=== PATIENT | male | born 1940 | race Caucasian/White ===

== ENCOUNTER 2019-04-04 09:47 | Inpatient (IN) | payer MEDICARE ==
[2019-04-04] MEDS ORDERED: SODIUM CHLORIDE 0.9% 1,000 ML IV STA (10:24)
--- NOTE | 2019-04-04 10:32 | ED ---
General Adult HPI - General Chief complaint: Abdominal Pain Stated complaint: abdominal pain Time Seen by Provider: 04/04/19 10:05 Source: patient, RN notes reviewed Mode of arrival: ambulatory Limitations: no limitations - History of Present Illness Initial comments: 79-year-old male with a past medical history of CLL, hernia repair presents to the emergency department for a chief complaint of abdominal pain. Patient states he has had right lower abdominal pain for several weeks however this worsened in the past few days. Patient denies any alleviating factors and states he has tried to take Pepcid without relief. Patient denies noticing any aggravating factors. Denies fevers or chills. Does admit that bowel movements do seem different, thinks he may be somewhat constipated. States he did try a suppository yesterday without relief. Patient does admit to 2 episodes of vomiting yesterday after trying to take Pepcid. Denies any significant nausea at this time. Patient has no other complaints at this time including shortness of breath, chest pain, headache, or visual changes. - Related Data Home Medications Medication Instructions Recorded Confirmed Ascorbic Acid [Vitamin C] 500 mg PO DAILY@1200 03/02/16 04/04/19 Aspirin [Adult Low Dose Aspirin EC] 81 mg PO Q96H 03/02/16 04/04/19 Multivitamins, Thera [Multivitamin] 1 tab PO DAILY@1200 03/02/16 04/04/19 Bifidobacterium Infantis [Align] 4 mg PO HS 04/04/19 04/04/19 Allergies Allergy/AdvReac Type Severity Reaction Status Date / Time Penicillins Allergy Swelling Verified 04/04/19 10:08 Sulfa (Sulfonamide Allergy Rash/Hives Verified 04/04/19 10:08 Antibiotics) Review of Systems ROS Statement: Those systems with pertinent positive or pertinent negative responses have been documented in the HPI. ROS Other: All systems not noted in ROS Statement are negative. Past Medical History Past Medical History: Cancer Additional Past Medical History / Comment(s): hx of CLL, DX 2000, follows up at [facility], seasonal allergies, hx polyps, hx hemorrhoids History of Any Multi-Drug Resistant Organisms: None Reported Past Surgical History: Hernia Repair Additional Past Surgical History / Comment(s): colonoscopy Past Anesthesia/Blood Transfusion Reactions: No Reported Reaction Past Psychological History: No Psychological Hx Reported Smoking Status: Former smoker Past Alcohol Use History: None Reported Past Drug Use History: None Reported - Past Family History Mother Family Medical History: Cancer Additional Family Medical History / Comment(s): breast Son(s) Family Medical History: Cancer, Coronary Artery Disease (CAD), Myocardial Infarction ([place]) Additional Family Medical History / Comment(s): non hodgkins lymphoma, General Exam Limitations: no limitations General appearance: alert, in no apparent distress Head exam: Present: atraumatic, normocephalic, normal inspection Eye exam: Present: normal appearance, PERRL, EOMI. Absent: scleral icterus, conjunctival injection, periorbital swelling ENT exam: Present: normal exam, mucous membranes moist Neck exam: Present: normal inspection, full ROM. Absent: tenderness, meningismus, lymphadenopathy Respiratory exam: Present: normal lung sounds bilaterally. Absent: respiratory distress, wheezes, rales, rhonchi, stridor Cardiovascular Exam: Present: tachycardia GI/Abdominal exam: Present: soft, tenderness (Patient has tenderness noted in the right lower quadrant suprapubic area. No tenderness in the upper abdomen, no tenderness in the left lower quadrant), normal bowel sounds, other (Noted induration in the right lower quadrant). Absent: distended, guarding, rebound, rigid Neurological exam: Present: alert, oriented X3, CN II-XII intact Psychiatric exam: Present: normal affect, normal mood Course Vital Signs 04/04/19 04/04/19 04/04/19 09:50 10:30 11:00 Temperature 98.5 F Pulse Rate 60 Respiratory 20 Rate Blood Pressure 91/62 113/71 113/71 O2 Sat by Pulse 96 94 L 99 Oximetry 04/04/19 04/04/19 04/04/19 11:30 12:00 12:19 Temperature 98.7 F Pulse Rate 112 H 116 H Respiratory 22 16 Rate Blood Pressure 112/63 102/64 O2 Sat by Pulse 99 100 Oximetry 04/04/19 04/04/19 12:30 13:00 Temperature Pulse Rate 111 H 112 H Respiratory 19 22 Rate Blood Pressure 126/76 109/64 O2 Sat by Pulse 95 Oximetry - Reevaluation(s) Reevaluation #1: 04/04/19 11:09 Patient reevaluated, comfortable in bed. Blood pressure 112/63, heart rate 111. Reevaluation #2: 04/04/19 11:34 Lactic 2.8, patient given 30 mL's per kilogram based on an ideal body weight of 75.2 kg. Reevaluation #3: 04/04/19 17:26 Dr. Romo requested NG tube, CBC CMP PT/INR in the morning as well as Levaquin 500 mg daily to nurse. This was ordered. EKG Findings - EKG Comments: EKG Findings:: Sinus tachycardia, ventricular rate 114, MO intervals 130, QTC 443 Medical Decision Making - Medical Decision Making 79-year-old male with a past medical history of CLL, hernia repair presents to the emergency room for a chief complaint of abdominal pain. States he has had right lower abdominal pain for several weeks however this worsen in the past few days. Worst last night. Does admit to one episode of vomiting that he states is more like a dry heaves, denies significant nausea at this time. Denies any aggravating or alleviating factors. On exam patient does have an induration noted of the right lower quadrant concerning for mass. CBC did show a white count of 18.4 with a lactic of 2.8, blood cultures pending. Patient was given 30 mL's per kilogram of fluids as he has been tachycardic in the 110s. However blood pressure is stable. Urine does not shows evidence of infection. He does have 53 red blood cells however was catheterized as he was not able to produce a urine sample. CT abdomen and pelvis did show a large right colonic mass with marked dilation of the cecum and small bowel compatible with high-grade obstruction. Findings suggestive of colonic malignancy with numerous hepatic lesions suggestive of metastasis as well as retroperitoneal lymphadenopathy. Dr. Romo does recommend IV Levaquin as well as NG tube to be started. Patient informed that he will be seen tomorrow morning by Dr. Romo/ - Lab Data Result diagrams: 04/04/19 10:09 04/04/19 10:09 Lab Results 04/04/19 04/04/19 04/04/19 Range/Units 10:09 10:09 10:09 WBC 18.4 H (3.8-10.6) k/uL RBC 6.23 H (4.30-5.90) m/uL Hgb 13.5 (13.0-17.5) gm/dL Hct 44.4 (39.0-53.0) % MCV 71.2 L (80.0-100.0) fL MCH 21.7 L (25.0-35.0) pg MCHC 30.4 L (31.0-37.0) g/dL RDW 15.3 (11.5-15.5) % Plt Count 364 (150-450) k/uL Neutrophils % 87 % Lymphocytes % 6 % Monocytes % 6 % Eosinophils % 0 % Basophils % 0 % Neutrophils # 15.9 H (1.3-7.7) k/uL Lymphocytes # 1.1 (1.0-4.8) k/uL Monocytes # 1.1 H (0-1.0) k/uL Eosinophils # 0.0 (0-0.7) k/uL Basophils # 0.1 (0-0.2) k/uL Hypochromasia Slight Microcytosis Moderate Sodium 137 (137-145) mmol/L Potassium 4.5 (3.5-5.1) mmol/L Chloride 102 (98-107) mmol/L Carbon Dioxide 22 (22-30) mmol/L Anion Gap 13 mmol/L BUN 22 H (9-20) mg/dL Creatinine 1.09 (0.66-1.25) mg/dL Est GFR (CKD-EPI)AfAm 74 (>60 ml/min/1.73 sqM) Est GFR (CKD-EPI)NonAf 64 (>60 ml/min/1.73 sqM) Glucose 181 H (74-99) mg/dL Lactic Ac Sepsis Rflx Plasma Lactic Acid Tha 2.8 H* (0.7-2.0) mmol/L Calcium 10.3 H (8.4-10.2) mg/dL Total Bilirubin 1.3 (0.2-1.3) mg/dL AST 36 (17-59) U/L ALT 23 (21-72) U/L Alkaline Phosphatase 163 H (38-126) U/L Total Protein 6.3 (6.3-8.2) g/dL Albumin 4.0 (3.5-5.0) g/dL Amylase 76 (30-110) U/L Lipase 81 (23-300) U/L Urine Color Urine Appearance (Clear) Urine pH (5.0-8.0) Ur Specific [place] (1.001-1.035) Urine Protein (Negative) Urine Glucose (UA) (Negative) Urine Ketones (Negative) Urine Blood (Negative) Urine Nitrite (Negative) Urine Bilirubin (Negative) Urine Urobilinogen (<2.0) mg/dL Ur Leukocyte Esterase (Negative) Urine RBC (0-5) /hpf Urine WBC (0-5) /hpf Ur Squamous Epith Cells (0-4) /hpf Urine Bacteria (None) /hpf Hyaline Casts (0-2) /lpf Urine Mucus (None) /hpf 04/04/19 04/04/19 Range/Units 11:31 12:19 WBC (3.8-10.6) k/uL RBC (4.30-5.90) m/uL Hgb (13.0-17.5) gm/dL Hct (39.0-53.0) % MCV (80.0-100.0) fL MCH (25.0-35.0) pg MCHC (31.0-37.0) g/dL RDW (11.5-15.5) % Plt Count (150-450) k/uL Neutrophils % % Lymphocytes % % Monocytes % % Eosinophils % % Basophils % % Neutrophils # (1.3-7.7) k/uL Lymphocytes # (1.0-4.8) k/uL Monocytes # (0-1.0) k/uL Eosinophils # (0-0.7) k/uL Basophils # (0-0.2) k/uL Hypochromasia Microcytosis Sodium (137-145) mmol/L Potassium (3.5-5.1) mmol/L Chloride (98-107) mmol/L Carbon Dioxide (22-30) mmol/L Anion Gap mmol/L BUN (9-20) mg/dL Creatinine (0.66-1.25) mg/dL Est GFR (CKD-EPI)AfAm (>60 ml/min/1.73 sqM) Est GFR (CKD-EPI)NonAf (>60 ml/min/1.73 sqM) Glucose (74-99) mg/dL Lactic Ac Sepsis Rflx Y Plasma Lactic Acid Tha (0.7-2.0) mmol/L Calcium (8.4-10.2) mg/dL Total Bilirubin (0.2-1.3) mg/dL AST (17-59) U/L ALT (21-72) U/L Alkaline Phosphatase (38-126) U/L Total Protein (6.3-8.2) g/dL Albumin (3.5-5.0) g/dL Amylase (30-110) U/L Lipase (23-300) U/L Urine Color [place] Urine Appearance Clear (Clear) Urine pH 5.5 (5.0-8.0) Ur Specific [place] 1.030 (1.001-1.035) Urine Protein 1+ H (Negative) Urine Glucose (UA) Negative (Negative) Urine Ketones Trace H (Negative) Urine Blood Small H (Negative) Urine Nitrite Negative (Negative) Urine Bilirubin Negative (Negative) Urine Urobilinogen 2.0 (<2.0) mg/dL Ur Leukocyte Esterase Trace H (Negative) Urine RBC 53 H (0-5) /hpf Urine WBC 3 (0-5) /hpf Ur Squamous Epith Cells 1 (0-4) /hpf Urine Bacteria Rare H (None) /hpf Hyaline Casts 16 H (0-2) /lpf Urine Mucus Few H (None) /hpf Disposition Clinical Impression: Colonic mass, Bowel obstruction Disposition: ADMITTED IP TO THIS HOSP Condition: Fair Time of Disposition: 17:37
[2019-04-04 10:51] LABS: Basophils # (A) 0.1 k/uL (0-0.2); Basophils % (A) 0 %; Eosinophils % (A) 0 %; HCT 44.4 % (39.0-53.0); HGB 13.5 gm/dL (13.0-17.5); Hypochromasia Slight; Lymphocytes # (A) 1.1 k/uL (1.0-4.8); Lymphocytes % (A) 6 %; MCH 21.7 pg (25.0-35.0); MCHC 30.4 g/dL (31.0-37.0); MCV 71.2 fL (80.0-100.0); Mean Platelet Volume 7.8; Microcytosis Moderate; Monocytes # (A) 1.1 k/uL (0-1.0); Monocytes % (A) 6 %; Neutrophils # (A) 15.9 k/uL (1.3-7.7); Neutrophils % (A) 87 %; Platelet Count 364 k/uL (150-450); RBC 6.23 m/uL (4.30-5.90); RDW 15.3 % (11.5-15.5); WBC 18.4 k/uL (3.8-10.6)
[2019-04-04 11:01] LABS: Calcium 10.3 mg/dL (8.4-10.2); Potassium 4.5 mmol/L (3.5-5.1); Total Bilirubin 1.3 mg/dL (0.2-1.3); Total Protein 6.3 g/dL (6.3-8.2)
[2019-04-04] MEDS ORDERED: SODIUM CHLORIDE 0.9% 500 ML 500 ML IV STA (11:16)
[2019-04-04] MEDS ORDERED: SODIUM CHLORIDE 0.9% 800 ML IV STA (11:34)
[2019-04-04 12:25] LABS: Appearance,Urine Clear (Clear); Bacteria,Urine Rare /hpf; Bilirubin,Urine Negative (Negative); Blood,Urine Small (Negative); Color,Urine Orange; Glucose,Urine (UA) Negative (Negative); Hyaline Casts,Urine 16 /lpf (0-2); Ketones,Urine Trace (Negative); Leukocyte Esterase,Urine Trace (Negative); Mucus,Urine Few /hpf; Nitrite,Urine Negative (Negative); PH, Urine 5.5 (5.0-8.0); Protein,Urine 1+ (Negative); RBC,Urine 53 /hpf (0-5); Squamous Epithelial Cell,Urine 1 /hpf (0-4); WBC,Urine 3 /hpf (0-5)
--- NOTE | 2019-04-04 13:19 | CT ---
EXAMINATION TYPE: CT abdomen pelvis w con DATE OF EXAM: 04/04/2019 COMPARISON: None HISTORY: RLQ pain CT DLP: 952.5 mGycm Automated exposure control for dose reduction was used. CONTRAST: CT scan of the abdomen pelvis is performed with IV Contrast, patient injected with 100 mL of Isovue 3 00. FINDINGS- LUNG BASES-year subsegmental changes involving the lung bases suggestive of scar or atelectasis.. LIVER/GB-there are numerous intrahepatic lesions seen throughout the liver pattern compatible metasta sis involving all segments and lobes of the liver. At least 20 lesions are seen with the largest in t he posterior segment of the right lobe of the liver measuring approximately 1.8 cm.. PANCREAS- No gross abnormality is seen. SPLEEN- No gross abnormality is seen. ADRENALS- No gross abnormality is seen. KIDNEYS/BLADDER- no hydronephrosis nephrolithiasis or renal mass. BOWEL-there are dilated small bowel loops in a pattern suggestive of obstruction. There is a large mi xed fluid and air attenuation in the right lower quadrant representing a dilated cecum with extrinsic soft tissue component likely representing a neoplastic process of the right colon and subsequent cec al dilation. Surgical consultation suggested.. LYMPH NODES- There are shoddy lymph nodes seen in the periaortic region with the largest measuring a short axis of 1.8 cm. Findings compatible with adenopathy. OSSEOUS STRUCTURES-hypertrophic and degenerative change of the vertebral column.. OTHER- aorta of normal caliber with atherosclerotic changes. IMPRESSION- 1. Large right colonic mass with marked dilation of the cecum and small bowel compatible with high-gr hayden obstruction. Findings suggestive of a colonic malignancy. 2. Numerous hepatic lesions suggestive of metastases. 3. Retroperitoneal lymphadenopathy.
[2019-04-04] MEDS ORDERED: HYDROmorphone 0.5 MG/0.5 ML SYRINGE IVP PRN (13:38)
[2019-04-04] MEDS ORDERED: NALOXONE 0.4 MG/ML 1 ML VIAL IV PRN (13:38)
[2019-04-04] MEDS ORDERED: LEVOFLOXACIN 500MG-D5W PMX 500 MG in DEXTROSE/WATER 1 100ML.BAG IVPB SCH (15:30)
--- NOTE | 2019-04-04 15:35 | P.PN ---
Progress Note - Text Progress Note Date: 04/04/19 the patient's CAT scan was reviewed. He has a large right colon tumor obstructing the cecum and small bowel. The patient has a high-grade bowel obstruction. He will have a nasogastric tube placed. He was started on IV antibiotics and received a fluid bolus. He will be reassessed and most likely need surgery in the a.m. for his bowel obstruction.
--- NOTE | 2019-04-04 16:20 | XR ---
EXAMINATION TYPE: XR chest 1V DATE OF EXAM: 04/04/2019 COMPARISON: NONE HISTORY: NG tube placement TECHNIQUE: Single frontal view of the chest is obtained. FINDINGS: There is subsegmental consolidation at the right lung base. NG tube is coiled within the l eft upper quadrant likely within the stomach. Patient is rotated with no obvious pneumothorax or over t failure. Heart size grossly within normal limits. IMPRESSION: 1. Right basilar atelectasis or infiltrate. 2. NG tube coiled within the left upper quadrant likely within the stomach.
[2019-04-04] MEDS: SODIUM CHLORIDE 0.9% 1,000 ML IV SCH (16:24)
[2019-04-04] MEDS ORDERED: ACETAMINOPHEN IV (For NPO) 1,000 MG in EMPTY BAG 1 BAG IVPB ONE (18:36)
[2019-04-04] MEDS: PIPERACILLIN-TAZOBACTAM 3.375 GM in SODIUM CHLORIDE 0.9% 100 ML IVPB SCH (20:51)
--- NOTE | 2019-04-04 20:59 | P.HPIM ---
History of Present Illness H&P Date: 04/04/19 Chief Complaint: severe intractable dominant pain, bowel obstruction, large mass in the rig 7-year-old male one of my office patient with known for the last 7 years with past medical history of CLL, history of elevated blood pressure and BPH along with mild hyperlipidemia who has been doing well was moved to [facility] few years ago used to see all primary care and health care provider down at [facility]. Patient called this morning complaining of intractable pain with nausea for the last few days with no bowel movement become much worse symptoms located in the right lower quadrant area was instructed to bring him to the emergency department where was seen and evaluated at [facility] surprisingly abdominal CT came back with large mass in the right side with metastasis looks like stage IV colon cancer. Review his last colonoscopy from 2015 was negative for any polyp colitis or finding at the time. Patient also is going through bowel obstruction NG tube was inserted patient was seen general surgery in consultation with his temperature been elevated patient was started on Zosyn and Levaquin pain management IV fluid resuscitation and will be admitted to the hospital for the above problem. Review of Systems CONSTITUTIONAL: Well-developed no acute respiratory distress. EYES: No icterus sclerae, no conjunctivitis. EARS, NOSE, MOUTH, THROAT, and FACE: No sore throat, lymphadenopathy, carotid b ruits or deformity. RESPIRATORY: No SOB cough or wheezes. CARDIOVASCULAR: No CP, Palpitation, PND, Orthopnea, or angina. GASTROINTESTINAL: abdominal pain with nausea vomiting distention and mass in t he right colon area. GENITOURINARY: Negative for Hematuria or UTI, no kidney stones. INTEGUMENT/BREAST: Negative for any muscular injury with mild osteoarthritis.. HEMATOLOGIC/LYMPHATIC: history of CLL, mass was found today in the right MUSCULOSKELTAL: Negative for Myalgia or arthralgia. NEURLOGICAL: No LOC, Sz or syncope, blurred vision dizziness or abnormality.. BEHAVIORAL/PSYCH: Negative. ENDOCRINE: Negative. Past Medical History Past Medical History: Cancer Additional Past Medical History / Comment(s): hx of CLL, DX 2000, follows up at [facility], seasonal allergies, hx polyps, hx hemorrhoids History of Any Multi-Drug Resistant Organisms: None Reported Past Surgical History: Hernia Repair Additional Past Surgical History / Comment(s): colonoscopy Past Anesthesia/Blood Transfusion Reactions: No Reported Reaction Past Psychological History: No Psychological Hx Reported Smoking Status: Former smoker Past Alcohol Use History: None Reported Past Drug Use History: None Reported - Past Family History Mother Family Medical History: Cancer Additional Family Medical History / Comment(s): breast Son(s) Family Medical History: Cancer, Coronary Artery Disease (CAD), Myocardial Infarction ([place]) Additional Family Medical History / Comment(s): non hodgkins lymphoma, Medications and Allergies Home Medications Medication Instructions Recorded Confirmed Type Ascorbic Acid [Vitamin C] 500 mg PO DAILY@1200 03/02/16 04/04/19 History Aspirin [Adult Low Dose Aspirin EC] 81 mg PO Q96H 03/02/16 04/04/19 History Multivitamins, Thera [Multivitamin] 1 tab PO DAILY@1200 03/02/16 04/04/19 History Bifidobacterium Infantis [Align] 4 mg PO HS 04/04/19 04/04/19 History Allergies Allergy/AdvReac Type Severity Reaction Status Date / Time Penicillins Allergy Swelling Verified 04/04/19 10:08 Sulfa (Sulfonamide Allergy Rash/Hives Verified 04/04/19 10:08 Antibiotics) Physical Exam Vitals: Vital Signs Temp Pulse Resp BP Pulse Ox 04/04/19 18:30 107 H 19 108/70 95 04/04/19 18:20 101.1 F H 04/04/19 18:00 113 H 22 113/69 94 L 04/04/19 17:30 112 H 21 114/69 95 04/04/19 17:00 114 H 19 119/72 95 04/04/19 16:30 111 H 20 131/82 95 04/04/19 16:00 114 H 17 119/68 04/04/19 15:30 111 H 19 117/70 96 04/04/19 15:00 113 H 16 111/68 97 04/04/19 14:30 110 H 16 122/75 98 04/04/19 14:00 112 H 17 119/73 99 04/04/19 13:30 115 H 18 109/64 98 04/04/19 13:00 112 H 22 109/64 95 04/04/19 12:30 111 H 19 126/76 04/04/19 12:19 98.7 F 04/04/19 12:00 116 H 16 102/64 100 04/04/19 11:30 112 H 22 112/63 99 04/04/19 11:00 113/71 99 04/04/19 10:30 113/71 94 L 04/04/19 09:50 98.5 F 60 20 91/62 96 Intake and Output 04/04/19 04/04/19 04/04/19 06:59 14:59 22:59 Other: Weight 74.389 kg General Appearance: Alert, cooperative, no distress, appears stated age. Neck HEENT: Supple, no lymphadenopathy, no thyroid enlargement, no carotid bruits. Lungs: Clear to auscultation without crackles or wheezes no rhonchi, no deformity. Chest Wall: Chest wall normal expansion with deep inspiration no tenderness and no deformity was found on exam, no costochondral pain or discomfort. Heart: Regular rate and rhythm, S1, S2 normal, no murmur, rub or gallop. Back: Symmetric, no curvature, ROM normal, no CVA tenderness. Abdomen: distended with quite bit tenderness and discomfort in the right lower quadrant area with mid epigastric discomfort as well not able to feel any lymph node in the groin area at this point. Extremities: Extremities normal, atraumatic, no cyanosis or edema. Pulses: 2+ and symmetric. Skin: Skin color, texture, tugor normal, no rashes or lesions. Neurologic: Alert oriented x3 cranial nerves II through XII intact, no motor deficit, no abnormal balance or gait. Results CBC & Chem 7: 04/04/19 10:09 04/04/19 10:09 Labs: Abnormal Lab Results - Last 24 Hours (Table) 04/04/19 04/04/19 04/04/19 Range/Units 10:09 10:09 10:09 WBC 18.4 H (3.8-10.6) k/uL RBC 6.23 H (4.30-5.90) m/uL MCV 71.2 L (80.0-100.0) fL MCH 21.7 L (25.0-35.0) pg MCHC 30.4 L (31.0-37.0) g/dL Neutrophils # 15.9 H (1.3-7.7) k/uL Monocytes # 1.1 H (0-1.0) k/uL BUN 22 H (9-20) mg/dL Glucose 181 H (74-99) mg/dL Plasma Lactic Acid Tha 2.8 H* (0.7-2.0) mmol/L Calcium 10.3 H (8.4-10.2) mg/dL Alkaline Phosphatase 163 H (38-126) U/L Urine Protein (Negative) Urine Ketones (Negative) Urine Blood (Negative) Ur Leukocyte Esterase (Negative) Urine RBC (0-5) /hpf Urine Bacteria (None) /hpf Hyaline Casts (0-2) /lpf Urine Mucus (None) /hpf 04/04/19 Range/Units 12:19 WBC (3.8-10.6) k/uL RBC (4.30-5.90) m/uL MCV (80.0-100.0) fL MCH (25.0-35.0) pg MCHC (31.0-37.0) g/dL Neutrophils # (1.3-7.7) k/uL Monocytes # (0-1.0) k/uL BUN (9-20) mg/dL Glucose (74-99) mg/dL Plasma Lactic Acid Tha (0.7-2.0) mmol/L Calcium (8.4-10.2) mg/dL Alkaline Phosphatase (38-126) U/L Urine Protein 1+ H (Negative) Urine Ketones Trace H (Negative) Urine Blood Small H (Negative) Ur Leukocyte Esterase Trace H (Negative) Urine RBC 53 H (0-5) /hpf Urine Bacteria Rare H (None) /hpf Hyaline Casts 16 H (0-2) /lpf Urine Mucus Few H (None) /hpf Thrombosis Risk Factor Assmnt - DVT/VTE Prophylaxis DVT/VTE Prophylaxis: Pharmacologic Prophylaxis ordered, Mechanical Prophylaxis ordered Assessment and Plan Plan: 1 severe intractable abdominal pain: Secondary to bowel obstruction from large right-sided colon cancer, patient has an NG tube CT was done continue IV antibiotics, IV hydration, pain management and general surgery consultation. 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 3 large right-sided colon cancer or mass: seen general surgery [facility], further lab and oncology consultation. 4 history of CLL: Has been in remission. 5 fever or chills and possible infectious colitis beside obstruction, with a concern about any early perforation and very toenail irritation patient was started on Zosyn and Levaquin. 6 BPH: Watch for any urinary retention. 7 GI prophylaxis: Patient will be on pantoprazole 40 mg daily. 8 DVT prophylaxis: Patient will be on heparin 5000 units subcutaneous twice a day. CODE STATUS: Full code. Admit patient to inpatient status for more than 2 nights.
[2019-04-04 21:24] LABS: Glucose,Whole Blood 145 mg/dL (75-99)
[2019-04-05] MEDS: PANTOPRAZOLE 40 MG/10 ML VIAL IVP SCH ×2 (00:11→09:09)
[2019-04-05] MEDS: HEPARIN SODIUM,PORCINE 5,000 UNIT/ML 1 ML VIAL SQ SCH ×3 (00:12→16:13)
[2019-04-05] MEDS: PIPERACILLIN-TAZOBACTAM 3.375 GM in SODIUM CHLORIDE 0.9% 100 ML IVPB SCH ×3 (00:12→19:57)
[2019-04-05] MEDS: SODIUM CHLORIDE 0.9% 1,000 ML IV SCH ×3 (02:05→19:01)
[2019-04-05 06:59] LABS: Basophils % (A) 0 %; Eosinophils % (A) 0 %; HCT 36.1 % (39.0-53.0); Hypochromasia Slight; Lymphocytes # (A) 1.1 k/uL (1.0-4.8); Lymphocytes % (A) 11 %; MCH 21.9 pg (25.0-35.0); MCHC 30.5 g/dL (31.0-37.0); MCV 71.8 fL (80.0-100.0); Mean Platelet Volume 7.2; Microcytosis Moderate; Monocytes # (A) 0.7 k/uL (0-1.0); Monocytes % (A) 7 %; Neutrophils # (A) 7.9 k/uL (1.3-7.7); Neutrophils % (A) 80 %; Platelet Count 255 k/uL (150-450); RBC 5.03 m/uL (4.30-5.90); RDW 15.1 % (11.5-15.5); WBC 9.9 k/uL (3.8-10.6)
[2019-04-05 07:07] LABS: INR 1.3 (<1.2); Prothrombin Time 13.6 sec (9.0-12.0)
[2019-04-05 07:10] LABS: Albumin 2.8 g/dL (3.5-5.0); Calcium 8.6 mg/dL (8.4-10.2); Potassium 3.8 mmol/L (3.5-5.1); Total Bilirubin 1.3 mg/dL (0.2-1.3); Total Protein 4.8 g/dL (6.3-8.2)
--- NOTE | 2019-04-05 10:48 | P.GSCN ---
<Swati Mendez - Last Filed: 04/05/19 10:42> History of Present Illness Consult date: 04/05/19 Reason for Consult: bowel obstruction Requesting physician: Baldo Matthew History of present illness: CHIEF COMPLAINT: Colonic obstruction HISTORY OF PRESENT ILLNESS: 79-year-old male who presents to the ER with a chief complaint of abdominal pain. Patient reports generalized abdominal pain over the past week. He also reports difficulty having a bowel movement and states his stools have been loose when he does have a bowel movement. Denies nausea or vomiting. Patient and colonoscopy performed in February 2016 which revealed normal colon and internal hemorrhoids. PAST MEDICAL HISTORY: See list. PAST SURGICAL HISTORY: See list. SOCIAL HISTORY: No illicit drug use. REVIEW OF SYSTEMS: CONSTITUTIONAL: Denies fever or chills. HEENT: Denies blurred vision, vision changes, or eye pain. Denies hemoptysis CARDIOVASCULAR: Denies chest pain or pressure. RESPIRATORY: No shortness of breath. GASTROINTESTINAL: Refer to HPI for pertinent findings HEMATOLOGIC: Denies bleeding disorders. GENITOURINARY: Denies any blood in urine. SKIN: Denies pruitis. Denies rash. PHYSICAL EXAM: VITAL SIGNS: Reviewed. GENERAL: Well-developed in no acute distress. HEENT: No sclera icterus. Extraocular movements grossly intact. Moist buccal mucosa. Head is atraumatic, normocephalic. ABDOMEN: Distended. Mild tenderness. Positive bowel sounds. NEUROLOGIC: Alert and oriented. Cranial nerves II through XII grossly intact. ASSESSMENT: 1. Abdominal pain 2. Acute large bowel obstruction, secondary to right colonic mass PLAN: Continue NG. NPO. Continue IV fluids. Patient to undergo right colectomy today with Dr. Romo. Oncology consulted and also following. Nurse practitioner note has been reviewed by physician. Signing provider agrees with the documented findings, assessment, and plan of care. Past Medical History Past Medical History: Cancer, Hyperlipidemia, Hypertension Additional Past Medical History / Comment(s): hx of CLL, DX 2000, follows up at [facility], seasonal allergies, hx polyps, hx hemorrhoids History of Any Multi-Drug Resistant Organisms: None Reported Past Surgical History: Hernia Repair, Tonsillectomy Additional Past Surgical History / Comment(s): colonoscopy, vasectomy, polypectomy Past Anesthesia/Blood Transfusion Reactions: No Reported Reaction Past Psychological History: No Psychological Hx Reported Smoking Status: Former smoker Past Alcohol Use History: None Reported Additional Past Alcohol Use History / Comment(s): started smoking age 34, (1972) quit 1980, Past Drug Use History: None Reported - Past Family History Mother Family Medical History: Cancer Additional Family Medical History / Comment(s): breast Son(s) Family Medical History: Cancer, Coronary Artery Disease (CAD), Myocardial Infarction ([place]) Additional Family Medical History / Comment(s): non hodgkins lymphoma, Medications and Allergies Home Medications Medication Instructions Recorded Confirmed Type Ascorbic Acid [Vitamin C] 500 mg PO DAILY@1200 03/02/16 04/04/19 History Aspirin [Adult Low Dose Aspirin EC] 81 mg PO Q7DAYS 03/02/16 04/04/19 History Multivitamins, Thera [Multivitamin] 1 tab PO DAILY@1200 03/02/16 04/04/19 History Bifidobacterium Infantis [Align] 4 mg PO HS 04/04/19 04/04/19 History Allergies Allergy/AdvReac Type Severity Reaction Status Date / Time Penicillins Allergy Swelling Verified 04/04/19 22:30 Sulfa (Sulfonamide Allergy Rash/Hives Verified 04/04/19 10:08 Antibiotics) Surgical - Exam Vital Signs Temp Pulse Resp BP Pulse Ox 98.5 F 60 20 91/62 96 04/04/19 09:50 04/04/19 09:50 04/04/19 09:50 04/04/19 09:50 04/04/19 09:50 Results - Labs 04/05/19 06:28 04/05/19 06:28 Abnormal Lab Results - Last 24 Hours (Table) 04/04/19 04/04/19 04/04/19 Range/Units 10:09 10:09 10:09 WBC 18.4 H (3.8-10.6) k/uL RBC 6.23 H (4.30-5.90) m/uL Hgb (13.0-17.5) gm/dL Hct (39.0-53.0) % MCV 71.2 L (80.0-100.0) fL MCH 21.7 L (25.0-35.0) pg MCHC 30.4 L (31.0-37.0) g/dL Neutrophils # 15.9 H (1.3-7.7) k/uL Monocytes # 1.1 H (0-1.0) k/uL PT (9.0-12.0) sec INR (<1.2) Chloride (98-107) mmol/L BUN 22 H (9-20) mg/dL Glucose 181 H (74-99) mg/dL POC Glucose (mg/dL) (75-99) mg/dL Plasma Lactic Acid Tha 2.8 H* (0.7-2.0) mmol/L Calcium 10.3 H (8.4-10.2) mg/dL Alkaline Phosphatase 163 H (38-126) U/L Total Protein (6.3-8.2) g/dL Albumin (3.5-5.0) g/dL Urine Protein (Negative) Urine Ketones (Negative) Urine Blood (Negative) Ur Leukocyte Esterase (Negative) Urine RBC (0-5) /hpf Urine Bacteria (None) /hpf Hyaline Casts (0-2) /lpf Urine Mucus (None) /hpf 04/04/19 04/04/19 04/05/19 Range/Units 12:19 21:22 06:28 WBC (3.8-10.6) k/uL RBC (4.30-5.90) m/uL Hgb 11.0 L (13.0-17.5) gm/dL Hct 36.1 L (39.0-53.0) % MCV 71.8 L (80.0-100.0) fL MCH 21.9 L (25.0-35.0) pg MCHC 30.5 L (31.0-37.0) g/dL Neutrophils # 7.9 H (1.3-7.7) k/uL Monocytes # (0-1.0) k/uL PT (9.0-12.0) sec INR (<1.2) Chloride (98-107) mmol/L BUN (9-20) mg/dL Glucose (74-99) mg/dL POC Glucose (mg/dL) 145 H (75-99) mg/dL Plasma Lactic Acid Tha (0.7-2.0) mmol/L Calcium (8.4-10.2) mg/dL Alkaline Phosphatase (38-126) U/L Total Protein (6.3-8.2) g/dL Albumin (3.5-5.0) g/dL Urine Protein 1+ H (Negative) Urine Ketones Trace H (Negative) Urine Blood Small H (Negative) Ur Leukocyte Esterase Trace H (Negative) Urine RBC 53 H (0-5) /hpf Urine Bacteria Rare H (None) /hpf Hyaline Casts 16 H (0-2) /lpf Urine Mucus Few H (None) /hpf 04/05/19 04/05/19 Range/Units 06:28 06:28 WBC (3.8-10.6) k/uL RBC (4.30-5.90) m/uL Hgb (13.0-17.5) gm/dL Hct (39.0-53.0) % MCV (80.0-100.0) fL MCH (25.0-35.0) pg MCHC (31.0-37.0) g/dL Neutrophils # (1.3-7.7) k/uL Monocytes # (0-1.0) k/uL PT 13.6 H (9.0-12.0) sec INR 1.3 H (<1.2) Chloride 111 H (98-107) mmol/L BUN 24 H (9-20) mg/dL Glucose 118 H (74-99) mg/dL POC Glucose (mg/dL) (75-99) mg/dL Plasma Lactic Acid Tha (0.7-2.0) mmol/L Calcium (8.4-10.2) mg/dL Alkaline Phosphatase (38-126) U/L Total Protein 4.8 L (6.3-8.2) g/dL Albumin 2.8 L (3.5-5.0) g/dL Urine Protein (Negative) Urine Ketones (Negative) Urine Blood (Negative) Ur Leukocyte Esterase (Negative) Urine RBC (0-5) /hpf Urine Bacteria (None) /hpf Hyaline Casts (0-2) /lpf Urine Mucus (None) /hpf Diabetes panel 04/04/19 04/05/19 Range/Units 10:09 06:28 Sodium 137 139 (137-145) mmol/L Potassium 4.5 3.8 (3.5-5.1) mmol/L Chloride 102 111 H (98-107) mmol/L Carbon Dioxide 22 22 (22-30) mmol/L BUN 22 H 24 H (9-20) mg/dL Creatinine 1.09 1.09 (0.66-1.25) mg/dL Glucose 181 H 118 H (74-99) mg/dL Calcium 10.3 H 8.6 (8.4-10.2) mg/dL AST 36 20 (17-59) U/L ALT 23 23 (21-72) U/L Alkaline Phosphatase 163 H 102 (38-126) U/L Total Protein 6.3 4.8 L (6.3-8.2) g/dL Albumin 4.0 2.8 L (3.5-5.0) g/dL Calcium panel 04/04/19 04/05/19 Range/Units 10: 06:28 Calcium 10.3 H 8.6 (8.4-10.2) mg/dL Albumin 4.0 2.8 L (3.5-5.0) g/dL Pituitary panel 04/04/19 04/05/19 Range/Units 10: 06:28 Sodium 137 139 (137-145) mmol/L Potassium 4.5 3.8 (3.5-5.1) mmol/L Chloride 102 111 H (98-107) mmol/L Carbon Dioxide 22 22 (22-30) mmol/L BUN 22 H 24 H (9-20) mg/dL Creatinine 1.09 1.09 (0.66-1.25) mg/dL Glucose 181 H 118 H (74-99) mg/dL Calcium 10.3 H 8.6 (8.4-10.2) mg/dL Adrenal panel 04/04/19 04/05/19 Range/Units 10: 06:28 Sodium 137 139 (137-145) mmol/L Potassium 4.5 3.8 (3.5-5.1) mmol/L Chloride 102 111 H (98-107) mmol/L Carbon Dioxide 22 22 (22-30) mmol/L BUN 22 H 24 H (9-20) mg/dL Creatinine 1.09 1.09 (0.66-1.25) mg/dL Glucose 181 H 118 H (74-99) mg/dL Calcium 10.3 H 8.6 (8.4-10.2) mg/dL Total Bilirubin 1.3 1.3 (0.2-1.3) mg/dL AST 36 20 (17-59) U/L ALT 23 23 (21-72) U/L Alkaline Phosphatase 163 H 102 (38-126) U/L Total Protein 6.3 4.8 L (6.3-8.2) g/dL Albumin 4.0 2.8 L (3.5-5.0) g/dL <Arsen Romo - Last Filed: 04/05/19 14:30> History of Present Illness Consult date: 04/04/19 Surgical - Exam Vital Signs Temp Pulse Resp BP Pulse Ox 98.5 F 60 20 91/62 96 04/04/19 09:50 04/04/19 09:50 04/04/19 09:50 04/04/19 09:50 04/04/19 09:50 Results - Labs 04/05/19 06:28 04/05/19 06:28 Abnormal Lab Results - Last 24 Hours (Table) 04/04/19 04/05/19 04/05/19 Range/Units 21:22 06:28 06:28 Hgb 11.0 L (13.0-17.5) gm/dL Hct 36.1 L (39.0-53.0) % MCV 71.8 L (80.0-100.0) fL MCH 21.9 L (25.0-35.0) pg MCHC 30.5 L (31.0-37.0) g/dL Neutrophils # 7.9 H (1.3-7.7) k/uL PT 13.6 H (9.0-12.0) sec INR 1.3 H (<1.2) Chloride (98-107) mmol/L BUN (9-20) mg/dL Glucose (74-99) mg/dL POC Glucose (mg/dL) 145 H (75-99) mg/dL Total Protein (6.3-8.2) g/dL Albumin (3.5-5.0) g/dL 04/05/19 Range/Units 06:28 Hgb (13.0-17.5) gm/dL Hct (39.0-53.0) % MCV (80.0-100.0) fL MCH (25.0-35.0) pg MCHC (31.0-37.0) g/dL Neutrophils # (1.3-7.7) k/uL PT (9.0-12.0) sec INR (<1.2) Chloride 111 H (98-107) mmol/L BUN 24 H (9-20) mg/dL Glucose 118 H (74-99) mg/dL POC Glucose (mg/dL) (75-99) mg/dL Total Protein 4.8 L (6.3-8.2) g/dL Albumin 2.8 L (3.5-5.0) g/dL Microbiology - Last 24 Hours (Table) 04/04/19 12:00 Blood Culture - Preliminary Blood No Growth after 24 hours Diabetes panel 04/05/19 Range/Units 06:28 Sodium 139 (137-145) mmol/L Potassium 3.8 (3.5-5.1) mmol/L Chloride 111 H (98-107) mmol/L Carbon Dioxide 22 (22-30) mmol/L BUN 24 H (9-20) mg/dL Creatinine 1.09 (0.66-1.25) mg/dL Glucose 118 H (74-99) mg/dL Calcium 8.6 (8.4-10.2) mg/dL AST 20 (17-59) U/L ALT 23 (21-72) U/L Alkaline Phosphatase 102 (38-126) U/L Total Protein 4.8 L (6.3-8.2) g/dL Albumin 2.8 L (3.5-5.0) g/dL Calcium panel 04/05/19 Range/Units 06:28 Calcium 8.6 (8.4-10.2) mg/dL Albumin 2.8 L (3.5-5.0) g/dL Pituitary panel 04/05/19 Range/Units 06:28 Sodium 139 (137-145) mmol/L Potassium 3.8 (3.5-5.1) mmol/L Chloride 111 H (98-107) mmol/L Carbon Dioxide 22 (22-30) mmol/L BUN 24 H (9-20) mg/dL Creatinine 1.09 (0.66-1.25) mg/dL Glucose 118 H (74-99) mg/dL Calcium 8.6 (8.4-10.2) mg/dL Adrenal panel 04/05/19 Range/Units 06:28 Sodium 139 (137-145) mmol/L Potassium 3.8 (3.5-5.1) mmol/L Chloride 111 H (98-107) mmol/L Carbon Dioxide 22 (22-30) mmol/L BUN 24 H (9-20) mg/dL Creatinine 1.09 (0.66-1.25) mg/dL Glucose 118 H (74-99) mg/dL Calcium 8.6 (8.4-10.2) mg/dL Total Bilirubin 1.3 (0.2-1.3) mg/dL AST 20 (17-59) U/L ALT 23 (21-72) U/L Alkaline Phosphatase 102 (38-126) U/L Total Protein 4.8 L (6.3-8.2) g/dL Albumin 2.8 L (3.5-5.0) g/dL
--- NOTE | 2019-04-05 10:51 | P.CONS ---
History of Present Illness - Reason for Consult Consult date: 04/05/19 Right-sided colon mass, liver lesions Requesting physician: Jacob Welch - Chief Complaint Progressive Abdominal pain - History of Present Illness Mr. Couch is a very pleasant 79-year-old male with a history of BPH, hypertension, hyperlipidemia, very remote history of a CLL diagnosis in 2000 with no treatment and no evidence of disease. Over the last week patient has noted increased abdominal pain, right sided, associated with constipation and change in stool consistency, CT of the abdomen and pelvis revealed dilated bowel loops, soft tissue mass with cecal dilation, at least 20 liver lesions, shotty periaortic adenopathy, he is going to surgery this afternoon with Dr. Romo. Positive for a 10 pound weight loss in the last month or so, unusual instances of hiccups, mild abd distension, denies Denied black or bloody stool, fevers, dysphagia, odynophagia, chest pain, palpitations, dysuria, hematuria, lower extremity swelling, no history of EtOH, liver disease. Review of Systems 14 point review of systems is negative except as stated in HPI Past Medical History Past Medical History: Cancer, Hyperlipidemia, Hypertension Additional Past Medical History / Comment(s): hx of CLL, DX 2000, follows up at [facility], seasonal allergies, hx polyps, hx hemorrhoids History of Any Multi-Drug Resistant Organisms: None Reported Past Surgical History: Hernia Repair, Tonsillectomy Additional Past Surgical History / Comment(s): colonoscopy, vasectomy, polypectomy Past Anesthesia/Blood Transfusion Reactions: No Reported Reaction Past Psychological History: No Psychological Hx Reported Smoking Status: Former smoker Past Alcohol Use History: None Reported Additional Past Alcohol Use History / Comment(s): started smoking age 34, (1972) quit 1980, Past Drug Use History: None Reported - Past Family History Mother Family Medical History: Cancer Additional Family Medical History / Comment(s): breast Son(s) Family Medical History: Cancer, Coronary Artery Disease (CAD), Myocardial Infarction ([place]) Additional Family Medical History / Comment(s): non hodgkins lymphoma, Medications and Allergies Home Medications Medication Instructions Recorded Confirmed Type Ascorbic Acid [Vitamin C] 500 mg PO DAILY@1200 03/02/16 04/04/19 History Aspirin [Adult Low Dose Aspirin EC] 81 mg PO Q7DAYS 03/02/16 04/04/19 History Multivitamins, Thera [Multivitamin] 1 tab PO DAILY@1200 03/02/16 04/04/19 History Bifidobacterium Infantis [Align] 4 mg PO HS 04/04/19 04/04/19 History Allergies Allergy/AdvReac Type Severity Reaction Status Date / Time Penicillins Allergy Swelling Verified 04/04/19 22:30 Sulfa (Sulfonamide Allergy Rash/Hives Verified 04/04/19 10:08 Antibiotics) Physical Exam Vitals: Vital Signs Temp Pulse Pulse Resp BP BP Pulse Ox 04/05/19 05:21 98.5 F 107 H 20 113/65 95 04/04/19 22:36 98.3 F 104 H 18 105/66 95 04/04/19 21:16 98.3 F 102 H 18 96/64 96 04/04/19 18:30 107 H 19 108/70 95 04/04/19 18:20 101.1 F H 04/04/19 18:00 113 H 22 113/69 94 L 04/04/19 17:30 112 H 21 114/69 95 04/04/19 17:00 114 H 19 119/72 95 04/04/19 16:30 111 H 20 131/82 95 04/04/19 16:00 114 H 17 119/68 04/04/19 15:30 111 H 19 117/70 96 04/04/19 15:00 113 H 16 111/68 97 04/04/19 14:30 110 H 16 122/75 98 04/04/19 14:00 112 H 17 119/73 99 04/04/19 13:30 115 H 18 109/64 98 04/04/19 13:00 112 H 22 109/64 95 04/04/19 12:30 111 H 19 126/76 04/04/19 12:19 98.7 F 04/04/19 12:00 116 H 16 102/64 100 04/04/19 11:30 112 H 22 112/63 99 04/04/19 11:00 113/71 99 Intake and Output 04/04/19 04/05/19 04/05/19 22:59 06:59 14:59 Intake Total 940 Output Total 350 Balance 590 Intake: Intake, IV Titration 940 Amount Piperacillin-Tazobactam 3 100 .375 gm In Sodium Chloride 0.9% 100 ml @ 25 mls/hr IVPB Q8HR [facility] Rx# :[id number] Sodium Chloride 0.9% 1, 840 000 ml @ 120 mls/hr IV . Q8H20M [facility] Rx#:[id number] Output: Gastric Drainage 350 Other: Voiding Method Toilet # Voids 1 1 # Bowel Movements 1 1 - Constitutional General appearance: average body habitus, cooperative, no acute distress - EENT Eyes: anicteric sclerae, EOMI, dentition normal, normal appearance ENT: no hard of hearing, hearing grossly normal, no NA/AT, normal oropharynx, no other, no pharyngeal erythema, no thrush, no tonsillar exudates, no tonsillar swelling - Neck Neck: no lymphadenopathy - Respiratory Respiratory: bilateral: CTA - Cardiovascular Heart sounds: normal: S1, S2 Abnormal Heart Sounds: no systolic murmur, no diastolic murmur, no rub, no S3 Gallop, no S4 Gallop, no click, no other leg Peripheral Edema: bilateral: None - Gastrointestinal General gastrointestinal: no absent bowel sounds, no decreased bowel sounds, no distended, no hepatomegaly, no hyperactive bowel sounds, normal bowel sounds, no organomegaly, no rigid, no scaphoid, soft, no splenomegaly, tenderness, no umbilical hernia, no ventral hernia - Integumentary Integumentary: normal - Neurologic Neurologic: CNII-XII intact - Musculoskeletal Musculoskeletal: strength equal bilaterally - Psychiatric Psychiatric: A&O x's 3, appropriate affect, intact judgment & insight Results CBC & Chem 7: 04/05/19 06:28 04/05/19 06:28 Labs: Abnormal Lab Results - Last 24 Hours (Table) 04/04/19 04/04/19 04/04/19 Range/Units 10:09 10:09 10:09 WBC 18.4 H (3.8-10.6) k/uL RBC 6.23 H (4.30-5.90) m/uL Hgb (13.0-17.5) gm/dL Hct (39.0-53.0) % MCV 71.2 L (80.0-100.0) fL MCH 21.7 L (25.0-35.0) pg MCHC 30.4 L (31.0-37.0) g/dL Neutrophils # 15.9 H (1.3-7.7) k/uL Monocytes # 1.1 H (0-1.0) k/uL PT (9.0-12.0) sec INR (<1.2) Chloride (98-107) mmol/L BUN 22 H (9-20) mg/dL Glucose 181 H (74-99) mg/dL POC Glucose (mg/dL) (75-99) mg/dL Plasma Lactic Acid Tha 2.8 H* (0.7-2.0) mmol/L Calcium 10.3 H (8.4-10.2) mg/dL Alkaline Phosphatase 163 H (38-126) U/L Total Protein (6.3-8.2) g/dL Albumin (3.5-5.0) g/dL Urine Protein (Negative) Urine Ketones (Negative) Urine Blood (Negative) Ur Leukocyte Esterase (Negative) Urine RBC (0-5) /hpf Urine Bacteria (None) /hpf Hyaline Casts (0-2) /lpf Urine Mucus (None) /hpf 04/04/19 04/04/19 04/05/19 Range/Units 12:19 21:22 06:28 WBC (3.8-10.6) k/uL RBC (4.30-5.90) m/uL Hgb 11.0 L (13.0-17.5) gm/dL Hct 36.1 L (39.0-53.0) % MCV 71.8 L (80.0-100.0) fL MCH 21.9 L (25.0-35.0) pg MCHC 30.5 L (31.0-37.0) g/dL Neutrophils # 7.9 H (1.3-7.7) k/uL Monocytes # (0-1.0) k/uL PT (9.0-12.0) sec INR (<1.2) Chloride (98-107) mmol/L BUN (9-20) mg/dL Glucose (74-99) mg/dL POC Glucose (mg/dL) 145 H (75-99) mg/dL Plasma Lactic Acid Tha (0.7-2.0) mmol/L Calcium (8.4-10.2) mg/dL Alkaline Phosphatase (38-126) U/L Total Protein (6.3-8.2) g/dL Albumin (3.5-5.0) g/dL Urine Protein 1+ H (Negative) Urine Ketones Trace H (Negative) Urine Blood Small H (Negative) Ur Leukocyte Esterase Trace H (Negative) Urine RBC 53 H (0-5) /hpf Urine Bacteria Rare H (None) /hpf Hyaline Casts 16 H (0-2) /lpf Urine Mucus Few H (None) /hpf 04/05/19 04/05/19 Range/Units 06:28 06:28 WBC (3.8-10.6) k/uL RBC (4.30-5.90) m/uL Hgb (13.0-17.5) gm/dL Hct (39.0-53.0) % MCV (80.0-100.0) fL MCH (25.0-35.0) pg MCHC (31.0-37.0) g/dL Neutrophils # (1.3-7.7) k/uL Monocytes # (0-1.0) k/uL PT 13.6 H (9.0-12.0) sec INR 1.3 H (<1.2) Chloride 111 H (98-107) mmol/L BUN 24 H (9-20) mg/dL Glucose 118 H (74-99) mg/dL POC Glucose (mg/dL) (75-99) mg/dL Plasma Lactic Acid Tha (0.7-2.0) mmol/L Calcium (8.4-10.2) mg/dL Alkaline Phosphatase (38-126) U/L Total Protein 4.8 L (6.3-8.2) g/dL Albumin 2.8 L (3.5-5.0) g/dL Urine Protein (Negative) Urine Ketones (Negative) Urine Blood (Negative) Ur Leukocyte Esterase (Negative) Urine RBC (0-5) /hpf Urine Bacteria (None) /hpf Hyaline Casts (0-2) /lpf Urine Mucus (None) /hpf CT scan - abdomen: report reviewed CT scan - pelvis: report reviewed Assessment and Plan (1) Bowel obstruction Narrative/Plan: Plans for surgery today. Current Visit: Yes Status: Acute Priority: High Code(s): K56.609 - UNSP INTESTNL OBST, UNSP TO PARTIAL VERSUS COMPLETE OBST SNOMED Code(s): 8 9068285 (2) Colonic mass Narrative/Plan: Dr. Watkins reviewed with patient and his concerns for the colon mass and lesions in the liver. The clinical picture is most consistent with a metastatic malignant process. Due to the obstruction surgery is absolutely necessary, case discussed with Surgeon. Treatment for metastatic colon cancer could not be considered until patient has completely recovered from surgical procedure, typically 4-6 weeks. Pathology and tumor testing for AMPARO and MSI will be available for treatment recommendations (requisition for the same will be sent to pathology). Patient and were agreeable to follow-up in [address] Watkins. Current Visit: Yes Status: Acute Priority: High Code(s): K63.9 - DISEASE OF INTESTINE, UNSPECIFIED SNOMED Code(s): 077498552 (3) Microcytic hypochromic anemia Narrative/Plan: Most likely related to patient's gastrointestinal mass. Iron studies will be ordered. Current Visit: Yes Status: Acute Priority: Medium Code(s): D50.9 - IRON DEFICIENCY ANEMIA, UNSPECIFIED SNOMED Code(s): 67796109 (4) CLL (chronic lymphocytic leukemia) Narrative/Plan: Remote history of, current labs and WBC differential not suggestive of disease. No intervention required Current Visit: No Status: Chronic Priority: Low Code(s): C91.90 - LYMPHOID LEUKEMIA, UNSPECIFIED NOT HAVING ACHIEVED REMISSION SNOMED Code(s): 15886487 Plan: Doctor attests: I performed a history and physical examination of this patient with dictator. I developed impression and plan, agree with dictators note, doc umented as a scribe.
--- NOTE | 2019-04-05 14:32 | P.PN ---
Subjective Progress Note Date: 04/05/19 79-year-old male one of my office patient with known for the last 7 years with past medical history of CLL, history of elevated blood pressure and BPH along with mild hyperlipidemia who has been doing well was moved to [facility] few years ago used to see all primary care and health care provider down at [facility]. Patient called this morning complaining of intractable pain with nausea for the last few days with no bowel movement become much worse symptoms located in the right lower quadrant area was instructed to bring him to the emergency department where was seen and evaluated at [facility] surprisingly abdominal CT came back with large mass in the right side with metastasis looks like stage IV colon cancer. Review his last colonoscopy from 2015 was negative for any polyp colitis or finding at the time. Patient also is going through bowel obstruction NG tube was inserted patient was seen general surgery in consultation with his temperature been elevated patient was started on Zosyn and Levaquin pain management IV fluid resuscitation and will be admitted to the hospital for the above problem. 04/05: Patient is scheduled for a right colectomy this afternoon with Dr. Romo. Patient inadvertently pulled out NG tube this morning. Pain is currently controlled. He has been maintained on Dilaudid as needed. He is currently on Levaquin and Zosyn. Patient has been afebrile, heart rate 107, blood pressure 113/54, pulse ox 95-98% on room air. Review of Systems CONSTITUTIONAL: Well-developed no acute respiratory distress. Denies fever, denies chills. EYES: No icterus sclerae, no conjunctivitis. EARS, NOSE, MOUTH, THROAT, and FACE: No sore throat, lymphadenopathy, carotid bruits or deformity. RESPIRATORY: No SOB cough or wheezes. CARDIOVASCULAR: No CP, Palpitation, PND, Orthopnea, or angina. GASTROINTESTINAL: abdominal pain with nausea vomiting distention and mass in the right colon area. GENITOURINARY: Negative for Hematuria or UTI, no kidney stones. INTEGUMENT/BREAST: Negative for any muscular injury with mild osteoarthritis.. HEMATOLOGIC/LYMPHATIC: history of CLL, mass was found today in the right MUSCULOSKELTAL: Negative for Myalgia or arthralgia. NEURLOGICAL: No LOC, Sz or syncope, blurred vision dizziness or abnormality.. BEHAVIORAL/PSYCH: Negative. ENDOCRINE: Negative. Objective - Vital Signs Vital signs: Vital Signs Temp 98.5 F 04/05/19 08:33 Pulse 107 H 04/05/19 08:33 Resp 95 H 04/05/19 08:33 BP 113/54 04/05/19 08:33 Pulse Ox 95 04/05/19 05:21 Intake & Output 04/04/19 04/05/19 04/05/19 18:59 06:59 18:59 Intake Total 940 Output Total 350 Balance 590 Weight 74.389 kg 74.389 kg Intake: Intake, IV Titration 940 Amount Piperacillin-Tazobactam 3 100 .375 gm In Sodium Chloride 0.9% 100 ml @ 25 mls/hr IVPB Q8HR [facility] Rx# :[id number] Sodium Chloride 0.9% 1, 840 000 ml @ 120 mls/hr IV . Q8H20M [facility] Rx#:[id number] Output: Gastric Drainage 350 Other: Voiding Method Toilet # Voids 1 # Bowel Movements 1 - Exam General Appearance: Alert, cooperative, no distress, appears stated age. Patient's is at bedside. Neck HEENT: Supple, no lymphadenopathy, no thyroid enlargement, no carotid bruits. Lungs: Clear to auscultation without crackles or wheezes no rhonchi, no deformity. Chest Wall: Chest wall normal expansion with deep inspiration no tenderness and no deformity was found on exam, no costochondral pain or discomfort. Heart: Regular rate and rhythm, S1, S2 normal, no murmur, rub or gallop. Back: Symmetric, no curvature, ROM normal, no CVA tenderness. Abdomen: distended with quite bit tenderness and discomfort in the right lower quadrant area with mid epigastric discomfort as well not able to feel any lymph node in the groin area at this point. Extremities: Extremities normal, atraumatic, no cyanosis or edema. Pulses: 2+ and symmetric. Skin: Skin color, texture, tugor normal, no rashes or lesions. Neurologic: Alert oriented x3 cranial nerves II through XII intact, no motor deficit, no abnormal balance or gait. - Labs CBC & Chem 7: 04/05/19 06:28 04/05/19 06:28 Labs: Abnormal Lab Results - Last 24 Hours (Table) 04/04/19 04/04/19 04/05/19 Range/Units 12:19 21:22 06:28 Hgb 11.0 L (13.0-17.5) gm/dL Hct 36.1 L (39.0-53.0) % MCV 71.8 L (80.0-100.0) fL MCH 21.9 L (25.0-35.0) pg MCHC 30.5 L (31.0-37.0) g/dL Neutrophils # 7.9 H (1.3-7.7) k/uL PT (9.0-12.0) sec INR (<1.2) Chloride (98-107) mmol/L BUN (9-20) mg/dL Glucose (74-99) mg/dL POC Glucose (mg/dL) 145 H (75-99) mg/dL Total Protein (6.3-8.2) g/dL Albumin (3.5-5.0) g/dL Urine Protein 1+ H (Negative) Urine Ketones Trace H (Negative) Urine Blood Small H (Negative) Ur Leukocyte Esterase Trace H (Negative) Urine RBC 53 H (0-5) /hpf Urine Bacteria Rare H (None) /hpf Hyaline Casts 16 H (0-2) /lpf Urine Mucus Few H (None) /hpf 04/05/19 04/05/19 Range/Units 06:28 06:28 Hgb (13.0-17.5) gm/dL Hct (39.0-53.0) % MCV (80.0-100.0) fL MCH (25.0-35.0) pg MCHC (31.0-37.0) g/dL Neutrophils # (1.3-7.7) k/uL PT 13.6 H (9.0-12.0) sec INR 1.3 H (<1.2) Chloride 111 H (98-107) mmol/L BUN 24 H (9-20) mg/dL Glucose 118 H (74-99) mg/dL POC Glucose (mg/dL) (75-99) mg/dL Total Protein 4.8 L (6.3-8.2) g/dL Albumin 2.8 L (3.5-5.0) g/dL Urine Protein (Negative) Urine Ketones (Negative) Urine Blood (Negative) Ur Leukocyte Esterase (Negative) Urine RBC (0-5) /hpf Urine Bacteria (None) /hpf Hyaline Casts (0-2) /lpf Urine Mucus (None) /hpf Assessment and Plan Plan: 1 severe intractable abdominal pain: Secondary to bowel obstruction from large right-sided colon cancer. Patient has been seen by Dr. Romo with plan for right colectomy this afternoon. Continue Dilaudid for pain, Zofran for nausea. 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 3 large right-sided colon cancer or mass: seen general surgery [facility], further lab and oncology consultation. 4 history of CLL: Has been in remission. 5 fever or chills and possible infectious colitis beside obstruction, with a concern about any early perforation and very toenail irritation patient was started on Zosyn and Levaquin. 6 BPH: Watch for any urinary retention. 7 GI prophylaxis: Patient will be on pantoprazole 40 mg daily. 8 DVT prophylaxis: Patient will be on heparin 5000 units subcutaneous twice a day. CODE STATUS: Full code. Discharge plan: Home, possible subacute rehab Impression and plan of care have been directed as dictated by the signing physician. Dorina Ortega nurse practitioner acting as scribe for signing physician.
[2019-04-05] MEDS ORDERED: LEVOFLOXACIN 500MG-D5W PMX 500 MG in DEXTROSE/WATER 1 100ML.BAG IVPB SCH (15:00)
[2019-04-05] MEDS ORDERED: IV FLUID CONTINUATION 1,000 ML IV ONE ×2 (15:01)
[2019-04-05] MEDS ORDERED: ceFAZolin IN SWFI 2 GM/20 ML SYRINGE IVP ONE (15:43)
[2019-04-05] MEDS ORDERED: fentaNYL (PF) 50 MCG/ML 2 ML AMP IVP ONE (15:44)
[2019-04-05] MEDS ORDERED: MIDAZOLAM (PF) 2 MG/2 ML VIAL IVP ONE (15:44)
[2019-04-05] MEDS ORDERED: MIDAZOLAM 2 MG/2 ML VIAL ONE (16:11)
[2019-04-05] MEDS ORDERED: ROCURONIUM BROMIDE 10 MG/ML 10 ML VIAL IV ONE (16:11)
[2019-04-05] MEDS ORDERED: NEOSTIGMINE 1 MG/ML 10 ML VIAL ONE (16:11)
[2019-04-05] MEDS ORDERED: LIDOCAINE 1% INJ 10MG/ML (20 ML MDV) ONE (16:11)
[2019-04-05] MEDS ORDERED: fentaNYL (PF) 50 MCG/ML 2 ML AMP ONE (16:11)
[2019-04-05] MEDS ORDERED: PROPOFOL 10 MG/ML 20 ML VIAL IV ONE (16:11)
[2019-04-05] MEDS ORDERED: GLYCOPYRROLATE 0.2 MG/ML 2 ML VIAL ONE (16:11)
[2019-04-05] MEDS ORDERED: SUCCINYLCHOLINE CHLORIDE 100 MG/5 ML SYR IV ONE (16:11)
[2019-04-05] MEDS: ONDANSETRON 4 MG/2 ML VIAL IVP PRN (16:13)
[2019-04-05] MEDS ORDERED: NALOXONE 0.4 MG/ML 1 ML VIAL IV PRN ×2 (16:14→17:32)
[2019-04-05] MEDS ORDERED: LACTATED RINGERS 1,000 ML IV ONE ×3 (16:49→17:32)
[2019-04-05] MEDS ORDERED: ACETAMINOPHEN TAB 325 MG TAB PO PRN (17:32)
--- NOTE | 2019-04-05 17:32 | P.OP ---
Date of Procedure: 04/05/19 Preoperative Diagnosis: Obstructing right colon cancer Postoperative Diagnosis: Obstructing right colon cancer with metastases to liver Procedure(s) Performed: Right colectomy Partial omentectomy Anesthesia: JULIETTE Surgeon: Arsen Romo Estimated Blood Loss (ml): 100 Pathology: other (Right colon, duodenal biopsy) Condition: stable Disposition: ICU Description of Procedure: The patient's placed on the operative table in the supine position. He received general anesthesia. His abdomen was prepped and draped in sterile fashion. There was a large abdominal wall mass that was seen through the abdominal wall in the right lower quadrant. The skin was incised in midline. And then using a clutch cautery the subcutaneous tissues were divided. The fascia was divided midline. And then the abdomen was explored. There was ascitic fluid within the abdomen. This was aspirated. The right colon was massively dilated. There was an obstructing tumor located near the hepatic flexure. There were liver metastases palpated. At this point the right colon was mobilized by dividing the white line of Toldt and retracting the colon medially. The tumor was extending beyond the surface of the colon. The tumor was present on top of the duodenum. A biopsy of the mass on the duodenum was performed. This was sent to pathology. Once the colon was reflected medially the terminal ileum was transected with a GI stapler and then the transverse colon was transected with a GI stapler. Using the Enseal device the mesentery the bowel was divided. A [id number] functional end-to-end staple anastomosis created using the ANN and TA stapler. A 3-0 GI silk sutures using a crotch stitch. The omentum was examined a portion of omentum was sent to pathology. This was divided using the Enseal device. The abdomen was irrigated there is no bleeding seen. The fascia was closed in looped #1 PDS suture. Skin was closed with elias. The prevena wound management system was placed on the skin. Patient top she will was sent to the ICU in stable condition.
[2019-04-05] MEDS: PHYSOSTIGMINE SALICYLATE 1 MG/ML 2 ML AMP IVP ONE ×2 (18:35→18:45)
--- NOTE | 2019-04-05 18:38 | XR ---
EXAMINATION TYPE: XR chest 1V portable DATE OF EXAM: 04/05/2019 COMPARISON: NONE HISTORY: Central line placement TECHNIQUE: Single frontal view of the chest is obtained. FINDINGS: There is right jugular catheter with the tip over the right atrium. No pneumothorax. There is elevated left diaphragm. There is small amount of air under the left and right diaphragm. There i s no heart failure. IMPRESSION: There is probably minimal atelectasis at the lung bases. No heart failure. No pneumothor ax. Free air under the diaphragm related to abdominal surgery today. Right colectomy surgery.
[2019-04-05] MEDS: ROPIVACAINE EPIDURAL PRN (18:57)
[2019-04-05] MEDS: HYDROMORPHONE EPIDURAL PRN (18:57)
[2019-04-05] MEDS: SODIUM CHLORIDE 0.9% EPIDURAL PRN (18:57)
[2019-04-05 19:36] LABS: Glucose,Whole Blood 144 mg/dL (75-99)
[2019-04-05] MEDS: LEVOFLOXACIN 750MG-D5W PMX 750 MG in DEXTROSE/WATER 1 150ML.BAG IVPB SCH (19:56)
[2019-04-05] MEDS: metroNIDAZOLE-NS PMX 500 MG in SALINE 1 100ML.BAG IVPB SCH (19:57)
[2019-04-05] MEDS ORDERED: SODIUM CHLORIDE 0.9% 1,000 ML IV ONE (23:22)
[2019-04-06] MEDS: metroNIDAZOLE-NS PMX 500 MG in SALINE 1 100ML.BAG IVPB SCH ×3 (00:03→16:49)
[2019-04-06] MEDS: PIPERACILLIN-TAZOBACTAM 3.375 GM in SODIUM CHLORIDE 0.9% 100 ML IVPB SCH ×3 (00:03→16:50)
[2019-04-06 04:48] LABS: Basophils % (A) 0 %; Eosinophils % (A) 0 %; HCT 29.8 % (39.0-53.0); Hypochromasia Marked; Lymphocytes # (A) 0.9 k/uL (1.0-4.8); Lymphocytes % (A) 17 %; MCH 22.7 pg (25.0-35.0); MCHC 30.7 g/dL (31.0-37.0); MCV 74.1 fL (80.0-100.0); Mean Platelet Volume 7.4; Microcytosis Slight; Monocytes # (A) 0.3 k/uL (0-1.0); Monocytes % (A) 6 %; Neutrophils % (A) 74 %; Platelet Count 209 k/uL (150-450); RBC 4.02 m/uL (4.30-5.90); RDW 14.8 % (11.5-15.5); WBC 5.4 k/uL (3.8-10.6)
[2019-04-06 04:50] LABS: HGB 9.1 gm/dL (13.0-17.5)
[2019-04-06 04:58] LABS: Albumin 1.9 g/dL (3.5-5.0); Calcium 7.5 mg/dL (8.4-10.2); Magnesium 1.6 mg/dL (1.6-2.3); Potassium 3.7 mmol/L (3.5-5.1); Total Bilirubin 1.4 mg/dL (0.2-1.3); Total Protein 3.6 g/dL (6.3-8.2)
[2019-04-06] MEDS ORDERED: Potassium Replacement Protocol 1 EACH MISC MISCELLANE PRN (05:09)
[2019-04-06] MEDS ORDERED: Magnesium Replacement Protocol 1 EACH MISC MISCELLANE PRN (05:10)
[2019-04-06] MEDS: MAGNESIUM SULFATE-D5W PMX 1 GM in DEXTROSE/WATER 1 100ML.BAG IVPB SCH ×2 (05:30→06:35)
[2019-04-06] MEDS: POTASSIUM CHLORIDE 10 MEQ in WATER FOR INJECTION 1 100ML.BAG IVPB SCH ×2 (05:31→06:35)
[2019-04-06] MEDS: PANTOPRAZOLE 40 MG/10 ML VIAL IVP SCH (08:51)
[2019-04-06] MEDS: ENOXAPARIN 40 MG/0.4 ML SYRINGE SQ SCH (09:05)
--- NOTE | 2019-04-06 09:26 | P.PN ---
Progress Note - Text Progress Note Date: 04/06/19 POD 1 from ex lap. epidural running at 7cc/hr, has good analgesia. Still in ICU, awake and alert, denies any pain, any lower ext weakness, or parasthesia. site is clean and dry. matthews catheter is in place per surgical team. Has not had return of bowel function yet.
[2019-04-06] MEDS ORDERED: SODIUM CHLORIDE 0.9% 1,000 ML IV ONE ×2 (09:47→13:16)
--- NOTE | 2019-04-06 12:12 | P.PN ---
Subjective Progress Note Date: 04/06/19 CHIEF COMPLAINT: Colonic obstruction HISTORY OF PRESENT ILLNESS: 79-year-old male who underwent right colectomy, partial omentectomy, and duodenal biopsy with Dr. Romo secondary to colon mass. POD #1. Patient examined postoperatively in the intensive care unit. Patient reports his pain is tolerable this morning. Epidural is infusing. Denies passing flatus. Denies nausea or vomiting. Saavedra catheter with josephine urine. Fluid bolus has been ordered by Dr. Montelongo. PHYSICAL EXAM: VITAL SIGNS: Reviewed. GENERAL: Well-developed in no acute distress. HEENT: No sclera icterus. Extraocular movements grossly intact. Moist buccal mucosa. Head is atraumatic, normocephalic. ABDOMEN: Mildly distended. PREVENA wound management system intact. Hypoactive bowel sounds. : Saavedra with josephine urine noted NEUROLOGIC: Alert and oriented. Cranial nerves II through XII grossly intact. ASSESSMENT: 1. Abdominal pain 2. Acute large bowel obstruction, secondary to right colonic mass PLAN: 1. Pain control. Continue epidural. DC on POD #3 2. Continue urinary catheter. Fluid bolus ordered per Dr. Montelongo 3. Incentive spirometry 4. Activity as tolerated 5. Await pathology report 6. NPO until patient begins passing flatus Nurse practitioner note has been reviewed by physician. Signing provider agrees with the documented findings, assessment, and plan of care. Objective - Vital Signs Vital signs: Vital Signs Temp 98.5 F 04/06/19 08:30 Pulse 99 04/06/19 11:00 Resp 16 04/06/19 11:00 BP 101/54 04/06/19 11:00 Pulse Ox 96 04/06/19 11:00 Intake & Output 04/05/19 04/06/19 04/06/19 18:59 06:59 18:59 Intake Total 1800.18 3600 1900 Output Total 155 340 80 Balance 1645.18 3260 1820 Weight 74.389 kg 80.2 kg Intake: IV 1800.18 2800 1900 Lactated Ringers 1,000 ml 1200 600 @ 150 mls/hr IV .Q6H40M [facility] Rx#:[id number] Magnesium Sulfate-D5w Pmx 200 1 gm In Dextrose/Water 1 100ml.bag @ 100 mls/hr IVPB Q1H [facility] Rx#: [id number] Piperacillin-Tazobactam 3 100 100 .375 gm In Sodium Chloride 0.9% 100 ml @ 25 mls/hr IVPB Q8HR [facility] Rx# :[id number] Potassium Chloride 10 meq 200 100 In Water For Injection 1 100ml.bag @ 100 mls/hr IVPB Q1H [facility] Rx#: [id number] Sodium Chloride 0.9% 1, 1000 1000 000 ml @ 999 mls/hr IV . Q1H1M [facility] Rx#:[id number] metroNIDAZOLE-NS PMX 500 100 100 mg In Saline 1 100ml.bag @ 100 mls/hr IVPB Q8HR [facility] Rx#:[id number] Intake, IV Titration 800 Amount Lactated Ringers 1,000 ml 450 @ 150 mls/hr IV .Q6H40M [facility] Rx#:[id number] Levofloxacin 750Mg-D5w 150 Pmx 750 mg In Dextrose/ Water 1 150ml.bag @ 100 mls/hr IVPB Q24H [facility] Rx#: [id number] Piperacillin-Tazobactam 3 100 .375 gm In Sodium Chloride 0.9% 100 ml @ 25 mls/hr IVPB Q8HR [facility] Rx# :[id number] metroNIDAZOLE-NS PMX 500 100 mg In Saline 1 100ml.bag @ 100 mls/hr IVPB Q8HR [facility] Rx#:[id number] Oral 0 Output: Urine 130 340 80 Estimated Blood Loss 25 Other: Voiding Method Indwelling Catheter # Voids 3 - Labs CBC & Chem 7: 04/06/19 04:30 04/06/19 04:30 Labs: Abnormal Lab Results - Last 24 Hours (Table) 04/05/19 04/06/19 04/06/19 Range/Units 19:25 04:30 04:30 RBC 4.02 L (4.30-5.90) m/uL Hgb 9.1 L D (13.0-17.5) gm/dL Hct 29.8 L (39.0-53.0) % MCV 74.1 L (80.0-100.0) fL MCH 22.7 L (25.0-35.0) pg MCHC 30.7 L (31.0-37.0) g/dL Lymphocytes # 0.9 L (1.0-4.8) k/uL Chloride 114 H (98-107) mmol/L BUN 23 H (9-20) mg/dL POC Glucose (mg/dL) 144 H (75-99) mg/dL Calcium 7.5 L (8.4-10.2) mg/dL Total Bilirubin 1.4 H (0.2-1.3) mg/dL Total Protein 3.6 L (6.3-8.2) g/dL Albumin 1.9 L (3.5-5.0) g/dL Microbiology - Last 24 Hours (Table) 04/04/19 12:00 Blood Culture - Preliminary Blood No Growth after 24 hours
--- NOTE | 2019-04-06 15:35 | P.PN ---
Subjective Progress Note Date: 04/06/19 79-year-old male one of my office patient with known for the last 7 years with past medical history of CLL, history of elevated blood pressure and BPH along with mild hyperlipidemia who has been doing well was moved to [facility] few years ago used to see all primary care and health care provider down at [facility]. Patient called this morning complaining of intractable pain with nausea for the last few days with no bowel movement become much worse symptoms located in the right lower quadrant area was instructed to bring him to the emergency department where was seen and evaluated at [facility] surprisingly abdominal CT came back with large mass in the right side with metastasis looks like stage IV colon cancer. Review his last colonoscopy from 2015 was negative for any polyp colitis or finding at the time. Patient also is going through bowel obstruction NG tube was inserted patient was seen general surgery in consultation with his temperature been elevated patient was started on Zosyn and Levaquin pain management IV fluid resuscitation and will be admitted to the hospital for the above problem. 04/05: Patient is scheduled for a right colectomy this afternoon with Dr. Romo. Patient inadvertently pulled out NG tube this morning. Pain is currently controlled. He has been maintained on Dilaudid as needed. He is currently on Levaquin and Zosyn. Patient has been afebrile, heart rate 107, blood pressure 113/54, pulse ox 95-98% on room air. 04/06: Patient is status post right colectomy and partial omentectomy completed yesterday by Dr. Romo. He is currently on Levaquin and Flagyl and a consult in place with Dr. Nixon. Patient was transferred to the intensive care unit and is followed by Dr. Montelongo for intensive care management. No NG tube in place. He denies any nausea or vomiting. Pain is currently controlled. Epidural is in place. Saavedra catheter remains in place. Temperature max 100.1, heart rate 100, blood pressure 101/60, pulse ox 96% on 2 L. White count is 5.4 and hemoglobin 9.1. Review of Systems CONSTITUTIONAL: Well-developed no acute respiratory distress. Denies fever, denies chills. EYES: No icterus sclerae, no conjunctivitis. EARS, NOSE, MOUTH, THROAT, and FACE: No sore throat, lymphadenopathy, carotid bruits or deformity. RESPIRATORY: No SOB cough or wheezes. CARDIOVASCULAR: No CP, Palpitation, PND, Orthopnea, or angina. GASTROINTESTINAL: abdominal pain controlled, no nausea vomiting. GENITOURINARY: Negative for Hematuria or UTI, no kidney stones. Saavedra in place INTEGUMENT/BREAST: Negative for any muscular injury with mild osteoarthritis.. HEMATOLOGIC/LYMPHATIC: history of CLL, mass was found today in the right MUSCULOSKELTAL: Negative for Myalgia or arthralgia. NEURLOGICAL: No LOC, Sz or syncope, blurred vision dizziness or abnormality. BEHAVIORAL/PSYCH: Negative. ENDOCRINE: Negative. Objective - Vital Signs Vital signs: Vital Signs Temp 100.1 F H 04/06/19 04:00 Pulse 102 H 04/06/19 07:00 Resp 12 04/06/19 07:00 BP 92/52 04/06/19 07:00 Pulse Ox 95 04/06/19 07:00 Intake & Output 04/05/19 04/06/19 04/06/19 18:59 06:59 18:59 Intake Total 1800.18 3600 Output Total 155 340 Balance 1645.18 3260 Weight 74.389 kg 80.2 kg Intake: IV 1800.18 2800 Lactated Ringers 1,000 ml 1200 @ 150 mls/hr IV .Q6H40M [facility] Rx#:[id number] Magnesium Sulfate-D5w Pmx 200 1 gm In Dextrose/Water 1 100ml.bag @ 100 mls/hr IVPB Q1H [facility] Rx#: [id number] Piperacillin-Tazobactam 3 100 .375 gm In Sodium Chloride 0.9% 100 ml @ 25 mls/hr IVPB Q8HR [facility] Rx# :[id number] Potassium Chloride 10 meq 200 In Water For Injection 1 100ml.bag @ 100 mls/hr IVPB Q1H [facility] Rx#: [id number] Sodium Chloride 0.9% 1, 1000 000 ml @ 999 mls/hr IV . Q1H1M [facility] Rx#:[id number] metroNIDAZOLE-NS PMX 500 100 mg In Saline 1 100ml.bag @ 100 mls/hr IVPB Q8HR [facility] Rx#:[id number] Intake, IV Titration 800 Amount Lactated Ringers 1,000 ml 450 @ 150 mls/hr IV .Q6H40M [facility] Rx#:[id number] Levofloxacin 750Mg-D5w 150 Pmx 750 mg In Dextrose/ Water 1 150ml.bag @ 100 mls/hr IVPB Q24H [facility] Rx#: [id number] Piperacillin-Tazobactam 3 100 .375 gm In Sodium Chloride 0.9% 100 ml @ 25 mls/hr IVPB Q8HR [facility] Rx# :[id number] metroNIDAZOLE-NS PMX 500 100 mg In Saline 1 100ml.bag @ 100 mls/hr IVPB Q8HR [facility] Rx#:[id number] Oral 0 Output: Urine 130 340 Estimated Blood Loss 25 Other: Voiding Method Indwelling Catheter # Voids 3 - Exam General Appearance: Alert, cooperative, no distress, appears stated age. Patient's is at bedside. Neck HEENT: Supple, no lymphadenopathy, no thyroid enlargement, no carotid bruits. Lungs: Clear to auscultation without crackles or wheezes no rhonchi, no deformity. Chest Wall: Chest wall normal expansion with deep inspiration no tenderness and no deformity was found on exam, no costochondral pain or discomfort. Heart: Regular rate and rhythm, S1, S2 normal, no murmur, rub or gallop. Back: Symmetric, no curvature, ROM normal, no CVA tenderness. Abdomen: Wound VAC and abdominal binder in place. Extremities: Extremities normal, atraumatic, no cyanosis or edema. Pulses: 2+ and symmetric. Skin: Skin color, texture, tugor normal, no rashes or lesions. Neurologic: Alert oriented x3 cranial nerves II through XII intact, no motor deficit, no abnormal balance or gait. - Labs CBC & Chem 7: 04/06/19 04:30 04/06/19 04:30 Labs: Abnormal Lab Results - Last 24 Hours (Table) 04/05/19 04/06/19 04/06/19 Range/Units 19:25 04:30 04:30 RBC 4.02 L (4.30-5.90) m/uL Hgb 9.1 L D (13.0-17.5) gm/dL Hct 29.8 L (39.0-53.0) % MCV 74.1 L (80.0-100.0) fL MCH 22.7 L (25.0-35.0) pg MCHC 30.7 L (31.0-37.0) g/dL Lymphocytes # 0.9 L (1.0-4.8) k/uL Chloride 114 H (98-107) mmol/L BUN 23 H (9-20) mg/dL POC Glucose (mg/dL) 144 H (75-99) mg/dL Calcium 7.5 L (8.4-10.2) mg/dL Total Bilirubin 1.4 H (0.2-1.3) mg/dL Total Protein 3.6 L (6.3-8.2) g/dL Albumin 1.9 L (3.5-5.0) g/dL Microbiology - Last 24 Hours (Table) 04/04/19 12:00 Blood Culture - Preliminary Blood No Growth after 24 hours Assessment and Plan Plan: 1 severe intractable abdominal pain: Secondary to bowel obstruction from large right-sided colon cancer. Patient has been seen by Dr. Romo status post right colectomy. Continue epidural for pain, Zofran for nausea. 2 acute bowel obstruction: Secondary to large colon cancer in the right side. 3 large right-sided colon cancer or mass: seen general surgery [facility], further lab and oncology consultation. 4 history of CLL: Has been in remission. 5 fever or chills and possible infectious colitis beside obstruction, with a concern about any early perforation and very toenail irritation patient was started on Flagyl and Levaquin. Consult with Dr. Nixon in place. 6 BPH: Watch for any urinary retention. 7 GI prophylaxis: Patient will be on pantoprazole 40 mg daily. 8 DVT prophylaxis: Patient will be on heparin 5000 units subcutaneous twice a day. CODE STATUS: Full code. Discharge plan: Home, possible subacute rehab Impression and plan of care have been directed as dictated by the signing physician. Dorina Ortega nurse practitioner acting as scribe for signing andrey brewer.
--- NOTE | 2019-04-06 17:33 | P.CNPUL ---
History of Present Illness Consult date: 04/06/19 Chief complaint: Acute bowel obstruction History of present illness: This is a 79-year-old male patient who came in for a bowel obstruction. The patient had a colonoscopy back in 2059 that was negative. A CAT scan of the abdomen was done and it showed a large right colonic mass with marked dilatation of the cecum and small bowel compatible with high-grade obstruction. This was suggested of malignancy. The patient also had numerous hepatic lesions suggestive of metastases and there was evidence of retroperitoneal lymphadenopathy. The patient was taken to the operating room and the patient underwent a right colectomy with primary anastomosis. Postop, the patient was extubated in the operating room. A triple lumen catheter was inserted in the right IJ. Following that the patient was moved to the intensive care unit. Currently has a epidural catheter with bupivacaine and Dilaudid for pain control. His excellent pain control for now. He is on accommodation of Levaquin and Flagyl. He is afebrile. No abdominal pain. Surgical wound site is clean and the patient has a provana wound VAC in place. No altered mentation. He is using incentive spirometer. On 2 L of oxygen by nasal cannula. No respiratory distress. No cough or sputum production. No aspiration. No flatus. No bowel movement with activity for now. Review of Systems Constitutional: Reports fatigue, Reports poor appetite, Reports weight loss Eyes: denies blurred vision, denies bulging eye, denies decreased vision Ears: deny: decreased hearing, ear discharge, earache, tinnitus Ears, nose, mouth and throat: Denies headache, Denies sore throat Breasts: absent: as per HPI, gynecomastia Respiratory: Reports as per HPI Gastrointestinal: Reports abdominal pain, Reports change in bowel habits, Reports constipation, Reports loss of appetite Genitourinary: Reports as per HPI Musculoskeletal: Reports as per HPI Musculoskeletal: absent: ankle pain, ankle stiffness, ankle swelling Integumentary: Reports as per HPI Neurological: Reports as per HPI Psychiatric: Reports as per HPI Endocrine: Reports as per HPI Hematologic/Lymphatic: Reports as per HPI Allergic/Immunologic: Reports as per HPI Past Medical History Past Medical History: Cancer, Hyperlipidemia, Hypertension Additional Past Medical History / Comment(s): hx of CLL, DX 2000, follows up at [facility], seasonal allergies, hx polyps, hx hemorrhoids History of Any Multi-Drug Resistant Organisms: None Reported Past Surgical History: Hernia Repair, Tonsillectomy Additional Past Surgical History / Comment(s): colonoscopy, vasectomy, polypect carol Past Anesthesia/Blood Transfusion Reactions: No Reported Reaction Past Psychological History: No Psychological Hx Reported Smoking Status: Former smoker Past Alcohol Use History: None Reported Additional Past Alcohol Use History / Comment(s): started smoking age 34, (1972) quit 1980, Past Drug Use History: None Reported - Past Family History Mother Family Medical History: Cancer Additional Family Medical History / Comment(s): breast Son(s) Family Medical History: Cancer, Coronary Artery Disease (CAD), Myocardial Infarction ([place]) Additional Family Medical History / Comment(s): non hodgkins lymphoma, Medications and Allergies Home Medications Medication Instructions Recorded Confirmed Type Ascorbic Acid [Vitamin C] 500 mg PO DAILY@1200 03/02/16 04/04/19 History Aspirin [Adult Low Dose Aspirin EC] 81 mg PO Q7DAYS 03/02/16 04/04/19 History Multivitamins, Thera [Multivitamin] 1 tab PO DAILY@1200 03/02/16 04/04/19 History Bifidobacterium Infantis [Align] 4 mg PO HS 04/04/19 04/04/19 History Allergies Allergy/AdvReac Type Severity Reaction Status Date / Time Penicillins Allergy Swelling Verified 04/04/19 22:30 Sulfa (Sulfonamide Allergy Rash/Hives Verified 04/04/19 10:08 Antibiotics) Physical Exam Vitals: Vital Signs Temp Pulse Pulse Resp BP BP Pulse Ox 04/06/19 13:00 105 H 13 112/65 96 04/06/19 12:30 101 H 13 112/65 96 04/06/19 12:00 98.6 F 101 H 13 97/51 04/06/19 11:30 98 16 97/51 97 04/06/19 11:00 99 16 101/54 96 04/06/19 10:30 102 H 16 101/54 95 04/06/19 10:00 105 H 14 111/57 97 04/06/19 09:30 98 13 111/57 96 04/06/19 09:00 100 18 101/60 96 04/06/19 08:30 98.5 F 100 15 101/60 96 04/06/19 08:00 101 H 13 100/57 95 04/06/19 07:56 95 04/06/19 07:00 102 H 12 92/52 95 04/06/19 06:30 101 H 15 96 04/06/19 06:00 100 18 91/53 95 04/06/19 05:30 100 16 97 04/06/19 05:00 101 H 12 106/62 96 04/06/19 04:30 100 15 96 04/06/19 04:00 100.1 F H 104 H 15 93/52 97 04/06/19 03:30 101 H 16 97 04/06/19 03:00 106 H 15 97/50 96 04/06/19 02:30 103 H 14 97 04/06/19 02:00 107 H 17 93/52 96 04/06/19 01:30 106 H 16 96 04/06/19 01:00 109 H 10 L 103/58 96 04/06/19 00:30 108 H 15 85/50 97 04/06/19 00:09 109 H 20 92/51 96 04/06/19 00:00 98.9 F 106 H 16 94/56 97 04/05/19 23:30 108 H 16 84/55 97 04/05/19 23:00 104 H 16 85/53 97 04/05/19 22:30 105 H 15 85/53 97 04/05/19 22:00 109 H 18 94/62 96 04/05/19 21:30 113 H 20 96 04/05/19 21:00 113 H 18 114/62 96 04/05/19 20:30 112 H 19 114/62 96 04/05/19 20:00 110 H 9 L 119/67 95 04/05/19 19:30 124 H 17 126/67 04/05/19 19:28 125 H 19 126/67 04/05/19 19:00 121 H 16 124/72 100 04/05/19 18:45 127 H 16 144/77 100 04/05/19 18:30 126 H 16 149/76 99 04/05/19 18:15 124 H 16 143/73 100 04/05/19 17:58 98.1 F 110 H 14 145/62 97 Intake and Output 04/06/19 04/06/19 04/06/19 06:59 14:59 22:59 Intake Total 2800 2200 Output Total 205 140 Balance 2595 2060 Intake: IV 2800 2200 Lactated Ringers 1,000 ml 1200 900 @ 150 mls/hr IV .Q6H40M ONE Rx#:[id number] Magnesium Sulfate-D5w Pmx 200 1 gm In Dextrose/Water 1 100ml.bag @ 100 mls/hr IVPB Q1H [facility] Rx#: [id number] Piperacillin-Tazobactam 3 100 100 .375 gm In Sodium Chloride 0.9% 100 ml @ 25 mls/hr IVPB Q8HR [facility] Rx# :[id number] Potassium Chloride 10 meq 200 100 In Water For Injection 1 100ml.bag @ 100 mls/hr IVPB Q1H [facility] Rx#: [id number] Sodium Chloride 0.9% 1, 1000 1000 000 ml @ 999 mls/hr IV . Q1H1M [facility] Rx#:[id number] metroNIDAZOLE-NS PMX 500 100 100 mg In Saline 1 100ml.bag @ 100 mls/hr IVPB Q8HR [facility] Rx#:[id number] Oral 0 Output: Urine 205 140 Other: Voiding Method Indwelling Catheter Weight 80.2 kg Gen. appearance the patient is calm and comfortable well-developed nonacute distress Head exam was generally normal. There was no scleral icterus or corneal arcus. Mucous membranes were moist. Neck was supple and without jugular venous distension, thyromegaly, or carotid bruits. Carotids were easily palpable bilaterally. There was no adenopathy. Lungs were clear to auscultation and percussion, and with normal diaphragmatic excursion. No wheezes or rales were noted. Cardiac exam revealed the PMI to be normally situated and sized. The rhythm was regular and no extrasystoles were noted during several minutes of auscultation. The first and second heart sounds were normal and physiologic splitting of the second heart sound was noted. There were no murmurs, rubs, clicks, or gallops. Abdomen is soft. Incision is dry clean and intact. Bowel sounds are absent. No direct tenderness rebound tensile guarding. No ascites. No organomegaly. Examination of the extremities revealed easily palpable radial, femoral and pedal pulses. There was no cyanosis, clubbing or edema. Examination of the skin revealed no evidence of significant rashes, suspicious appearing nevi or other concerning lesions. Neurologically is awake and alert and there is no focal neurological deficit. Results - Laboratory Findings CBC and BMP: 04/06/19 04:30 04/06/19 04:30 PT/INR, D-dimer PT 13.6 sec (9.0-12.0) H 04/05/19 06:28 INR 1.3 (<1.2) H 04/05/19 06:28 Abnormal lab findings: Abnormal Labs 04/04/19 04/04/19 04/04/19 10:09 10:09 10:09 WBC 18.4 H RBC 6.23 H Hgb Hct MCV 71.2 L MCH 21.7 L MCHC 30.4 L Neutrophils # 15.9 H Lymphocytes # Monocytes # 1.1 H PT INR Chloride BUN 22 H Glucose 181 H POC Glucose (mg/dL) Plasma Lactic Acid Tha 2.8 H* Calcium 10.3 H Total Bilirubin Alkaline Phosphatase 163 H Total Protein Albumin Urine Protein Urine Ketones Urine Blood Ur Leukocyte Esterase Urine RBC Urine Bacteria Hyaline Casts Urine Mucus 04/04/19 04/04/19 04/05/19 12:19 21:22 06:28 WBC RBC Hgb 11.0 L Hct 36.1 L MCV 71.8 L MCH 21.9 L MCHC 30.5 L Neutrophils # 7.9 H Lymphocytes # Monocytes # PT INR Chloride BUN Glucose POC Glucose (mg/dL) 145 H Plasma Lactic Acid Tha Calcium Total Bilirubin Alkaline Phosphatase Total Protein Albumin Urine Protein 1+ H Urine Ketones Trace H Urine Blood Small H Ur Leukocyte Esterase Trace H Urine RBC 53 H Urine Bacteria Rare H Hyaline Casts 16 H Urine Mucus Few H 04/05/19 04/05/19 04/05/19 06:28 06:28 19:25 WBC RBC Hgb Hct MCV MCH MCHC Neutrophils # Lymphocytes # Monocytes # PT 13.6 H INR 1.3 H Chloride 111 H BUN 24 H Glucose 118 H POC Glucose (mg/dL) 144 H Plasma Lactic Acid Tha Calcium Total Bilirubin Alkaline Phosphatase Total Protein 4.8 L Albumin 2.8 L Urine Protein Urine Ketones Urine Blood Ur Leukocyte Esterase Urine RBC Urine Bacteria Hyaline Casts Urine Mucus 04/06/19 04/06/19 04:30 04:30 WBC RBC 4.02 L Hgb 9.1 L D Hct 29.8 L MCV 74.1 L MCH 22.7 L MCHC 30.7 L Neutrophils # Lymphocytes # 0.9 L Monocytes # PT INR Chloride 114 H BUN 23 H Glucose POC Glucose (mg/dL) Plasma Lactic Acid Tha Calcium 7.5 L Total Bilirubin 1.4 H Alkaline Phosphatase Total Protein 3.6 L Albumin 1.9 L Urine Protein Urine Ketones Urine Blood Ur Leukocyte Esterase Urine RBC Urine Bacteria Hyaline Casts Urine Mucus Assessment and Plan Plan: 1 acute large bowel obstruction with a colonic mass. The patient underwent a right hemicolectomy with primary anastomosis. The patient is postop day #1. Final pathology is pending for now. Consider colon adenocarcinoma. Consider sarcoma. Consider lymphoma nontender the patient has history of CLL. The patient has hepatic metastases based on the CAT scan findings. 2 abdominal pain secondary to above, improved 3. Chronic lymphocytic leukemia 4 hypertension 5 hyperlipidemia Plan Awaiting final pathology. Meanwhile, continue the supportive care. The patient is epidural pain control with a combination of a lot of than bupivacaine. Continue adequate pain control for now. Provide the patient incentive spirometer. The patient found to have a low urine output. His CVP was low and based on that he was given a bolus of 1 L of IV fluids. Urine output improved. He is currently reducing 30-40 mL an hour. His maintenance IV fluid is at 0.9 at 150 mL an hour. He is on DVT prophylaxis with Lovenox. He is on GI prophylaxis. He is still nothing by mouth for now. General surgeries on the case. We'll continue to follow. He'll be kept in ICU and transferred to a medical surgical floor with the next 24 hours.
[2019-04-06] MEDS: LEVOFLOXACIN 750MG-D5W PMX 750 MG in DEXTROSE/WATER 1 150ML.BAG IVPB SCH (18:00)
--- NOTE | 2019-04-06 21:42 | P.CONS ---
History of Present Illness - Reason for Consult Consult date: 04/06/19 Secondary peritonitis Requesting physician: Arsen Romo - Chief Complaint Abdominal pain x few days - History of Present Illness Patient is 79-year-old male presented to [facility] ER with chief complaints of right lower quadrant abdominal pain that apparently was getting worse or day or 2 before he presented to hospital the patient has been mostly in the right lower quadrant area though was 8 out of 10 by the time he presented to hospital has felt nauseated but no vomiting did have some sensitivity sent to the patient was evaluated by the physician patient did have a CT of abdominal pelvis with evidence of large right-sided abdominal mass lik tootie tumor with numerous hepatic masses suspicious for metastasis patient while in hospital spike a fever of 101F and did have elevated white count patient subsequently was taken to the OR yesterday by surgery the patient is status post right hemicolectomy and omentectomy the patient was noticed to have slight ischemic necrosis of the cecum from significant distention and some seropurulent drainage with concern for secondary peritonitis patient has been treated with Zosyn and infectious disease was consulted for further recommendation regarding antibiotic therapy Review of Systems Positive points has been mentioned in HPI rest of the systems negative Past Medical History Past Medical History: Cancer, Hyperlipidemia, Hypertension Additional Past Medical History / Comment(s): hx of CLL, DX 2000, follows up at [facility], seasonal allergies, hx polyps, hx hemorrhoids History of Any Multi-Drug Resistant Organisms: None Reported Past Surgical History: Hernia Repair, Tonsillectomy Additional Past Surgical History / Comment(s): colonoscopy, vasectomy, polypectomy Past Anesthesia/Blood Transfusion Reactions: No Reported Reaction Past Psychological History: No Psychological Hx Reported Smoking Status: Former smoker Past Alcohol Use History: None Reported Additional Past Alcohol Use History / Comment(s): started smoking age 34, (1972) quit 1980, Past Drug Use History: None Reported - Past Family History Mother Family Medical History: Cancer Additional Family Medical History / Comment(s): breast Son(s) Family Medical History: Cancer, Coronary Artery Disease (CAD), Myocardial Infarction ([place]) Additional Family Medical History / Comment(s): non hodgkins lymphoma, Medications and Allergies Home Medications Medication Instructions Recorded Confirmed Type Ascorbic Acid [Vitamin C] 500 mg PO DAILY@1200 03/02/16 04/04/19 History Aspirin [Adult Low Dose Aspirin EC] 81 mg PO Q7DAYS 03/02/16 04/04/19 History Multivitamins, Thera [Multivitamin] 1 tab PO DAILY@1200 03/02/16 04/04/19 History Bifidobacterium Infantis [Align] 4 mg PO HS 04/04/19 04/04/19 History Allergies Allergy/AdvReac Type Severity Reaction Status Date / Time Penicillins Allergy Swelling Verified 04/04/19 22:30 Sulfa (Sulfonamide Allergy Rash/Hives Verified 04/04/19 10:08 Antibiotics) Physical Exam Vitals: Vital Signs Temp Pulse Pulse Pulse Resp BP BP 04/06/19 11:00 99 16 101/54 04/06/19 10:30 102 H 16 101/54 04/06/19 10:00 105 H 14 111/57 04/06/19 09:30 98 13 111/57 04/06/19 09:00 100 18 101/60 04/06/19 08:30 98.5 F 100 15 101/60 04/06/19 08:00 101 H 13 100/57 04/06/19 07:56 04/06/19 07:00 102 H 12 92/52 04/06/19 06:30 101 H 15 04/06/19 06:00 100 18 91/53 04/06/19 05:30 100 16 04/06/19 05:00 101 H 12 106/62 04/06/19 04:30 100 15 04/06/19 04:00 100.1 F H 104 H 15 93/52 04/06/19 03:30 101 H 16 04/06/19 03:00 106 H 15 97/50 04/06/19 02:30 103 H 14 04/06/19 02:00 107 H 17 93/52 04/06/19 01:30 106 H 16 04/06/19 01:00 109 H 10 L 103/58 04/06/19 00:30 108 H 15 85/50 04/06/19 00:09 109 H 20 92/51 04/06/19 00:00 98.9 F 106 H 16 94/56 04/05/19 23:30 108 H 16 84/55 04/05/19 23:00 104 H 16 85/53 04/05/19 22:30 105 H 15 85/53 04/05/19 22:00 109 H 18 94/62 04/05/19 21:30 113 H 20 04/05/19 21:00 113 H 18 114/62 04/05/19 20:30 112 H 19 114/62 04/05/19 20:00 110 H 9 L 119/67 04/05/19 19:30 124 H 17 126/67 04/05/19 19:28 125 H 19 126/67 04/05/19 19:00 121 H 16 124/72 04/05/19 18:45 127 H 16 144/77 04/05/19 18:30 126 H 16 149/76 04/05/19 18:15 124 H 16 143/73 04/05/19 17:58 98.1 F 110 H 14 145/62 04/05/19 16:08 120 H 20 120/65 04/05/19 14:59 99.1 F 115 H 20 125/63 04/05/19 12:50 99.6 F 110 H 16 123/68 Pulse Ox 04/06/19 11:00 96 04/06/19 10:30 95 04/06/19 10:00 97 04/06/19 09:30 96 04/06/19 09:00 96 04/06/19 08:30 96 04/06/19 08:00 95 04/06/19 07:56 95 04/06/19 07:00 95 04/06/19 06:30 96 04/06/19 06:00 95 04/06/19 05:30 97 04/06/19 05:00 96 04/06/19 04:30 96 04/06/19 04:00 97 04/06/19 03:30 97 04/06/19 03:00 96 04/06/19 02:30 97 04/06/19 02:00 96 04/06/19 01:30 96 04/06/19 01:00 96 04/06/19 00:30 97 04/06/19 00:09 96 04/06/19 00:00 97 04/05/19 23:30 97 04/05/19 23:00 97 04/05/19 22:30 97 04/05/19 22:00 96 04/05/19 21:30 96 04/05/19 21:00 96 04/05/19 20:30 96 04/05/19 20:00 95 04/05/19 19:30 04/05/19 19:28 04/05/19 19:00 100 04/05/19 18:45 100 04/05/19 18:30 99 04/05/19 18:15 100 04/05/19 17:58 97 04/05/19 16:08 98 04/05/19 14:59 94 L 04/05/19 12:50 98 Intake and Output 04/05/19 04/06/19 04/06/19 22:59 06:59 14:59 Intake Total 2600.18 2800 1900 Output Total 290 205 80 Balance 2310.18 2595 1820 Intake: IV 1800.18 2800 1900 Lactated Ringers 1,000 ml 1200 600 @ 150 mls/hr IV .Q6H40M [facility] Rx#:[id number] Magnesium Sulfate-D5w Pmx 200 1 gm In Dextrose/Water 1 100ml.bag @ 100 mls/hr IVPB Q1H [facility] Rx#: [id number] Piperacillin-Tazobactam 3 100 100 .375 gm In Sodium Chloride 0.9% 100 ml @ 25 mls/hr IVPB Q8HR [facility] Rx# :[id number] Potassium Chloride 10 meq 200 100 In Water For Injection 1 100ml.bag @ 100 mls/hr IVPB Q1H [facility] Rx#: [id number] Sodium Chloride 0.9% 1, 1000 1000 000 ml @ 999 mls/hr IV . Q1H1M [facility] Rx#:[id number] metroNIDAZOLE-NS PMX 500 100 100 mg In Saline 1 100ml.bag @ 100 mls/hr IVPB Q8HR [facility] Rx#:[id number] Intake, IV Titration 800 Amount Lactated Ringers 1,000 ml 450 @ 150 mls/hr IV .Q6H40M [facility] Rx#:[id number] Levofloxacin 750Mg-D5w 150 Pmx 750 mg In Dextrose/ Water 1 150ml.bag @ 100 mls/hr IVPB Q24H [facility] Rx#: [id number] Piperacillin-Tazobactam 3 100 .375 gm In Sodium Chloride 0.9% 100 ml @ 25 mls/hr IVPB Q8HR [facility] Rx# :[id number] metroNIDAZOLE-NS PMX 500 100 mg In Saline 1 100ml.bag @ 100 mls/hr IVPB Q8HR [facility] Rx#:[id number] Oral 0 0 Output: Urine 265 205 80 Estimated Blood Loss 25 Other: Voiding Method Indwelling Catheter Indwelling Catheter Weight 80.2 kg General: The patient is awake and alert, in no distress. Skin: no rashes and no masses palpable. Eye: Pupils are equal, round, there is normal conjunctiva bilaterally. Ears, nose, mouth and throat: There are moist mucous membranes and no oral lesions. Neck: The neck is supple, there is no thyromegaly. Cardiovascular: S1-S2 regular rate and rhythm. No murmur. Respiratory: Unlabored breathing clear to auscultation bilaterally Gastrointestinal: Soft, non-distended, mildly tender right lower quadrant Neurological: There are no obvious motor or sensory deficits. Coordination appears grossly intact. Speech is normal. Psychiatric: Patient is awake and alert and oriented 3, appropriate mood & affect, normal judgment. Results CBC & Chem 7: 04/06/19 04:30 04/06/19 04:30 Labs: Abnormal Lab Results - Last 24 Hours (Table) 04/05/19 04/06/19 04/06/19 Range/Units 19:25 04:30 04:30 RBC 4.02 L (4.30-5.90) m/uL Hgb 9.1 L D (13.0-17.5) gm/dL Hct 29.8 L (39.0-53.0) % MCV 74.1 L (80.0-100.0) fL MCH 22.7 L (25.0-35.0) pg MCHC 30.7 L (31.0-37.0) g/dL Lymphocytes # 0.9 L (1.0-4.8) k/uL Chloride 114 H (98-107) mmol/L BUN 23 H (9-20) mg/dL POC Glucose (mg/dL) 144 H (75-99) mg/dL Calcium 7.5 L (8.4-10.2) mg/dL Total Bilirubin 1.4 H (0.2-1.3) mg/dL Total Protein 3.6 L (6.3-8.2) g/dL Albumin 1.9 L (3.5-5.0) g/dL Microbiology - Last 24 Hours (Table) 04/04/19 12:00 Blood Culture - Preliminary Blood No Growth after 24 hours Assessment and Plan Assessment: 1-patient presented to hospital with abdominal pain in this patient who did have features of sepsis with fever tachycardia and elevated white count source is likely secondary peritonitis as a result of extensive distention of the cecum with necrosis and seropurulent drainage will need to cover for enteric gram- negative both aerobes and anaerobes. 2-patient with a history of penicillin ALLERGY as a child however has tolerated Zosyn for the last 2-3 days clinically doubt true penicillin ALLERGY and should be taken off the chart (1) Sepsis Current Visit: Yes Status: Acute Code(s): A41.9 - SEPSIS, UNSPECIFIED ORGANISM SNOMED Code(s): 04439361 Plan: 1-the patient will be treated with Zosyn 3.375 gm every 8 hours 2-gentle IV fluid We'll follow on clinical condition and culture to further adjust medication if needed Thank you for this consultation will follow this patient along with you Time with Patient: Greater than 30
[2019-04-07] MEDS: PIPERACILLIN-TAZOBACTAM 3.375 GM in SODIUM CHLORIDE 0.9% 100 ML IVPB SCH ×4 (00:34→23:52)
[2019-04-07] MEDS: metroNIDAZOLE-NS PMX 500 MG in SALINE 1 100ML.BAG IVPB SCH ×2 (01:21→08:36)
[2019-04-07] MEDS: HYDROMORPHONE EPIDURAL PRN (03:02)
[2019-04-07] MEDS: SODIUM CHLORIDE 0.9% EPIDURAL PRN (03:02)
[2019-04-07] MEDS: ROPIVACAINE EPIDURAL PRN (03:02)
[2019-04-07 05:19] LABS: HGB 8.1 gm/dL (13.0-17.5); Hypochromasia Marked; MCH 21.9 pg (25.0-35.0); MCHC 30.1 g/dL (31.0-37.0); MCV 72.7 fL (80.0-100.0); Mean Platelet Volume 6.9; Microcytosis Moderate; Platelet Count 219 k/uL (150-450); RBC 3.72 m/uL (4.30-5.90); RDW 15.3 % (11.5-15.5); WBC 4.8 k/uL (3.8-10.6)
[2019-04-07 05:35] LABS: ALT 23 U/L (21-72); AST 26 U/L (17-59); Albumin 1.8 g/dL (3.5-5.0); Alkaline Phosphatase 65 U/L (38-126); Anion Gap 3 mmol/L; Blood Urea Nitrogen 20 mg/dL (9-20); Calcium 7.3 mg/dL (8.4-10.2); Carbon Dioxide 20 mmol/L (22-30); Chloride 118 mmol/L (98-107); Glucose 79 mg/dL (74-99); Magnesium 2.2 mg/dL (1.6-2.3); Potassium 3.7 mmol/L (3.5-5.1); Sodium 141 mmol/L (137-145); Total Bilirubin 1.6 mg/dL (0.2-1.3); Total Protein 3.4 g/dL (6.3-8.2)
[2019-04-07] MEDS ORDERED: Potassium Replacement Protocol 1 EACH MISC MISCELLANE PRN ×2 (05:40→05:59)
[2019-04-07] MEDS ORDERED: POTASSIUM CHLORIDE ER 20 MEQ TAB.ER PO SCH (06:00)
[2019-04-07] MEDS: POTASSIUM CHLORIDE 10 MEQ in WATER FOR INJECTION 1 100ML.BAG IVPB SCH ×2 (06:38→08:36)
--- NOTE | 2019-04-07 07:10 | P.PN ---
Progress Note - Text 04/07 705am 79-year-old male status post exploratory lap by Dr. Romo. Patient has a epidural catheter for postop pain control running at 8 mL an hour, with a VAS of 1 no motor or sensory deficits noted. Dressing clean dry and intact. Plan to continue epidural infusion and DC tomorrow morning
[2019-04-07] MEDS: PANTOPRAZOLE 40 MG/10 ML VIAL IVP SCH (08:38)
[2019-04-07] MEDS: ENOXAPARIN 40 MG/0.4 ML SYRINGE SQ SCH (08:39)
--- NOTE | 2019-04-07 10:23 | P.PN ---
Subjective Progress Note Date: 04/07/19 79-year-old male one of my office patient with known for the last 7 years with past medical history of CLL, history of elevated blood pressure and BPH along with mild hyperlipidemia who has been doing well was moved to [facility] few years ago used to see all primary care and health care provider down at [facility]. Patient called this morning complaining of intractable pain with nausea for the last few days with no bowel movement become much worse symptoms located in the right lower quadrant area was instructed to bring him to the emergency department where was seen and evaluated at [facility] surprisingly abdominal CT came back with large mass in the right side with metastasis looks like stage IV colon cancer. Review his last colonoscopy from 2015 was negative for any polyp colitis or finding at the time. Patient also is going through bowel obstruction NG tube was inserted patient was seen general surgery in consultation with his temperature been elevated patient was started on Zosyn and Levaquin pain management IV fluid resuscitation and will be admitted to the hospital for the above problem. 04/05: Patient is scheduled for a right colectomy this afternoon with Dr. Romo. Patient inadvertently pulled out NG tube this morning. Pain is currently controlled. He has been maintained on Dilaudid as needed. He is currently on Levaquin and Zosyn. Patient has been afebrile, heart rate 107, blood pressure 113/54, pulse ox 95-98% on room air. 04/06: Patient is status post right colectomy and partial omentectomy completed yesterday by Dr. Romo. He is currently on Levaquin and Flagyl and a consult in place with Dr. Nixon. Patient was transferred to the intensive care unit and is followed by Dr. Montelongo for intensive care management. No NG tube in place. He denies any nausea or vomiting. Pain is currently controlled. Epidural is in place. Saavedra catheter remains in place. Temperature max 100.1, heart rate 100, blood pressure 101/60, pulse ox 96% on 2 L. White count is 5.4 and hemoglobin 9.1. 04/07: Patient remains in the intensive care unit. He has been afebrile, blood pressure low this morning at 88/44, pulse ox 96% on 3 L, heart rate in 80s to 90. Repeat lab work reveals a normal white count of 4.8, hemoglobin 8.1, BUN 20 and creatinine 0.88. Albumin 1.8, chloride 118 and CO2 20. Patient has epidural catheter still in place to be discontinued this morning. Saavedra catheter remains in place Patient was seen by Dr. Nixon and antibiotics are Levaquin, Flagyl and Zosyn. Patient denies any nausea or vomiting. He states his pain is controlled. He is currently nothing by mouth. He has not had a bowel movement. No NG tube in place. He is reaching 1000 ML's on incentive spirometry. laboratory monitor is a sinus rhythm. Review of Systems CONSTITUTIONAL: Well-developed no acute respiratory distress. Denies fever, denies chills. EYES: No icterus sclerae, no conjunctivitis. EARS, NOSE, MOUTH, THROAT, and FACE: No sore throat, lymphadenopathy, carotid bruits or deformity. RESPIRATORY: No SOB cough or wheezes. CARDIOVASCULAR: No CP, Palpitation, PND, Orthopnea, or angina. GASTROINTESTINAL: abdominal pain controlled, no nausea vomiting. GENITOURINARY: Negative for Hematuria or UTI, no kidney stones. Saavedra in place INTEGUMENT/BREAST: Negative for any muscular injury with mild osteoarthritis.. HEMATOLOGIC/LYMPHATIC: history of CLL, mass was found today in the right MUSCULOSKELTAL: Negative for Myalgia or arthralgia. NEURLOGICAL: No LOC, Sz or syncope, blurred vision dizziness or abnormality. BEHAVIORAL/PSYCH: Negative. ENDOCRINE: Negative. Objective - Vital Signs Vital signs: Vital Signs Temp 98.0 F 04/07/19 04:00 Pulse 91 04/07/19 07:00 Resp 10 L 04/07/19 07:00 BP 88/55 04/07/19 07:00 Pulse Ox 96 04/07/19 07:00 Intake & Output 04/06/19 04/07/19 04/07/19 18:59 06:59 18:59 Intake Total 3100 1850 150 Output Total 310 370 35 Balance 2790 1480 115 Weight 85.9 kg Intake: IV 3100 1850 150 Lactated Ringers 1,000 ml 1800 750 @ 150 mls/hr IV .Q6H40M ONE Rx#:[id number] Piperacillin-Tazobactam 3 100 100 .375 gm In Sodium Chloride 0.9% 100 ml @ 25 mls/hr IVPB Q8HR [facility] Rx# :[id number] Potassium Chloride 10 meq 100 In Water For Injection 1 100ml.bag @ 100 mls/hr IVPB Q1H [facility] Rx#: [id number] Sodium Chloride 0.9% 1, 900 150 000 ml @ 150 mls/hr IV Sodium Chloride 0.9% 1, 1000 000 ml @ 999 mls/hr IV . Q1H1M ONE Rx#:[id number] metroNIDAZOLE-NS PMX 500 100 100 mg In Saline 1 100ml.bag @ 100 mls/hr IVPB Q8HR [facility] Rx#:[id number] Output: Urine 310 370 35 Other: Voiding Method Indwelling Catheter Indwelling Catheter - Exam General Appearance: Alert, cooperative, no distress, appears stated age. Patient's is at bedside. Neck HEENT: Supple, no lymphadenopathy, no thyroid enlargement, no carotid bruits. Lungs: Clear to auscultation without crackles or wheezes no rhonchi, no deformity. Chest Wall: Chest wall normal expansion with deep inspiration no tenderness and no deformity was found on exam, no costochondral pain or discomfort. Heart: Regular rate and rhythm, S1, S2 normal, no murmur, rub or gallop. Back: Symmetric, no curvature, ROM normal, no CVA tenderness. Abdomen: Wound VAC and abdominal binder in place. Hypoactive bowel sounds. Extremities: Extremities normal, atraumatic, no cyanosis or edema. Pulses: 2+ and symmetric. Skin: Skin color, texture, tugor normal, no rashes or lesions. Neurologic: Alert oriented x3 cranial nerves II through XII intact, no motor deficit, no abnormal balance or gait. - Labs CBC & Chem 7: 04/07/19 05:13 04/07/19 05:13 Labs: Abnormal Lab Results - Last 24 Hours (Table) 04/07/19 04/07/19 Range/Units 05:13 05:13 RBC 3.72 L (4.30-5.90) m/uL Hgb 8.1 L (13.0-17.5) gm/dL Hct 27.0 L (39.0-53.0) % MCV 72.7 L (80.0-100.0) fL MCH 21.9 L (25.0-35.0) pg MCHC 30.1 L (31.0-37.0) g/dL Chloride 118 H (98-107) mmol/L Carbon Dioxide 20 L (22-30) mmol/L Calcium 7.3 L (8.4-10.2) mg/dL Total Bilirubin 1.6 H (0.2-1.3) mg/dL Total Protein 3.4 L (6.3-8.2) g/dL Albumin 1.8 L (3.5-5.0) g/dL Microbiology - Last 24 Hours (Table) 04/04/19 12:00 Blood Culture - Preliminary Blood No Growth after 48 hours Assessment and Plan Plan: 1 severe intractable abdominal pain: Secondary to bowel obstruction from large right-sided colon cancer. Patient has been seen by Dr. Romo status post right colectomy. Continue epidural to be discontinued today, Zofran for nausea. Patient is currently nothing by mouth. 2 acute bowel obstruction: Secondary to large colon cancer in the right side. 3 large right-sided colon cancer or mass. General surgery and and oncology consultation. 4 history of CLL: Has been in remission. 5 fever or chills and possible infectious colitis. Consult with Dr. Nixon in place. Continue Levaquin, Flagyl and Zosyn. 6 BPH: Watch for any urinary retention. 7 GI prophylaxis: Patient will be on pantoprazole 40 mg daily. 8 DVT prophylaxis: Patient will be on heparin 5000 units subcutaneous twice a day. 9 acute blood loss anemia, expected from surgery. Monitor CBC daily. CODE STATUS: Full code. Discharge plan: Home, possible subacute rehab. PT and OT added. Impression and plan of care have been directed as dictated by the signing physician. Dorina Ortega nurse practitioner acting as scribe for signing physician.
--- NOTE | 2019-04-07 11:07 | P.PN ---
Progress Note - Text Progress Note Date: 04/07/19 The patient states fairly well. He has complaints of some incisional pain. He's had a small amount of flatus. On exam is lesser stable. His abdomen soft. Incision site is clean dry intact. Status post right colectomy for obstructing metastatic right colon cancer. Patient will remain in the ICU today. He'll most likely be transferred to the floor tomorrow.
--- NOTE | 2019-04-07 14:36 | PN ---
PROGRESS NOTE DATE OF SERVICE: 04/07/2019 REASON FOR FOLLOWUP: Secondary peritonitis. INTERVAL HISTORY: The patient is currently afebrile. The patient is hemodynamically stable. He is breathing comfortably. Denies having any chest pain or any cough, slight abdominal pain, but no worsening. No nausea, no vomiting. PHYSICAL EXAMINATION: Blood pressure 98/46, pulse of 80, temperature 98.3, he is 97% on room air. General description is an elderly male, lying in bed in no distress. RESPIRATORY SYSTEM: Unlabored breathing, clear to auscultation anteriorly. HEART: S1, S2. Regular rate and rhythm. ABDOMEN: Soft, no tenderness. No guarding or rigidity. LABS: Hemoglobin 8.1, white count 4.8. BUN of 20, creatinine 0.88. Blood culture has been negative. DIAGNOSTIC IMPRESSION AND PLAN: Patient with secondary peritonitis in this patient who did have a large colon tumor with significant distention of the cecum and necroses with seropurulent drainage. Patient currently covered with Zosyn. No need for the Levaquin and Flagyl at the same time, which will be discontinued and the patient's clinical course will monitored closely. Continue supportive care. MMODL / IJN: [id number] /
--- NOTE | 2019-04-07 14:40 | P.PN ---
Subjective Progress Note Date: 04/07/19 On today's evaluation of 04/07/2019, the patient is doing very well. No nausea. No vomiting. No abdominal pain. Surgical wound site is dry clean and intact. Bowel sounds are hypoactive and sluggish. No flatus. No bowel activity. Hemodynamically stable. No altered mentation. Using incentive spirometer. The wound VAC is in place. He is producing adequate amount of urine output. He is using the incentive spirometer. He is on Zosyn as a broad-spectrum antibiotic coverage. He is on Dilaudid for pain control. He is ambulating to the chair. No other significant events otherwise. He is PACs and the hall monitor. His potassium level is been placed. EKG was done and showed a normal sinus mechanism with frequent PACs. Objective - Vital Signs Vital signs: Vital Signs Temp 98.3 F 04/07/19 12:00 Pulse 89 04/07/19 13:00 Resp 19 04/07/19 13:00 BP 115/60 04/07/19 13:00 Pulse Ox 97 04/07/19 13:00 Intake & Output 04/06/19 04/07/19 04/07/19 18:59 06:59 18:59 Intake Total 3100 1850 1200 Output Total 310 370 225 Balance 2790 1480 975 Weight 85.9 kg 85.9 kg Intake: IV 3100 1850 1200 Lactated Ringers 1,000 ml 1800 750 @ 150 mls/hr IV .Q6H40M [facility] Rx#:[id number] Piperacillin-Tazobactam 3 100 100 100 .375 gm In Sodium Chloride 0.9% 100 ml @ 25 mls/hr IVPB Q8HR [facility] Rx# :[id number] Potassium Chloride 10 meq 100 100 In Water For Injection 1 100ml.bag @ 100 mls/hr IVPB Q1H [facility] Rx#: [id number] Sodium Chloride 0.9% 1, 900 900 000 ml @ 150 mls/hr IV Sodium Chloride 0.9% 1, 1000 000 ml @ 999 mls/hr IV . Q1H1M [facility] Rx#:[id number] metroNIDAZOLE-NS PMX 500 100 100 100 mg In Saline 1 100ml.bag @ 100 mls/hr IVPB Q8HR [facility] Rx#:[id number] Output: Urine 310 370 225 Other: Voiding Method Indwelling Catheter Indwelling Catheter Indwelling Catheter - Exam Gen. appearance the patient is calm and comfortable well-developed nonacute distress Head exam was generally normal. There was no scleral icterus or corneal arcus. Mucous membranes were moist. Neck was supple and without jugular venous distension, thyromegaly, or carotid bruits. Carotids were easily palpable bilaterally. There was no adenopathy. Lungs were clear to auscultation and percussion, and with normal diaphragmatic excursion. No wheezes or rales were noted. Cardiac exam revealed the PMI to be normally situated and sized. The rhythm was regular and no extrasystoles were noted during several minutes of auscultation. The first and second heart sounds were normal and physiologic splitting of the second heart sound was noted. There were no murmurs, rubs, clicks, or gallops. Abdomen is soft. Incision is dry clean and intact. Bowel sounds are absent. No direct tenderness rebound tensile guarding. No ascites. No organomegaly. Examination of the extremities revealed easily palpable radial, femoral and pedal pulses. There was no cyanosis, clubbing or edema. Examination of the skin revealed no evidence of significant rashes, suspicious appearing nevi or other concerning lesions. Neurologically is awake and alert and there is no focal neurological deficit. - Labs CBC & Chem 7: 04/07/19 05:13 04/07/19 05:13 Labs: Abnormal Lab Results - Last 24 Hours (Table) 04/07/19 04/07/19 Range/Units 05:13 05:13 RBC 3.72 L (4.30-5.90) m/uL Hgb 8.1 L (13.0-17.5) gm/dL Hct 27.0 L (39.0-53.0) % MCV 72.7 L (80.0-100.0) fL MCH 21.9 L (25.0-35.0) pg MCHC 30.1 L (31.0-37.0) g/dL Chloride 118 H (98-107) mmol/L Carbon Dioxide 20 L (22-30) mmol/L Calcium 7.3 L (8.4-10.2) mg/dL Total Bilirubin 1.6 H (0.2-1.3) mg/dL Total Protein 3.4 L (6.3-8.2) g/dL Albumin 1.8 L (3.5-5.0) g/dL Microbiology - Last 24 Hours (Table) 04/04/19 12:00 Blood Culture - Preliminary Blood No Growth after 72 hours Assessment and Plan Plan: 1 acute large bowel obstruction with a colonic mass. The patient underwent a right hemicolectomy with primary anastomosis. The patient is postop day #2. Final pathology is pending for now. Consider colon adenocarcinoma. Consider sarcoma. Consider lymphoma nontender the patient has history of CLL. The patient has hepatic metastases based on the CAT scan findings. The patient is doing well. The patient is ambulating. No bowel activity yet. Hemodynamically stable. 2 abdominal pain secondary to above, improved 3. Chronic lymphocytic leukemia 4 hypertension 5 hyperlipidemia 6 frequent PACs along with a sinus mechanism Plan Awaiting final pathology. Meanwhile, continue the supportive care. The patient is epidural pain control with a combination of a lot of than bupivacaine. IV fluids with 0.9 at 1 50 mL an hour. Encourage use of incentive spirometer. We'll continue to follow. I think the patient can be transferred to surgical floor today. We'll replace the potassium. We'll put him on a monitor regarding his frequent PACs.
--- NOTE | 2019-04-07 16:16 | P.PN ---
Subjective Progress Note Date: 04/07/19 The patient is status post resection of the tumor and end-to-end anastomosis. He is currently in the ICU. He is trying to improve mobility. Bowel function has not yet returned. No fever/chills, or obvious bleeding Objective - Vital Signs Vital signs: Vital Signs Temp 98.3 F 04/07/19 12:00 Pulse 89 04/07/19 13:00 Resp 19 04/07/19 13:00 BP 115/60 04/07/19 13:00 Pulse Ox 97 04/07/19 13:00 Intake & Output 04/06/19 04/07/19 04/07/19 18:59 06:59 18:59 Intake Total 3100 1850 1200 Output Total 310 370 225 Balance 2790 1480 975 Weight 85.9 kg 85.9 kg Intake: IV 3100 1850 1200 Lactated Ringers 1,000 ml 1800 750 @ 150 mls/hr IV .Q6H40M [facility] Rx#:[id number] Piperacillin-Tazobactam 3 100 100 100 .375 gm In Sodium Chloride 0.9% 100 ml @ 25 mls/hr IVPB Q8HR [facility] Rx# :[id number] Potassium Chloride 10 meq 100 100 In Water For Injection 1 100ml.bag @ 100 mls/hr IVPB Q1H [facility] Rx#: [id number] Sodium Chloride 0.9% 1, 900 900 000 ml @ 150 mls/hr IV Sodium Chloride 0.9% 1, 1000 000 ml @ 999 mls/hr IV . Q1H1M [facility] Rx#:[id number] metroNIDAZOLE-NS PMX 500 100 100 100 mg In Saline 1 100ml.bag @ 100 mls/hr IVPB Q8HR [facility] Rx#:[id number] Output: Urine 310 370 225 Other: Voiding Method Indwelling Catheter Indwelling Catheter Indwelling Catheter - Constitutional General appearance: Present: no acute distress - EENT Eyes: Present: EOMI ENT: Present: hearing grossly normal, normal oropharynx - Respiratory Respiratory: bilateral: diminished - Cardiovascular Rhythm: regular Heart sounds: normal: S1, S2 - Labs CBC & Chem 7: 04/07/19 05:13 04/07/19 05:13 Labs: Abnormal Lab Results - Last 24 Hours (Table) 04/07/19 04/07/19 Range/Units 05:13 05:13 RBC 3.72 L (4.30-5.90) m/uL Hgb 8.1 L (13.0-17.5) gm/dL Hct 27.0 L (39.0-53.0) % MCV 72.7 L (80.0-100.0) fL MCH 21.9 L (25.0-35.0) pg MCHC 30.1 L (31.0-37.0) g/dL Chloride 118 H (98-107) mmol/L Carbon Dioxide 20 L (22-30) mmol/L Calcium 7.3 L (8.4-10.2) mg/dL Total Bilirubin 1.6 H (0.2-1.3) mg/dL Total Protein 3.4 L (6.3-8.2) g/dL Albumin 1.8 L (3.5-5.0) g/dL Microbiology - Last 24 Hours (Table) 04/04/19 12:00 Blood Culture - Preliminary Blood No Growth after 72 hours - Imaging and Cardiology Chest x-ray: report reviewed Assessment and Plan (1) Colonic mass Narrative/Plan: The patient is status post resection, because of obstructive symptoms. He was able to have resection and end-to-end anastomosis. He is currently in the ICU. He is hemodynamically stable, and is working with physical therapy. Pain is controlled The operative findings were discussed with him. He was advised that liver metastasis, seen on CT scan were confirmed on palpation intraoperatively. He was just advised that, assuming pathology confirms colon cancer, the main stay of treatment would be systemic chemotherapy, plus immunotherapy. Immunotherapy choice would depend on biomarker status. However he would not start any active therapy for at least 4 weeks post surgery, or longer if his performance status has not recovered sufficiently. He will thus need to follow- up in the office, about 3-4 weeks post discharge Current Visit: Yes Status: Acute Priority: High Code(s): K63.9 - DISEASE OF INTESTINE, UNSPECIFIED SNOMED Code(s): 046753213 (2) CLL (chronic lymphocytic leukemia) Narrative/Plan: No evidence of recurrence per CBC. Current Visit: No Status: Chronic Priority: Low Code(s): C91.90 - LYMPHOID LEUKEMIA, UNSPECIFIED NOT HAVING ACHIEVED REMISSION SNOMED Code(s): 56292031 Plan: Defer to the admitting service, surgical service and CCM for management of his postop and ICU care
[2019-04-08] MEDS: HYDROMORPHONE EPIDURAL PRN (02:32)
[2019-04-08] MEDS: SODIUM CHLORIDE 0.9% EPIDURAL PRN (02:32)
[2019-04-08] MEDS: ROPIVACAINE EPIDURAL PRN (02:32)
[2019-04-08 07:22] LABS: HCT 28.7 % (39.0-53.0); HGB 8.7 gm/dL (13.0-17.5); Hypochromasia Marked; MCH 22.1 pg (25.0-35.0); MCHC 30.2 g/dL (31.0-37.0); Mean Platelet Volume 6.8; Microcytosis Slight; Platelet Count 236 k/uL (150-450); RBC 3.94 m/uL (4.30-5.90); RDW 15.6 % (11.5-15.5); WBC 4.9 k/uL (3.8-10.6)
[2019-04-08 07:28] LABS: ALT 25 U/L (21-72); AST 30 U/L (17-59); Albumin 1.8 g/dL (3.5-5.0); Alkaline Phosphatase 59 U/L (38-126); Anion Gap 6 mmol/L; Blood Urea Nitrogen 20 mg/dL (9-20); Calcium 7.5 mg/dL (8.4-10.2); Carbon Dioxide 17 mmol/L (22-30); Chloride 120 mmol/L (98-107); Glucose 69 mg/dL (74-99); Potassium 3.9 mmol/L (3.5-5.1); Sodium 143 mmol/L (137-145); Total Bilirubin 1.6 mg/dL (0.2-1.3); Total Protein 3.5 g/dL (6.3-8.2)
--- NOTE | 2019-04-08 07:42 | P.PN ---
Progress Note - Text Progress Note Date: 04/08/19 Pt w/o complaints. Pain controlled. OOB daily. No paresthesia or LE weakness. Denies headache. Epidural @ 8 ml/hr. Epidural site clean and dry. A/P POD # 3 s/p right colectomy - Continue epidural
[2019-04-08] MEDS: ENOXAPARIN 40 MG/0.4 ML SYRINGE SQ SCH (09:04)
[2019-04-08] MEDS: PANTOPRAZOLE 40 MG/10 ML VIAL IVP SCH (09:05)
[2019-04-08] MEDS: PIPERACILLIN-TAZOBACTAM 3.375 GM in SODIUM CHLORIDE 0.9% 100 ML IVPB SCH ×3 (09:21→23:26)
[2019-04-08] MEDS ORDERED: SODIUM CHLORIDE 0.9% 1,000 ML IV SCH (10:15)
--- NOTE | 2019-04-08 11:01 | P.PN ---
Progress Note - Text Progress Note Date: 04/08/19 Patient is doing fairly well. He has middle pain. On exam his vital signs are stable. His abdomen soft. Incision site is clean dry intact. Patient will have his epidural stopped today. We will slowly advance his diet tomorrow.
--- NOTE | 2019-04-08 13:31 | P.PN ---
Subjective Progress Note Date: 04/08/19 79-year-old male one of my office patient with known for the last 7 years with past medical history of CLL, history of elevated blood pressure and BPH along with mild hyperlipidemia who has been doing well was moved to [facility] few years ago used to see all primary care and health care provider down at [facility]. Patient called this morning complaining of intractable pain with nausea for the last few days with no bowel movement become much worse symptoms located in the right lower quadrant area was instructed to bring him to the emergency department where was seen and evaluated at [facility] surprisingly abdominal CT came back with large mass in the right side with metastasis looks like stage IV colon cancer. Review his last colonoscopy from 2015 was negative for any polyp colitis or finding at the time. Patient also is going through bowel obstruction NG tube was inserted patient was seen general surgery in consultation with his temperature been elevated patient was started on Zosyn and Levaquin pain management IV fluid resuscitation and will be admitted to the hospital for the above problem. 04/05: Patient is scheduled for a right colectomy this afternoon with Dr. Romo. Patient inadvertently pulled out NG tube this morning. Pain is currently controlled. He has been maintained on Dilaudid as needed. He is currently on Levaquin and Zosyn. Patient has been afebrile, heart rate 107, blood pressure 113/54, pulse ox 95-98% on room air. 04/06: Patient is status post right colectomy and partial omentectomy completed yesterday by Dr. Romo. He is currently on Levaquin and Flagyl and a consult in place with Dr. Nixon. Patient was transferred to the intensive care unit and is followed by Dr. Montelongo for intensive care management. No NG tube in place. He denies any nausea or vomiting. Pain is currently controlled. Epidural is in place. Saavedra catheter remains in place. Temperature max 100.1, heart rate 100, blood pressure 101/60, pulse ox 96% on 2 L. White count is 5.4 and hemoglobin 9.1. 04/07: Patient remains in the intensive care unit. He has been afebrile, blood pressure low this morning at 88/44, pulse ox 96% on 3 L, heart rate in 80s to 90. Repeat lab work reveals a normal white count of 4.8, hemoglobin 8.1, BUN 20 and creatinine 0.88. Albumin 1.8, chloride 118 and CO2 20. Patient has epidural catheter still in place to be discontinued this morning. Saavedra catheter remains in place Patient was seen by Dr. Nixon and antibiotics are Levaquin, Flagyl and Zosyn. Patient denies any nausea or vomiting. He states his pain is controlled. He is currently nothing by mouth. He has not had a bowel movement. No NG tube in place. He is reaching 1000 ML's on incentive spirometry. equipment monitor phototypesetting is a sinus rhythm. 04/08: Patient was moved out of the intensive care unit last night, his sitting up in bed in no apparent distress he denies any chest pain, he denies any shortness breath, he is using incentive spirometer and regular basis, , patient has a EDITOR CONTINUITY AND SCRIPT in place, his pain is well controlled at this point in time. He is using ice chips. Still poor appetite. Review of Systems CONSTITUTIONAL: Well-developed no acute respiratory distress. Denies fever, denies chills. EYES: No icterus sclerae, no conjunctivitis. EARS, NOSE, MOUTH, THROAT, and FACE: No sore throat, lymphadenopathy, carotid bruits or deformity. RESPIRATORY: No SOB cough or wheezes. CARDIOVASCULAR: No CP, Palpitation, PND, Orthopnea, or angina. GASTROINTESTINAL: abdominal pain controlled, no nausea vomiting. GENITOURINARY: Negative for Hematuria or UTI, no kidney stones. Saavedra in place INTEGUMENT/BREAST: Negative for any muscular injury with mild osteoarthritis.. HEMATOLOGIC/LYMPHATIC: history of CLL, mass was found today in the right MUSCULOSKELTAL: Negative for Myalgia or arthralgia. NEURLOGICAL: No LOC, Sz or syncope, blurred vision dizziness or abnormality. BEHAVIORAL/PSYCH: Negative. ENDOCRINE: Negative. Objective - Vital Signs Vital signs: Vital Signs Temp 98.3 F 04/08/19 04:50 Pulse 91 04/08/19 04:50 Resp 16 04/08/19 04:50 BP 110/67 04/08/19 04:50 Pulse Ox 95 04/08/19 04:50 Intake & Output 04/07/19 04/08/19 04/08/19 18:59 06:59 18:59 Intake Total 2100 2221.5 Output Total 350 385 Balance 1750 1836.5 Weight 85.9 kg 91.5 kg Intake: IV 2100 2057 Piperacillin-Tazobactam 3 100 100 .375 gm In Sodium Chloride 0.9% 100 ml @ 25 mls/hr IVPB Q8HR [facility] Rx# :[id number] Potassium Chloride 10 meq 100 In Water For Injection 1 100ml.bag @ 100 mls/hr IVPB Q1H [facility] Rx#: [id number] Ropivacaine 300 mg 7 Hydromorphone (Pf) 3.75 mg In Sodium Chloride 0.9 % 190 ml @ Per Protocol EPIDURAL .Q0M [facility] Rx#: [id number] Sodium Chloride 0.9% 1, 1800 1950 000 ml @ 150 mls/hr IV metroNIDAZOLE-NS PMX 500 100 mg In Saline 1 100ml.bag @ 100 mls/hr IVPB Q8HR [facility] Rx#:[id number] Intake, IV Titration 164.5 Amount Ropivacaine 300 mg 164.5 Hydromorphone (Pf) 3.75 mg In Sodium Chloride 0.9 % 190 ml @ Per Protocol EPIDURAL .Q0M [facility] Rx#: [id number] Output: Urine 350 385 Other: Voiding Method Indwelling Catheter Indwelling Catheter - Exam General Appearance: Alert, cooperative, no distress, appears stated age. Patient's is at bedside. Neck HEENT: Supple, no lymphadenopathy, no thyroid enlargement, no carotid bruits. Lungs: Clear to auscultation without crackles or wheezes no rhonchi, no deformity. Chest Wall: Chest wall normal expansion with deep inspiration no tenderness and no deformity was found on exam, no costochondral pain or discomfort. Heart: Regular rate and rhythm, S1, S2 normal, no murmur, rub or gallop. Back: Symmetric, no curvature, ROM normal, no CVA tenderness. Abdomen: Wound VAC and abdominal binder in place. Hypoactive bowel sounds. Extremities: Extremities normal, atraumatic, no cyanosis or edema. Pulses: 2+ and symmetric. Skin: Skin color, texture, tugor normal, no rashes or lesions. Neurologic: Alert oriented x3 cranial nerves II through XII intact, no motor deficit, no abnormal balance or gait. - Labs CBC & Chem 7: 04/08/19 06:34 04/08/19 06:34 Labs: Abnormal Lab Results - Last 24 Hours (Table) 05/04/08/19 04/08/19 Range/Units 05:13 06:34 06:34 RBC 3.94 L (4.30-5.90) m/uL Hgb 8.7 L (13.0-17.5) gm/dL Hct 28.7 L (39.0-53.0) % MCV 73.0 L (80.0-100.0) fL MCH 22.1 L (25.0-35.0) pg MCHC 30.2 L (31.0-37.0) g/dL RDW 15.6 H (11.5-15.5) % Chloride 120 H (98-107) mmol/L Carbon Dioxide 17 L (22-30) mmol/L Glucose 69 L (74-99) mg/dL Calcium 7.5 L (8.4-10.2) mg/dL Total Bilirubin 1.6 H (0.2-1.3) mg/dL Total Protein 3.5 L (6.3-8.2) g/dL Albumin 1.8 L (3.5-5.0) g/dL Carcinoembryonic Ag 15.7 H (0.0-4.9) ng/mL Microbiology - Last 24 Hours (Table) 04/04/19 12:00 Blood Culture - Preliminary Blood No Growth after 72 hours Assessment and Plan Assessment: Assessment and plan: 1. Post operative day #3 status post right sided hemicolectomy due to a large colon cancer/mass with primary anastomosis. Patient is currently outside the intensive care unit continue with incentive spirometer continue supportive care, continue to monitor the patient very closely. Patient was seen by hematology oncology service the plan for systemic chemotherapy and immunotherapy is to be started down the line a month from now. 2. Abdominal pain secondary to bowel obstruction due to colonic cancer. Status post surgery pain is well-controlled today. 3. Acute blood loss anemia. Expected outcome of surgery. Monitor the patient's CBC. 4. Non-anion gap metabolic acidosis with hyperchloremia due to aggressive IV fluid resuscitation will change IV fluid to D5 half-normal saline at 75 mL an hour. Repeat CMP tomorrow morning. 5. History of CLL. Currently in remission. 6. DVT prophylaxis. Continue patient on Lovenox 40 mg subcutaneously every 24 hours. 7. GI prophylaxis. Continue patient on Protonix 40 mg push every 24 hours. 8. Prognosis is guarded. 9. Patient is full code.
--- NOTE | 2019-04-08 14:02 | P.PN ---
Subjective Progress Note Date: 04/08/19 On 04/08/2019, the patient is awake and alert. Sluggish bowel sounds. No flatus or bowel movement yet. On examination he has some bowel sounds. Wound VAC is still in place. No nausea. No vomiting. No emesis. No abdominal distention. No stridor distress. No fever. No chills. No other complaints otherwise for now. No respiratory distress. His IV fluids will be kept on into half. No other significant events over the past 24 hours. His emanating. Is using incentive spirometer. Objective - Vital Signs Vital signs: Vital Signs Temp 98.0 F 04/08/19 12:44 Pulse 98 04/08/19 12:44 Resp 15 04/08/19 12:44 BP 101/51 04/08/19 12:44 Pulse Ox 94 L 04/08/19 12:44 Intake & Output 04/07/19 04/08/19 04/08/19 18:59 06:59 18:59 Intake Total 2100 2221.5 Output Total 350 385 Balance 1750 1836.5 Weight 85.9 kg 91.5 kg Intake: IV 2100 7 Piperacillin-Tazobactam 3 100 100 .375 gm In Sodium Chloride 0.9% 100 ml @ 25 mls/hr IVPB Q8HR [facility] Rx# :[id number] Potassium Chloride 10 meq 100 In Water For Injection 1 100ml.bag @ 100 mls/hr IVPB Q1H [facility] Rx#: [id number] Ropivacaine 300 mg 7 Hydromorphone (Pf) 3.75 mg In Sodium Chloride 0.9 % 190 ml @ Per Protocol EPIDURAL .Q0M [facility] Rx#: [id number] Sodium Chloride 0.9% 1, 1800 1950 000 ml @ 150 mls/hr IV metroNIDAZOLE-NS PMX 500 100 mg In Saline 1 100ml.bag @ 100 mls/hr IVPB Q8HR [facility] Rx#:[id number] Intake, IV Titration 164.5 Amount Ropivacaine 300 mg 164.5 Hydromorphone (Pf) 3.75 mg In Sodium Chloride 0.9 % 190 ml @ Per Protocol EPIDURAL .Q0M [facility] Rx#: [id number] Output: Urine 350 385 Other: Voiding Method Indwelling Catheter Indwelling Catheter Indwelling Catheter - Exam Gen. appearance the patient is calm and comfortable well-developed nonacute distress Head exam was generally normal. There was no scleral icterus or corneal arcus. Mucous membranes were moist. Neck was supple and without jugular venous distension, thyromegaly, or carotid b ruits. Carotids were easily palpable bilaterally. There was no adenopathy. Lungs were clear to auscultation and percussion, and with normal diaphragmatic excursion. No wheezes or rales were noted. Cardiac exam revealed the PMI to be normally situated and sized. The rhythm was regular and no extrasystoles were noted during several minutes of auscultation. The first and second heart sounds were normal and physiologic splitting of the second heart sound was noted. There were no murmurs, rubs, clicks, or gallops. Abdomen is soft. Incision is dry clean and intact. Bowel sounds are absent. No direct tenderness rebound tensile guarding. No ascites. No organomegaly. Examination of the extremities revealed easily palpable radial, femoral and pedal pulses. There was no cyanosis, clubbing or edema. Examination of the skin revealed no evidence of significant rashes, suspicious appearing nevi or other concerning lesions. Neurologically is awake and alert and there is no focal neurological deficit. - Labs CBC & Chem 7: 04/08/19 06:34 04/08/19 06:34 Labs: Abnormal Lab Results - Last 24 Hours (Table) 04/07/19 04/08/19 04/08/19 Range/Units 05:13 06:34 06:34 RBC 3.94 L (4.30-5.90) m/uL Hgb 8.7 L (13.0-17.5) gm/dL Hct 28.7 L (39.0-53.0) % MCV 73.0 L (80.0-100.0) fL MCH 22.1 L (25.0-35.0) pg MCHC 30.2 L (31.0-37.0) g/dL RDW 15.6 H (11.5-15.5) % Chloride 120 H (98-107) mmol/L Carbon Dioxide 17 L (22-30) mmol/L Glucose 69 L (74-99) mg/dL Calcium 7.5 L (8.4-10.2) mg/dL Total Bilirubin 1.6 H (0.2-1.3) mg/dL Total Protein 3.5 L (6.3-8.2) g/dL Albumin 1.8 L (3.5-5.0) g/dL Carcinoembryonic Ag 15.7 H (0.0-4.9) ng/mL Microbiology - Last 24 Hours (Table) 04/04/19 12:00 Blood Culture - Preliminary Blood No Growth after 72 hours Assessment and Plan Plan: 1 acute large bowel obstruction with a colonic mass. The patient underwent a right hemicolectomy with primary anastomosis. The patient is postop day #3. Final pathology is pending for now. Consider colon adenocarcinoma. Consider sarcoma. Consider lymphoma nontender the patient has history of CLL. The patient has hepatic metastases based on the CAT scan findings. The patient is doing well. The patient is ambulating. No bowel activity yet. Hemodynamically stable. Patient got transferred out of the intensive care unit yesterday. Bowel sounds remain hypoactive. The patient has not passed any flatus or bowel movement yet. 2 abdominal pain secondary to above, improved 3. Chronic lymphocytic leukemia 4 hypertension 5 hyperlipidemia 6 frequent PACs along with a sinus mechanism Plan Awaiting final pathology. Meanwhile, continue the supportive care. We are going to remove the epidural catheter. Remove the Saavedra catheter. The Fluid into Half. Ambulate. Using Incentive Spirometer. Pulmonary and critically care services we'll sign off. His condition is stable.
[2019-04-08] MEDS: DEXTROSE 5%-0.45% NACL 1,000 ML IV SCH (15:57)
--- NOTE | 2019-04-08 16:51 | PN ---
PROGRESS NOTE DATE OF SERVICE: 04/08/2019 REASON FOR FOLLOWUP: Secondary peritonitis with ischemic INTERVAL HISTORY: The patient is currently afebrile. The patient has been transferred out to the ICU. He is currently on the med/surg floor. He did mention slight abdominal discomfort after he had some extra ice chips, but no nausea or vomiting. No chest pain, shortness of breath or cough. PHYSICAL EXAMINATION: Blood pressure is 101/51 with a pulse of 98, temperature 98. He is 94% on room air. General description is an elderly male lying in bed in no distress. RESPIRATORY SYSTEM: Unlabored breathing. Clear to auscultation anteriorly. HEART: S1, S2. Regular rate and rhythm. ABDOMEN: Soft. No tenderness. LABS: Hemoglobin 8.7, white count 4.9, BUN of 20, creatinine 0.89. Blood culture has been negative. DIAGNOSTIC IMPRESSION AND PLAN: Patient with a right-sided colon tumor with significant distention of the cecum, ischemic necrosis and mucopurulent fluid, status post right hemicolectomy. Patient is currently covered with Zosyn; to continue while monitoring his clinical course closely. Hopefully transition to oral antibiotic when his oral intake has improved. Continue with supportive care. MMODL / IJN: [id number] /
[2019-04-09] MEDS: HYDROmorphone 0.5 MG/0.5 ML SYRINGE IVP PRN ×2 (01:23→05:39)
[2019-04-09] MEDS: DEXTROSE 5%-0.45% NACL 1,000 ML IV SCH (03:28)
[2019-04-09 07:37] LABS: ALT 20 U/L (21-72); AST 33 U/L (17-59); Albumin 1.8 g/dL (3.5-5.0); Alkaline Phosphatase 63 U/L (38-126); Anion Gap 5 mmol/L; Blood Urea Nitrogen 18 mg/dL (9-20); Calcium 7.6 mg/dL (8.4-10.2); Carbon Dioxide 17 mmol/L (22-30); Chloride 120 mmol/L (98-107); Glucose 119 mg/dL (74-99); Potassium 3.3 mmol/L (3.5-5.1); Sodium 142 mmol/L (137-145); Total Bilirubin 1.8 mg/dL (0.2-1.3); Total Protein 3.4 g/dL (6.3-8.2)
[2019-04-09 08:59] LABS: HCT 29.3 % (39.0-53.0); Hypochromasia Marked; MCH 22.3 pg (25.0-35.0); MCHC 30.6 g/dL (31.0-37.0); Microcytosis Slight; Platelet Count 261 k/uL (150-450); RBC 4.02 m/uL (4.30-5.90); RDW 15.3 % (11.5-15.5); WBC 5.1 k/uL (3.8-10.6)
[2019-04-09 09:29] LABS: Band Neutrophils % 1 %; Lymphocytes # (M) 0.66 k/uL (1.0-4.8); Monocytes # (M) 0.31 k/uL (0-1.0); Neutrophils % (M) 80 %; Nucleated Red Blood Cells 0 /100 WBC (0-0); Poikilocytosis (M) Present; Total Cells Counted 100
[2019-04-09] MEDS: PANTOPRAZOLE 40 MG/10 ML VIAL IVP SCH (09:29)
[2019-04-09] MEDS: PIPERACILLIN-TAZOBACTAM 3.375 GM in SODIUM CHLORIDE 0.9% 100 ML IVPB SCH ×2 (09:29→17:27)
[2019-04-09] MEDS: ENOXAPARIN 40 MG/0.4 ML SYRINGE SQ SCH (09:30)
--- NOTE | 2019-04-09 09:56 | P.PN ---
Progress Note - Text Progress Note Date: 04/09/19 The patient feels well. He had 2 large bowel movements. He's had flatus. He is hungry and requesting more tea. On exam his vital signs are stable. His abdomen is soft. Incision site is clean dry and intact. Status post right colectomy. Patient will start on clear liquid diet.
--- NOTE | 2019-04-09 11:33 | P.PN ---
Subjective Progress Note Date: 04/09/19 79-year-old male one of my office patient with known for the last 7 years with past medical history of CLL, history of elevated blood pressure and BPH along with mild hyperlipidemia who has been doing well was moved to [facility] few years ago used to see all primary care and health care provider down at [facility]. Patient called this morning complaining of intractable pain with nausea for the last few days with no bowel movement become much worse symptoms located in the right lower quadrant area was instructed to bring him to the emergency department where was seen and evaluated at [facility] surprisingly abdominal CT came back with large mass in the right side with metastasis looks like stage IV colon cancer. Review his last colonoscopy from 2015 was negative for any polyp colitis or finding at the time. Patient also is going through bowel obstruction NG tube was inserted patient was seen general surgery in consultation with his temperature been elevated patient was started on Zosyn and Levaquin pain management IV fluid resuscitation and will be admitted to the hospital for the above problem. 04/05: Patient is scheduled for a right colectomy this afternoon with Dr. Romo. Patient inadvertently pulled out NG tube this morning. Pain is currently controlled. He has been maintained on Dilaudid as needed. He is currently on Levaquin and Zosyn. Patient has been afebrile, heart rate 107, blood pressure 113/54, pulse ox 95-98% on room air. 04/06: Patient is status post right colectomy and partial omentectomy completed yesterday by Dr. Romo. He is currently on Levaquin and Flagyl and a consult in place with Dr. Nixon. Patient was transferred to the intensive care unit and is followed by Dr. Montelongo for intensive care management. No NG tube in place. He denies any nausea or vomiting. Pain is currently controlled. Epidural is in place. Saavedra catheter remains in place. Temperature max 100.1, heart rate 100, blood pressure 101/60, pulse ox 96% on 2 L. White count is 5.4 and hemoglobin 9.1. 04/07: Patient remains in the intensive care unit. He has been afebrile, blood pressure low this morning at 88/44, pulse ox 96% on 3 L, heart rate in 80s to 90. Repeat lab work reveals a normal white count of 4.8, hemoglobin 8.1, BUN 20 and creatinine 0.88. Albumin 1.8, chloride 118 and CO2 20. Patient has epidural catheter still in place to be discontinued this morning. Saavedra catheter remains in place Patient was seen by Dr. Nixon and antibiotics are Levaquin, Flagyl and Zosyn. Patient denies any nausea or vomiting. He states his pain is controlled. He is currently nothing by mouth. He has not had a bowel movement. No NG tube in place. He is reaching 1000 ML's on incentive spirometry. ekg monitor tech is a sinus rhythm. 04/08: Patient was moved out of the intensive care unit last night, his sitting up in bed in no apparent distress he denies any chest pain, he denies any shortness breath, he is using incentive spirometer and regular basis, , patient has a TILE CLASSIFIER in place, his pain is well controlled at this point in time. He is using ice chips. Still poor appetite. 04/09: Patient is urinating very well and he is having 2 large bowel movement today and he is urinating well we will Hep-Lock his IV at this time and we will continue with clear liquid diet for now. Review of Systems CONSTITUTIONAL: Well-developed no acute respiratory distress. Denies fever, denies chills. EYES: No icterus sclerae, no conjunctivitis. EARS, NOSE, MOUTH, THROAT, and FACE: No sore throat, lymphadenopathy, carotid bruits or deformity. RESPIRATORY: No SOB cough or wheezes. CARDIOVASCULAR: No CP, Palpitation, PND, Orthopnea, or angina. GASTROINTESTINAL: abdominal pain controlled, no nausea vomiting. GENITOURINARY: Negative for Hematuria or UTI, no kidney stones. Saavedra in place INTEGUMENT/BREAST: Negative for any muscular injury with mild osteoarthritis.. HEMATOLOGIC/LYMPHATIC: history of CLL, mass was found today in the right MUSCULOSKELTAL: Negative for Myalgia or arthralgia. NEURLOGICAL: No LOC, Sz or syncope, blurred vision dizziness or abnormality. BEHAVIORAL/PSYCH: Negative. ENDOCRINE: Negative. Objective - Vital Signs Vital signs: Vital Signs Temp 98.3 F 04/09/19 04:23 Pulse 82 04/09/19 04:23 Resp 18 04/09/19 04:23 BP 122/72 04/09/19 04:23 Pulse Ox 96 04/09/19 04:23 Intake & Output 04/08/19 04/09/19 04/09/19 18:59 06:59 18:59 Intake Total 1360 Output Total 450 2 Balance -450 1358 Weight 94.5 kg Intake: IV 100 Piperacillin-Tazobactam 3 100 .375 gm In Sodium Chloride 0.9% 100 ml @ 25 mls/hr IVPB Q8HR [facility] Rx# :[id number] Intake, IV Titration 900 Amount Dextrose 5%-0.45% NaCl 1, 900 000 ml @ 75 mls/hr IV . [id number] [facility] Rx#:[id number] Oral 360 Output: Urine 450 2 Uretheral (Saavedra) 150 Other: Voiding Method Indwelling Catheter Bedside Commode Urinal # Voids 1 # Bowel Movements 1 - Exam General Appearance: Alert, cooperative, no distress, appears stated age. Amy valdes's is at bedside. Neck HEENT: Supple, no lymphadenopathy, no thyroid enlargement, no carotid bruits. Lungs: Clear to auscultation without crackles or wheezes no rhonchi, no deformity. Chest Wall: Chest wall normal expansion with deep inspiration no tenderness and no deformity was found on exam, no costochondral pain or discomfort. Heart: Regular rate and rhythm, S1, S2 normal, no murmur, rub or gallop. Back: Symmetric, no curvature, ROM normal, no CVA tenderness. Abdomen: Wound VAC and abdominal binder in place. Hypoactive bowel sounds. Extremities: Extremities normal, atraumatic, no cyanosis or edema. Pulses: 2+ and symmetric. Skin: Skin color, texture, tugor normal, no rashes or lesions. Neurologic: Alert oriented x3 cranial nerves II through XII intact, no motor deficit, no abnormal balance or gait. - Labs CBC & Chem 7: 04/09/19 06:52 04/09/19 06:52 Labs: Abnormal Lab Results - Last 24 Hours (Table) 04/09/19 04/09/19 Range/Units 06:52 06:52 RBC 4.02 L (4.30-5.90) m/uL Hgb 9.0 L (13.0-17.5) gm/dL Hct 29.3 L (39.0-53.0) % MCV 73.0 L (80.0-100.0) fL MCH 22.3 L (25.0-35.0) pg MCHC 30.6 L (31.0-37.0) g/dL Potassium 3.3 L (3.5-5.1) mmol/L Chloride 120 H (98-107) mmol/L Carbon Dioxide 17 L (22-30) mmol/L Glucose 119 H (74-99) mg/dL Calcium 7.6 L (8.4-10.2) mg/dL Total Bilirubin 1.8 H (0.2-1.3) mg/dL ALT 20 L (21-72) U/L Total Protein 3.4 L (6.3-8.2) g/dL Albumin 1.8 L (3.5-5.0) g/dL Microbiology - Last 24 Hours (Table) 04/04/19 12:00 Blood Culture - Preliminary Blood No Growth after 96 hours Assessment and Plan Assessment: Assessment and plan: 1. Post operative day #4 status post right sided hemicolectomy due to a large colon cancer/mass with primary anastomosis. Patient is currently outside the in tensive care unit continue with incentive spirometer continue supportive care, continue to monitor the patient very closely. Patient was seen by hematology oncology service the plan for systemic chemotherapy and immunotherapy is to be started down the line a month from now. 2. Abdominal pain secondary to bowel obstruction due to colonic cancer. Status post surgery pain is well-controlled today. 3. Acute blood loss anemia. Expected outcome of surgery. Monitor the patient's CBC. 4. Non-anion gap metabolic acidosis with hyperchloremia due to aggressive IV fluid resuscitation. Hep-Lock his IV encourage oral intake of fluid. 5. History of CLL. Currently in remission. 6. DVT prophylaxis. Continue patient on Lovenox 40 mg subcutaneously every 24 hours. 7. GI prophylaxis. Continue patient on Protonix 40 mg push every 24 hours. 8. Prognosis is guarded. 9. Patient is full code.
--- NOTE | 2019-04-09 16:04 | PN ---
PROGRESS NOTE DATE OF SERVICE: 04/09/2019. REASON FOR FOLLOWUP: Ischemic cecum and secondary peritonitis. INTERVAL HISTORY: The patient is currently afebrile. Patient has been feeling better. Breathing comfortably. Slightly lethargic though. No chest pain or any cough. No nausea, vomiting, abdominal pain. Did have a bowel movement. PHYSICAL EXAMINATION: Blood pressure 128/69 with a pulse of 88. Temperature 97.4. He is 97% on room air. General description is an elderly male lying in bed in no distress. Respiratory system: Unlabored breathing. Clear to auscultation anteriorly. Heart S1, S2. Regular rate and rhythm. ABDOMEN: Soft, no tenderness. LABS: Hemoglobin 9 with white count 5.9, BUN of 18, creatinine 0.1. DIAGNOSTIC IMPRESSION AND PLAN: Patient with right-sided colon mass with ischemic cecum distention and mucopurulent drainage, status post right hemicolectomy. The patient is currently covered on Zosyn to continue for now. We will monitor his clinical course closely. Continue supportive care. MMODL / IJN: [id number] /
[2019-04-10] MEDS: PIPERACILLIN-TAZOBACTAM 3.375 GM in SODIUM CHLORIDE 0.9% 100 ML IVPB SCH ×4 (00:28→23:43)
[2019-04-10] MEDS: HYDROmorphone 0.5 MG/0.5 ML SYRINGE IVP PRN (02:08)
[2019-04-10] MEDS: ONDANSETRON 4 MG/2 ML VIAL IVP PRN (06:11)
[2019-04-10 07:48] LABS: Anisocytosis Slight; Basophils % (A) 0 %; Eosinophils # (A) 0.2 k/uL (0-0.7); Eosinophils % (A) 4 %; HCT 34.3 % (39.0-53.0); HGB 10.6 gm/dL (13.0-17.5); Hypochromasia Marked; Lymphocytes # (A) 1.3 k/uL (1.0-4.8); Lymphocytes % (A) 22 %; MCH 22.6 pg (25.0-35.0); MCHC 30.8 g/dL (31.0-37.0); MCV 73.3 fL (80.0-100.0); Mean Platelet Volume 7.3; Microcytosis Slight; Monocytes # (A) 0.3 k/uL (0-1.0); Monocytes % (A) 5 %; Neutrophils # (A) 3.9 k/uL (1.3-7.7); Neutrophils % (A) 67 %; Platelet Count 290 k/uL (150-450); RBC 4.67 m/uL (4.30-5.90); RDW 16.7 % (11.5-15.5); WBC 5.9 k/uL (3.8-10.6)
[2019-04-10 08:01] LABS: ALT 25 U/L (21-72); AST 34 U/L (17-59); Albumin 2.1 g/dL (3.5-5.0); Alkaline Phosphatase 94 U/L (38-126); Anion Gap 5 mmol/L; Blood Urea Nitrogen 14 mg/dL (9-20); Calcium 7.6 mg/dL (8.4-10.2); Carbon Dioxide 19 mmol/L (22-30); Chloride 118 mmol/L (98-107); Glucose 105 mg/dL (74-99); Magnesium 1.9 mg/dL (1.6-2.3); Potassium 3.2 mmol/L (3.5-5.1); Sodium 142 mmol/L (137-145); Total Bilirubin 1.1 mg/dL (0.2-1.3); Total Protein 3.9 g/dL (6.3-8.2)
[2019-04-10] MEDS: POTASSIUM CHLORIDE 20 MEQ in WATER FOR INJECTION 1 100ML.BAG IVPB SCH ×2 (10:11→12:50)
[2019-04-10] MEDS: PANTOPRAZOLE 40 MG/10 ML VIAL IVP SCH (10:12)
[2019-04-10] MEDS: ENOXAPARIN 40 MG/0.4 ML SYRINGE SQ SCH (10:12)
--- NOTE | 2019-04-10 10:27 | P.PN ---
Progress Note - Text Progress Note Date: 04/10/19 Patient is feeling well. He had several bowel movements yesterday. On exam his vital signs are stable. His abdomen soft. Incision site is clean dry intact. Status post right colectomy for obstructing right colon cancer. Patient will have his diet slowly advanced.
--- NOTE | 2019-04-10 10:55 | P.PN ---
Subjective Progress Note Date: 04/10/19 79-year-old male one of my office patient with known for the last 7 years with past medical history of CLL, history of elevated blood pressure and BPH along with mild hyperlipidemia who has been doing well was moved to [facility] few years ago used to see all primary care and health care provider down at [facility]. Patient called this morning complaining of intractable pain with nausea for the last few days with no bowel movement become much worse symptoms located in the right lower quadrant area was instructed to bring him to the emergency department where was seen and evaluated at [facility] surprisingly abdominal CT came back with large mass in the right side with metastasis looks like stage IV colon cancer. Review his last colonoscopy from 2015 was negative for any polyp colitis or finding at the time. Patient also is going through bowel obstruction NG tube was inserted patient was seen general surgery in consultation with his temperature been elevated patient was started on Zosyn and Levaquin pain management IV fluid resuscitation and will be admitted to the hospital for the above problem. 04/05: Patient is scheduled for a right colectomy this afternoon with Dr. Romo. Patient inadvertently pulled out NG tube this morning. Pain is currently controlled. He has been maintained on Dilaudid as needed. He is currently on Levaquin and Zosyn. Patient has been afebrile, heart rate 107, blood pressure 113/54, pulse ox 95-98% on room air. 04/06: Patient is status post right colectomy and partial omentectomy completed yesterday by Dr. Romo. He is currently on Levaquin and Flagyl and a consult in place with Dr. Nixon. Patient was transferred to the intensive care unit and is followed by Dr. Montelongo for intensive care management. No NG tube in place. He denies any nausea or vomiting. Pain is currently controlled. Epidural is in place. Saavedra catheter remains in place. Temperature max 100.1, heart rate 100, blood pressure 101/60, pulse ox 96% on 2 L. White count is 5.4 and hemoglobin 9.1. 04/07: Patient remains in the intensive care unit. He has been afebrile, blood pressure low this morning at 88/44, pulse ox 96% on 3 L, heart rate in 80s to 90. Repeat lab work reveals a normal white count of 4.8, hemoglobin 8.1, BUN 20 and creatinine 0.88. Albumin 1.8, chloride 118 and CO2 20. Patient has epidural catheter still in place to be discontinued this morning. Saavedra catheter remains in place Patient was seen by Dr. Nixon and antibiotics are Levaquin, Flagyl and Zosyn. Patient denies any nausea or vomiting. He states his pain is controlled. He is currently nothing by mouth. He has not had a bowel movement. No NG tube in place. He is reaching 1000 ML's on incentive spirometry. vehicle monitor technician is a sinus rhythm. 04/08: Patient was moved out of the intensive care unit last night, his sitting up in bed in no apparent distress he denies any chest pain, he denies any shortness breath, he is using incentive spirometer and regular basis, , patient has a SOFTWARE SALES CONSULTANT in place, his pain is well controlled at this point in time. He is using ice chips. Still poor appetite. 04/09: Patient is urinating very well and he is having 2 large bowel movement today and he is urinating well we will Hep-Lock his IV at this time and we will continue with clear liquid diet for now. 04/10: Patient is sitting up in a chair in no apparent distress he continues to have significant anasarca in upper and lower extremity is as well as his scrotal area he was taken off IV fluids would be started on Lasix 40 mg IV push every 24 hours, continue to monitor the patient very closely continue with potassium replacement, continued activity continue with full liquid diet. Review of Systems CONSTITUTIONAL: Well-developed no acute respiratory distress. Denies fever, denies chills. EYES: No icterus sclerae, no conjunctivitis. EARS, NOSE, MOUTH, THROAT, and FACE: No sore throat, lymphadenopathy, carotid bruits or deformity. RESPIRATORY: No SOB cough or wheezes. CARDIOVASCULAR: No CP, Palpitation, PND, Orthopnea, or angina. GASTROINTESTINAL: abdominal pain controlled, no nausea vomiting. GENITOURINARY: Negative for Hematuria or UTI, no kidney stones. Saavedra in place INTEGUMENT/BREAST: Negative for any muscular injury with mild osteoarthritis.. HEMATOLOGIC/LYMPHATIC: history of CLL, mass was found today in the right MUSCULOSKELTAL: Negative for Myalgia or arthralgia. NEURLOGICAL: No LOC, Sz or syncope, blurred vision dizziness or abnormality. BEHAVIORAL/PSYCH: Negative. ENDOCRINE: Negative. Objective - Vital Signs Vital signs: Vital Signs Temp 97.4 F L 04/10/19 05:00 Pulse 77 04/10/19 05:00 Resp 16 04/10/19 05:00 BP 121/70 04/10/19 05:00 Pulse Ox 97 04/10/19 05:00 Intake & Output 04/09/19 04/10/19 04/10/19 18:59 06:59 18:59 Intake Total 840 Output Total 2 Balance -2 840 Weight 101 kg Intake: IV 100 Piperacillin-Tazobactam 3 100 .375 gm In Sodium Chloride 0.9% 100 ml @ 25 mls/hr IVPB Q8HR [facility] Rx# :[id number] Oral 740 Output: Urine 2 Other: Voiding Method Bedside Commode Bedside Commode Urinal Urinal # Voids 2 1 # Bowel Movements 1 - Exam General Appearance: Alert, cooperative, no distress, appears stated age. Patien t's is at bedside. Neck HEENT: Supple, no lymphadenopathy, no thyroid enlargement, no carotid b ruits. Lungs: Clear to auscultation without crackles or wheezes no rhonchi, no deformity. Chest Wall: Chest wall normal expansion with deep inspiration no tenderness and no deformity was found on exam, no costochondral pain or discomfort. Heart: Regular rate and rhythm, S1, S2 normal, no murmur, rub or gallop. Back: Symmetric, no curvature, ROM normal, no CVA tenderness. Abdomen: Wound VAC and abdominal binder in place. Hypoactive bowel sounds. Extremities: There is +2 edema no calf tenderness dorsalis pedis +2 bilaterally.. Skin: Skin color, texture, tugor normal, no rashe, significant edema the scrotal area. Neurologic: Alert oriented x3 cranial nerves II through XII intact, no motor deficit, no abnormal balance or gait. - Labs CBC & Chem 7: 04/10/19 06:42 04/10/19 06:42 Labs: Abnormal Lab Results - Last 24 Hours (Table) 04/09/19 04/10/19 04/10/19 Range/Units 06:52 06:42 06:42 RBC 4.02 L (4.30-5.90) m/uL Hgb 9.0 L 10.6 L (13.0-17.5) gm/dL Hct 29.3 L 34.3 L (39.0-53.0) % MCV 73.0 L 73.3 L (80.0-100.0) fL MCH 22.3 L 22.6 L (25.0-35.0) pg MCHC 30.6 L 30.8 L (31.0-37.0) g/dL RDW 16.7 H (11.5-15.5) % Lymphocytes # (Manual) 0.66 L (1.0-4.8) k/uL Potassium 3.2 L (3.5-5.1) mmol/L Chloride 118 H (98-107) mmol/L Carbon Dioxide 19 L (22-30) mmol/L Creatinine 0.65 L (0.66-1.25) mg/dL Glucose 105 H (74-99) mg/dL Calcium 7.6 L (8.4-10.2) mg/dL Total Protein 3.9 L (6.3-8.2) g/dL Albumin 2.1 L (3.5-5.0) g/dL Microbiology - Last 24 Hours (Table) 04/04/19 12:00 Blood Culture - Preliminary Blood No Growth after 120 hours Assessment and Plan Assessment: Assessment and plan: 1. Post operative day #5 status post right sided hemicolectomy due to a large colon cancer/mass with primary anastomosis. Patient is currently outside the intensive care unit continue with incentive spirometer continue supportive care, continue to monitor the patient very closely. Patient was seen by hematology oncology service the plan for systemic chemotherapy and immunotherapy is to be started down the line a month from now. 2. Abdominal pain secondary to bowel obstruction due to colonic cancer. Status post surgery pain is well-controlled today. 3. Acute blood loss anemia. Expected outcome of surgery. Monitor the patient's CBC. 4. Non-anion gap metabolic acidosis with hyperchloremia due to aggressive IV f luid resuscitation. Start the patient on Lasix 40 mg push every 24 hours. 5. History of CLL. Currently in remission. 6. DVT prophylaxis. Continue patient on Lovenox 40 mg subcutaneously every 24 hours. 7. GI prophylaxis. Continue patient on Protonix 40 mg push every 24 hours. 8. Prognosis is guarded. 9. Anasarca with scrotal edema. Start the patient on Lasix 40 mg IV push every 24 hours, apply knee-high CHEL hose, increase activity, advance diet. 10. Hypokalemia. Status post placement. Repeat BMP and magnesium tomorrow morning
[2019-04-10] MEDS: FUROSEMIDE 10 MG/ML 4 ML VIAL IV SCH (12:50)
--- NOTE | 2019-04-10 17:20 | PN ---
PROGRESS NOTE DATE OF SERVICE: 04/10/2019. REASON FOR FOLLOWUP: Ischemic cecum with secondary peritonitis. INTERVAL HISTORY: The patient is currently afebrile. Patient has been breathing comfortably. Denies having any chest pain or any cough. Abdominal pain is currently controlled. Right IJ has been discontinued. He did have a bowel movement. Tolerating his diet. PHYSICAL EXAMINATION: Blood pressure is 125/71 with a pulse of 75, temperature 97.8. He is 98% on room air. General description is an elderly male up in the chair in no distress. Respiratory system: Unlabored breathing. Clear to auscultation anteriorly. Heart S1, S2. Regular rate and rhythm. Abdomen soft, no tenderness. LABS: Hemoglobin is 10.8, white count 5.9, BUN of 14, creatinine 0.65. Blood culture has been negative. DIAGNOSTIC IMPRESSION AND PLAN: Patient with admission to hospital with constipation in this patient who did have a large right-sided colon tumor, status post right hemicolectomy with evidence of ischemic cecum and mucopurulent drainage. Currently covered with Zosyn. Will be transitioned to oral antibiotic on discharge. Continue supportive care. MMODL / IJN: [id number] /
[2019-04-11] MEDS: ENOXAPARIN 40 MG/0.4 ML SYRINGE SQ SCH (07:30)
[2019-04-11] MEDS: FUROSEMIDE 10 MG/ML 4 ML VIAL IV SCH (07:31)
[2019-04-11] MEDS: PIPERACILLIN-TAZOBACTAM 3.375 GM in SODIUM CHLORIDE 0.9% 100 ML IVPB SCH (07:31)
[2019-04-11] MEDS: PANTOPRAZOLE 40 MG/10 ML VIAL IVP SCH (07:31)
[2019-04-11 07:37] LABS: Anisocytosis Slight; Basophils % (A) 1 %; Eosinophils # (A) 0.2 k/uL (0-0.7); Eosinophils % (A) 4 %; HGB 10.8 gm/dL (13.0-17.5); Hypochromasia Marked; Lymphocytes # (A) 1.6 k/uL (1.0-4.8); Lymphocytes % (A) 27 %; MCH 22.3 pg (25.0-35.0); MCHC 30.1 g/dL (31.0-37.0); MCV 74.1 fL (80.0-100.0); Microcytosis Slight; Monocytes # (A) 0.3 k/uL (0-1.0); Monocytes % (A) 6 %; Neutrophils # (A) 3.4 k/uL (1.3-7.7); Neutrophils % (A) 60 %; Platelet Count 285 k/uL (150-450); RBC 4.85 m/uL (4.30-5.90); RDW 17.4 % (11.5-15.5); WBC 5.7 k/uL (3.8-10.6)
[2019-04-11 08:04] LABS: ALT 24 U/L (21-72); AST 36 U/L (17-59); Albumin 2.2 g/dL (3.5-5.0); Alkaline Phosphatase 113 U/L (38-126); Anion Gap 5 mmol/L; Blood Urea Nitrogen 12 mg/dL (9-20); Calcium 7.5 mg/dL (8.4-10.2); Carbon Dioxide 21 mmol/L (22-30); Chloride 113 mmol/L (98-107); Glucose 108 mg/dL (74-99); Magnesium 1.8 mg/dL (1.6-2.3); Potassium 3.3 mmol/L (3.5-5.1); Sodium 139 mmol/L (137-145); Total Bilirubin 0.8 mg/dL (0.2-1.3)
[2019-04-11] MEDS ORDERED: HYDROcodone/APAP 5-325MG 1 EACH TAB PO PRN (11:35)
--- NOTE | 2019-04-11 11:37 | P.PN ---
Subjective Progress Note Date: 04/11/19 CHIEF COMPLAINT: Colonic obstruction HISTORY OF PRESENT ILLNESS: 79-year-old male who underwent right colectomy, partial omentectomy, and duodenal biopsy with Dr. Romo secondary to colon mass on 04/05/19. Patient denies abdominal pain. Tolerating regular diet. Reports decreased appetite. Denies nausea or vomiting. Reports passing flatus and having BMs. PHYSICAL EXAM: VITAL SIGNS: Reviewed. GENERAL: Well-developed in no acute distress. HEENT: No sclera icterus. Extraocular movements grossly intact. Moist buccal mucosa. Head is atraumatic, normocephalic. ABDOMEN: Soft. Nondistended. PREVENA wound management system intact. Positive bowel sounds. NEUROLOGIC: Alert and oriented. Cranial nerves II through XII grossly intact. ASSESSMENT: 1. Abdominal pain 2. Acute large bowel obstruction, secondary to right colonic mass PLAN: 1. Continue diet 2. Pain control. DC Dilaudid. Will add [place] PRN. Tylenol PRN also ordered. 3. Incentive spirometry 4. Activity as tolerated 5. Await pathology report 6. Will DC Prevena tomorrow. Optifoam dressing ordered. Please leave at bedside for SERVICE PROVIDER to change dressing tomorrow Nurse practitioner note has been reviewed by physician. Signing provider agrees with the documented findings, assessment, and plan of care. Objective - Vital Signs Vital signs: Vital Signs Temp 98.3 F 04/11/19 05:00 Pulse 79 04/11/19 05:00 Resp 18 04/11/19 05:00 BP 124/70 04/11/19 05:00 Pulse Ox 97 04/11/19 05:00 Intake & Output 04/10/19 04/11/19 04/11/19 18:59 06:59 18:59 Intake Total 700 1120 Balance 700 1120 Weight 84.5 kg Intake: IV 50 100 Piperacillin-Tazobactam 3 50 100 .375 gm In Sodium Chloride 0.9% 100 ml @ 25 mls/hr IVPB Q8HR [facility] Rx# :[id number] Intake, IV Titration 200 Amount Potassium Chloride 20 meq 200 In Water For Injection 1 100ml.bag @ 50 mls/hr IVPB Q2H [facility] Rx#: [id number] Oral 450 1020 Other: Voiding Method Bedside Commode Toilet Urinal Urinal # Voids 3 3 # Bowel Movements 1 - Labs CBC & Chem 7: 04/11/19 07:15 04/11/19 07:15 Labs: Abnormal Lab Results - Last 24 Hours (Table) 04/11/19 04/11/19 Range/Units 07:15 07:15 Hgb 10.8 L (13.0-17.5) gm/dL Hct 36.0 L (39.0-53.0) % MCV 74.1 L (80.0-100.0) fL MCH 22.3 L (25.0-35.0) pg MCHC 30.1 L (31.0-37.0) g/dL RDW 17.4 H (11.5-15.5) % Potassium 3.3 L (3.5-5.1) mmol/L Chloride 113 H (98-107) mmol/L Carbon Dioxide 21 L (22-30) mmol/L Glucose 108 H (74-99) mg/dL Calcium 7.5 L (8.4-10.2) mg/dL Total Protein 4.0 L (6.3-8.2) g/dL Albumin 2.2 L (3.5-5.0) g/dL Microbiology - Last 24 Hours (Table) 04/04/19 12:00 Blood Culture - Final Blood No Growth after 144 hours
[2019-04-11] MEDS: POTASSIUM CHLORIDE ER 20 MEQ TAB.ER PO SCH ×2 (12:46→16:21)
--- NOTE | 2019-04-11 13:33 | P.PN ---
Subjective Progress Note Date: 04/11/19 79-year-old male one of my office patient with known for the last 7 years with past medical history of CLL, history of elevated blood pressure and BPH along with mild hyperlipidemia who has been doing well was moved to [facility] few years ago used to see all primary care and health care provider down at [facility]. Patient called this morning complaining of intractable pain with nausea for the last few days with no bowel movement become much worse symptoms located in the right lower quadrant area was instructed to bring him to the emergency department where was seen and evaluated at [facility] surprisingly abdominal CT came back with large mass in the right side with metastasis looks like stage IV colon cancer. Review his last colonoscopy from 2015 was negative for any polyp colitis or finding at the time. Patient also is going through bowel obstruction NG tube was inserted patient was seen general surgery in consultation with his temperature been elevated patient was started on Zosyn and Levaquin pain management IV fluid resuscitation and will be admitted to the hospital for the above problem. 04/05: Patient is scheduled for a right colectomy this afternoon with Dr. Romo. Patient inadvertently pulled out NG tube this morning. Pain is currently controlled. He has been maintained on Dilaudid as needed. He is currently on Levaquin and Zosyn. Patient has been afebrile, heart rate 107, blood pressure 113/54, pulse ox 95-98% on room air. 04/06: Patient is status post right colectomy and partial omentectomy completed yesterday by Dr. Romo. He is currently on Levaquin and Flagyl and a consult in place with Dr. Nixon. Patient was transferred to the intensive care unit and is followed by Dr. Montelongo for intensive care management. No NG tube in place. He denies any nausea or vomiting. Pain is currently controlled. Epidural is in place. Saavedra catheter remains in place. Temperature max 100.1, heart rate 100, blood pressure 101/60, pulse ox 96% on 2 L. White count is 5.4 and hemoglobin 9.1. 04/07: Patient remains in the intensive care unit. He has been afebrile, blood pressure low this morning at 88/44, pulse ox 96% on 3 L, heart rate in 80s to 90. Repeat lab work reveals a normal white count of 4.8, hemoglobin 8.1, BUN 20 and creatinine 0.88. Albumin 1.8, chloride 118 and CO2 20. Patient has epidural catheter still in place to be discontinued this morning. Saavedra catheter remains in place Patient was seen by Dr. Nixon and antibiotics are Levaquin, Flagyl and Zosyn. Patient denies any nausea or vomiting. He states his pain is controlled. He is currently nothing by mouth. He has not had a bowel movement. No NG tube in place. He is reaching 1000 ML's on incentive spirometry. monitor car operator is a sinus rhythm. 04/08: Patient was moved out of the intensive care unit last night, his sitting up in bed in no apparent distress he denies any chest pain, he denies any shortness breath, he is using incentive spirometer and regular basis, , patient has a TERRA COTTA MOLD MAKER in place, his pain is well controlled at this point in time. He is using ice chips. Still poor appetite. 04/09: Patient is urinating very well and he is having 2 large bowel movement today and he is urinating well we will Hep-Lock his IV at this time and we will continue with clear liquid diet for now. 04/10: Patient is sitting up in a chair in no apparent distress he continues to have significant anasarca in upper and lower extremity is as well as his scrotal area he was taken off IV fluids would be started on Lasix 40 mg IV push every 24 hours, continue to monitor the patient very closely continue with potassium replacement, continued activity continue with full liquid diet. 04/11: Patient is having bowel movements is up to the bathroom to urinate. Patient states that his breathing is a little bit better. He is currently on a regular diet and took Ensure as well as his diet this morning. Swelling is slightly improved. Patient will be continued on IV Lasix and IV fluids have been discontinued. Chest x-ray has been ordered for today. We will transition from Zosyn to Augmentin. Discussed with patient that he does not have a penicillin ALLERGY as he had thought. Review of Systems CONSTITUTIONAL: Well-developed no acute respiratory distress. Denies fever, denies chills. EYES: No icterus sclerae, no conjunctivitis. EARS, NOSE, MOUTH, THROAT, and FACE: No sore throat, lymphadenopathy, carotid bruits or deformity. RESPIRATORY: No SOB cough or wheezes. CARDIOVASCULAR: No CP, Palpitation, PND, Orthopnea, or angina. GASTROINTESTINAL: no abdominal pain, no nausea vomiting. GENITOURINARY: Negative for Hematuria or UTI, no kidney stones. Saavedra in place INTEGUMENT/BREAST: Negative for any muscular injury with mild osteoarthritis.. HEMATOLOGIC/LYMPHATIC: history of CLL, mass was found today in the right MUSCULOSKELTAL: Negative for Myalgia or arthralgia. NEURLOGICAL: No LOC, Sz or syncope, blurred vision dizziness or abnormality. BEHAVIORAL/PSYCH: Negative. ENDOCRINE: Negative. Objective - Vital Signs Vital signs: Vital Signs Temp 98.1 F 04/11/19 11:28 Pulse 84 04/11/19 11:28 Resp 17 04/11/19 11:28 BP 115/74 04/11/19 11:28 Pulse Ox 98 04/11/19 11:28 Intake & Output 04/10/19 04/11/19 04/11/19 18:59 06:59 18:59 Intake Total 700 1120 Balance 700 1120 Weight 84.5 kg Intake: IV 50 100 Piperacillin-Tazobactam 3 50 100 .375 gm In Sodium Chloride 0.9% 100 ml @ 25 mls/hr IVPB Q8HR [facility] Rx# :[id number] Intake, IV Titration 200 Amount Potassium Chloride 20 meq 200 In Water For Injection 1 100ml.bag @ 50 mls/hr IVPB Q2H [facility] Rx#: [id number] Oral 450 1020 Other: Voiding Method Bedside Commode Toilet Urinal Urinal # Voids 3 3 # Bowel Movements 1 - Exam General Appearance: Alert, cooperative, no distress, appears stated age. Patient's is at bedside. Neck HEENT: Supple, no lymphadenopathy, no thyroid enlargement, no carotid bruits. Lungs: Clear to auscultation without crackles or wheezes no rhonchi, no deformity. Chest Wall: Chest wall normal expansion with deep inspiration no tenderness and no deformity was found on exam, no costochondral pain or discomfort. Heart: Regular rate and rhythm, S1, S2 normal, no murmur, rub or gallop. Back: Symmetric, no curvature, ROM normal, no CVA tenderness. Abdomen: Wound VAC and abdominal binder in place. Hypoactive bowel sounds. Extremities: There is +2 edema no calf tenderness dorsalis pedis +2 bilaterally.. Skin: Skin color, texture, tugor normal, no rashe. Neurologic: Alert oriented x3 cranial nerves II through XII intact, no motor deficit, no abnormal balance or gait. - Labs CBC & Chem 7: 04/11/19 07:15 04/11/19 07:15 Labs: Abnormal Lab Results - Last 24 Hours (Table) 04/11/19 04/11/19 Range/Units 07:15 07:15 Hgb 10.8 L (13.0-17.5) gm/dL Hct 36.0 L (39.0-53.0) % MCV 74.1 L (80.0-100.0) fL MCH 22.3 L (25.0-35.0) pg MCHC 30.1 L (31.0-37.0) g/dL RDW 17.4 H (11.5-15.5) % Potassium 3.3 L (3.5-5.1) mmol/L Chloride 113 H (98-107) mmol/L Carbon Dioxide 21 L (22-30) mmol/L Glucose 108 H (74-99) mg/dL Calcium 7.5 L (8.4-10.2) mg/dL Total Protein 4.0 L (6.3-8.2) g/dL Albumin 2.2 L (3.5-5.0) g/dL Microbiology - Last 24 Hours (Table) 04/04/19 12:00 Blood Culture - Final Blood No Growth after 144 hours Assessment and Plan Plan: 1. Status post right sided hemicolectomy due to a large colon cancer/mass with primary anastomosis. Continue with incentive spirometer continue supportive care, continue to monitor the patient very closely. Patient was seen by hematology oncology service the plan for systemic chemotherapy and immunotherapy is to be started down the line a month from now. 2. Abdominal pain secondary to bowel obstruction and abdominal sepsis, ischemic cecum and secondary peritonitis due to colonic cancer. Status post surgery pain is well-controlled today. 3. Acute blood loss anemia. Expected outcome of surgery. Monitor the patient's CBC. 4. Non-anion gap metabolic acidosis with hyperchloremia due to aggressive IV fluid resuscitation. Start the patient on Lasix 40 mg push every 24 hours. 5. History of CLL. Currently in remission. 6. DVT prophylaxis. Continue patient on Lovenox 40 mg subcutaneously every 24 hours. 7. GI prophylaxis. Continue patient on Protonix 40 mg push every 24 hours. 8. Prognosis is guarded. 9. Anasarca with scrotal edema. Start the patient on Lasix 40 mg IV push every 24 hours, apply knee-high CHEL hose, increase activity, advance diet. 10. Hypokalemia. Status post placement. Repeat BMP and magnesium tomorrow morning CODE STATUS: Full code. Discharge plan: Home. Impression and plan of care have been directed as dictated by the signing physician. Dorina Ortega nurse practitioner acting as scribe for signing physician.
[2019-04-11 16:23] LABS: Iron Saturation 8.75 (15.00-50.00)
[2019-04-11 16:53] VITALS: BMI 26.7
--- NOTE | 2019-04-11 18:39 | PN ---
PROGRESS NOTE DATE OF SERVICE: 04/11/2019 REASON FOR FOLLOWUP: Ischemic bowel with right-sided colon tumor. INTERVAL HISTORY: The patient is currently afebrile. The patient has been breathing comfortably. Patient denies having any chest pain or cough. Abdominal pain is currently controlled. Has been tolerating a regular diet. No diarrhea. PHYSICAL EXAMINATION: Blood pressure 115/74 with a pulse of 84, temperature 98.1. He is 98% on room air. General description is an elderly male up in the chair in no distress. RESPIRATORY SYSTEM: Unlabored breathing. Clear to auscultation anteriorly. HEART: S1, S2. Regular rate and rhythm. ABDOMEN: Soft. No tenderness. LABS: Hemoglobin is 10 with a white count of 5.7, BUN of 12, creatinine 0.70. DIAGNOSTIC IMPRESSION AND PLAN: Patient with a right-sided colon tumor with significant distention of the cecum and concern about ischemic cecum and mucopurulent drainage, status post right hemicolectomy. Patient's antibiotic has been switched to oral Augmentin, to continue for about a week to finish course of therapy. Continue supportive care. MMODL / IJN: [id number] /
--- NOTE | 2019-04-11 19:19 | P.PN ---
Subjective Progress Note Date: 04/11/19 Principal diagnosis: Metastatic colon adenocarcinoma In follow-up today patient states he is beginning to tolerate soft foods, no nausea or vomiting appetite is fair, no difficulty breathing, cough, chest pain, unrealistic abdominal pain or distention, he is still wearing his abdominal binder. He states he did have a bowel movement, denies black or bloody stool Objective - Vital Signs Vital signs: Vital Signs Temp 98.1 F 04/11/19 11:28 Pulse 84 04/11/19 11:28 Resp 17 04/11/19 11:28 BP 115/74 04/11/19 11:28 Pulse Ox 98 04/11/19 11:28 Intake & Output 04/11/19 04/11/19 04/12/19 06:59 18:59 06:59 Intake Total 1120 760 Balance 1120 760 Weight 84.5 kg 84.5 kg Intake: IV 100 100 Piperacillin-Tazobactam 3 100 100 .375 gm In Sodium Chloride 0.9% 100 ml @ 25 mls/hr IVPB Q8HR [facility] Rx# :[id number] Oral 1020 660 Other: Voiding Method Toilet Toilet Urinal # Voids 3 3 # Bowel Movements 1 - Constitutional General appearance: Present: average body habitus, cooperative, no acute distress - EENT Eyes: Present: anicteric sclerae, EOMI, normal appearance ENT: Present: hearing grossly normal, normal oropharynx - Respiratory Respiratory: bilateral: CTA - Cardiovascular Rhythm: regular Heart sounds: normal: S1, S2 Abnormal Heart Sounds: Absent: systolic murmur, diastolic murmur, rub, S3 Gallop, S4 Gallop, click, other - Peripheral edema leg Peripheral Edema: bilateral: None - Gastrointestinal General gastrointestinal: Present: normal bowel sounds, soft - Neurologic Neurologic: Present: CNII-XII intact - Musculoskeletal Musculoskeletal: Present: generalized weakness, strength equal bilaterally - Psychiatric Psychiatric: Present: A&O x's 3, appropriate affect, intact judgment & insight - Labs CBC & Chem 7: 04/11/19 07:15 04/11/19 07:15 Labs: Abnormal Lab Results - Last 24 Hours (Table) 04/11/19 04/11/19 04/11/19 Range/Units 07:15 07:15 07:15 Hgb 10.8 L (13.0-17.5) gm/dL Hct 36.0 L (39.0-53.0) % MCV 74.1 L (80.0-100.0) fL MCH 22.3 L (25.0-35.0) pg MCHC 30.1 L (31.0-37.0) g/dL RDW 17.4 H (11.5-15.5) % Potassium 3.3 L (3.5-5.1) mmol/L Chloride 113 H (98-107) mmol/L Carbon Dioxide 21 L (22-30) mmol/L Glucose 108 H (74-99) mg/dL Calcium 7.5 L (8.4-10.2) mg/dL Iron 21 L (65-175) ug/dL Iron Saturation 8.75 L (15.00-50.00) Total Protein 4.0 L (6.3-8.2) g/dL Albumin 2.2 L (3.5-5.0) g/dL Vitamin B12 1405.0 H (200.0-944.0) pg/mL Assessment and Plan (1) Bowel obstruction Narrative/Plan: Status post resection. Patient has had bowel movements. Less abdominal discomfort. Current Visit: Yes Status: Acute Priority: High Code(s): K56.609 - UNSP INTESTNL OBST, UNSP TO PARTIAL VERSUS COMPLETE OBST SNOMED Code(s): 50025367 (2) Microcytic hypochromic anemia Narrative/Plan: Most likely related to friability of gastrointestinal mass and chronic GI blood loss. Iron studies will be ordered (they were not ordered as previously dictated). Current Visit: Yes Status: Acute Priority: Medium Code(s): D50.9 - IRON DEFICIENCY ANEMIA, UNSPECIFIED SNOMED Code(s): 53106512 (3) CLL (chronic lymphocytic leukemia) Current Visit: No Status: Chronic Priority: Low Code(s): C91.90 - LYMPHOID LEUKEMIA, UNSPECIFIED NOT HAVING ACHIEVED REMISSION SNOMED Code(s): 67304349 (4) Colon adenocarcinoma Narrative/Plan: Moderately differentiated stage IV colon adenocarcinoma status post resection for right obstructing colon mass, liver lesions. Surgery on 04/05/2019. K-aliza, NRAS and MSI testing requested. Follow-up with Dr. Watkins in 4-5 weeks postop to discuss palliative treatment options. I reviewed patient's questions and concerns regarding his malignancy diagnosis. As expected, he is distressed by this. I encouraged patient to focus on improving his oral intake and regaining his strength post operatively. He verbalized understanding and will focus his energy is towards the same. He was encouraged to write down any questions he may have. I will continue to follow with him while inpatient as needed. Current Visit: Yes Status: Acute Priority: High Code(s): C18.9 - MALIGNANT NEOPLASM OF COLON, UNSPECIFIED SNOMED Code(s): 433136171
[2019-04-11] MEDS: AMOXIC-POT CLAV 875-125MG 1 EACH TAB PO SCH (20:32)
--- NOTE | 2019-04-11 21:48 | XR ---
EXAMINATION: XR chest 2V DATE AND TIME: 04/11/2019 4:57 PM CLINICAL INDICATION: PHH; shortness of breath TECHNIQUE: Departmental protocol COMPARISON: 04/05/2019 FINDINGS: The lungs are predominantly well expanded and clear, but there is a prominent 6 cm mean diameter righ t infrahilar consolidative opacity. Follow-up radiographs are suggested and will clarify this finding . The pleural spaces are partial negative. The cardiac silhouette is borderline enlarged. The skeletal structures and soft tissues are negative for acute findings. IMPRESSION: Right lower lobe consolidation not seen on prior study.
--- NOTE | 2019-04-12 09:17 | P.DS ---
Providers Date of admission: 04/04/19 13:39 Expected date of discharge: 04/12/19 Attending physician: Jacob Welch Consults: 04/04/19 13:39 Consult Physician Routine Consulting Provider: Junie Montelongo Consult Reason/Comments: colonic mass, high grade obstruction Do you want consulting provider notified?: Yes 04/04/19 19:16 Consult Physician Routine Consulting Provider: Beto Watkins Consult Reason/Comments: Colon cancer witrh Mets Do you want consulting provider notified?: Yes 04/05/19 17:32 Consult Physician Routine Consulting Provider: Cleopatra Nixon Consult Reason/Comments: Obstructing colon cancer Do you want consulting provider notified?: Yes 04/05/19 19:13 Consult Physician Routine Consulting Provider: Arsen Romo Consult Reason/Comments: small bowel obstruction Do you want consulting provider notified?: Already Contacted Primary care physician: [facility] Course: 79-year-old male one of my office patient with known for the last 7 years with past medical history of CLL, history of elevated blood pressure and BPH along with mild hyperlipidemia who has been doing well was moved to [facility] few years ago used to see all primary care and health care provider down at [facility]. Patient called this morning complaining of intractable pain with nausea for the last few days with no bowel movement become much worse symptoms located in the right lower quadrant area was instructed to bring him to the emergency department where was seen and evaluated at [facility] surprisingly abdominal CT came back with large mass in the right side with metastasis looks like stage IV colon cancer. Review his last colonoscopy from 2015 was negative for any polyp colitis or finding at the time. Patient also is going through bowel obstruction NG tube was inserted patient was seen general surgery in consultation with his temperature been elevated patient was started on Zosyn and Levaquin pain management IV fluid resuscitation and will be admitted to the hospital for the above problem. 04/05: Patient is scheduled for a right colectomy this afternoon with Dr. Romo. Patient inadvertently pulled out NG tube this morning. Pain is currently controlled. He has been maintained on Dilaudid as needed. He is currently on Levaquin and Zosyn. Patient has been afebrile, heart rate 107, blood pressure 113/54, pulse ox 95-98% on room air. 04/06: Patient is status post right colectomy and partial omentectomy completed yesterday by Dr. Romo. He is currently on Levaquin and Flagyl and a consult in place with Dr. Nixon. Patient was transferred to the intensive care unit and is followed by Dr. Montelongo for intensive care management. No NG tube in place. He denies any nausea or vomiting. Pain is currently controlled. Epidural is in place. Saavedra catheter remains in place. Temperature max 100.1, heart rate 100, blood pressure 101/60, pulse ox 96% on 2 L. White count is 5.4 and hemoglobin 9.1. 04/07: Patient remains in the intensive care unit. He has been afebrile, blood pressure low this morning at 88/44, pulse ox 96% on 3 L, heart rate in 80s to 90. Repeat lab work reveals a normal white count of 4.8, hemoglobin 8.1, BUN 20 and creatinine 0.88. Albumin 1.8, chloride 118 and CO2 20. Patient has epidural catheter still in place to be discontinued this morning. Saavedra catheter remains in place Patient was seen by Dr. Nixon and antibiotics are Levaquin, Flagyl and Zosyn. Patient denies any nausea or vomiting. He states his pain is controlled. He is currently nothing by mouth. He has not had a bowel movement. No NG tube in place. He is reaching 1000 ML's on incentive spirometry. front desk monitor is a sinus rhythm. 04/08: Patient was moved out of the intensive care unit last night, his sitting up in bed in no apparent distress he denies any chest pain, he denies any shortness breath, he is using incentive spirometer and regular basis, , patient has a TOOLROOM ATTENDANT in place, his pain is well controlled at this point in time. He is using ice chips. Still poor appetite. 04/09: Patient is urinating very well and he is having 2 large bowel movement today and he is urinating well we will Hep-Lock his IV at this time and we will continue with clear liquid diet for now. 04/10: Patient is sitting up in a chair in no apparent distress he continues to have significant anasarca in upper and lower extremity is as well as his scrotal area he was taken off IV fluids would be started on Lasix 40 mg IV push every 24 hours, continue to monitor the patient very closely continue with potassium replacement, continued activity continue with full liquid diet. 04/11: Patient is having bowel movements is up to the bathroom to urinate. Patient states that his breathing is a little bit better. He is currently on a regular diet and took Ensure as well as his diet this morning. Swelling is slightly improved. Patient will be continued on IV Lasix and IV fluids have been discontinued. Chest x-ray has been ordered for today. We will transition from Zosyn to Augmentin. Discussed with patient that he does not have a penicillin ALLERGY as he had thought. 04/12: Patient remains afebrile, blood pressure 102/63, heart rate 80, pulse ox 97% on room air. Vitamin B12 1405, iron 21, TIBC 240, iron saturation 8.75, ferritin 102.7. CEA 15.7. Patient is agreeable to go to subacute rehab. General surgery has a dressed wound care and suture removal. Patient denies any new complaints. Pain is controlled. Patient had irregular heart rate and EKG was evaluated but no atrial fibrillation. Patient is cleared for discharge. Patient will be discharged today in stable condition once all arrangements are completed. Discharge diagnoses: 1. Status post right sided hemicolectomy due to a large colon cancer/mass with primary anastomosis. 2. Abdominal pain secondary to bowel obstruction and abdominal sepsis, ischemic cecum and secondary peritonitis due to colonic cancer, all present on admission. 3. Acute blood loss anemia. Expected outcome of surgery. 4. Non-anion gap metabolic acidosis with hyperchloremia due to aggressive IV fluid resuscitation. 5. History of CLL. Currently in remission. 6. Anasarca with scrotal edema secondary to aggressive IV fluid resuscitation. 7. Hypokalemia. [facility]. Impression and plan of care have been directed as dictated by the signing physician. Dorina Ortega nurse practitioner acting as scribe for signing physician. Patient Condition at Discharge: Good Plan - Discharge Summary Discharge Rx Participant: Yes New Discharge Prescriptions: New Amoxic-Pot Clav 875-125Mg [Augmentin 875-125] 1 each PO Q12HR #20 tab HYDROcodone/APAP 5-325MG [[place] 5-325] 1 each PO Q4HR PRN #18 tab PRN Reason: MODERATE Pain Acetaminophen Tab [Tylenol] 650 mg PO Q6HR PRN tab PRN Reason: Mild Pain Or Fever >= 100.5 Continue Multivitamins, Thera [Multivitamin (formulary)] 1 tab PO DAILY@1200 Aspirin [Adult Low Dose Aspirin EC] 81 mg PO Q7DAYS Ascorbic Acid [Vitamin C] 500 mg PO DAILY@1200 Bifidobacterium Infantis [Align] 4 mg PO HS Discharge Medication List Ascorbic Acid [Vitamin C] 500 mg PO DAILY@1200 03/02/16 [History] Aspirin [Adult Low Dose Aspirin EC] 81 mg PO Q7DAYS 03/02/16 [History] Multivitamins, Thera [Multivitamin (formulary)] 1 tab PO DAILY@1200 03/02/16 [History] Bifidobacterium Infantis [Align] 4 mg PO HS 04/04/19 [History] Acetaminophen Tab [Tylenol] 650 mg PO Q6HR PRN tab 04/12/19 [Rx] Amoxic-Pot Clav 875-125Mg [Augmentin 875-125] 1 each PO Q12HR #20 tab 04/12/19 [Rx] HYDROcodone/APAP 5-325MG [Godley 5-325] 1 each PO Q4HR PRN #18 tab 04/12/19 [Rx] Follow up Appointment(s)/Referral(s): Beto Watkins MD [STAFF PHYSICIAN] - 3 Weeks Jacob Welch MD [Primary Care Provider] - 1 Week Arsen Romo MD [STAFF PHYSICIAN] - 1 Week Activity/Diet/Wound Care/Special Instructions: Tylenol PRN for pain Optifoam dressing placed on 04/12/2019. May remove in 4 days (or sooner if saturated) Abdominal binder for comfort [place] may be removed on April 19, 2019 or at follow up appointment with Dr. Romo. Place steri strips to incision. Discharge Disposition: TRANSFER TO SNF/ECF
[2019-04-12] MEDS: FUROSEMIDE 10 MG/ML 4 ML VIAL IV SCH (10:24)
[2019-04-12] MEDS: PANTOPRAZOLE 40 MG/10 ML VIAL IVP SCH (10:24)
[2019-04-12] MEDS: ENOXAPARIN 40 MG/0.4 ML SYRINGE SQ SCH (10:25)
[2019-04-12] MEDS: AMOXIC-POT CLAV 875-125MG 1 EACH TAB PO SCH (10:25)
--- NOTE | 2019-04-12 10:59 | P.PN ---
Subjective Progress Note Date: 04/12/19 CHIEF COMPLAINT: Colonic obstruction HISTORY OF PRESENT ILLNESS: 79-year-old male who underwent right colectomy, partial omentectomy, and duodenal biopsy with Dr. Romo secondary to colon mass on 04/05/19. Patient denies abdominal pain. Tolerating regular diet. Denies nausea or vomiting. Reports passing flatus and having BMs. pathology report positive for adenocarcinoma. oncology following. PHYSICAL EXAM: VITAL SIGNS: Reviewed. GENERAL: Well-developed in no acute distress. HEENT: No sclera icterus. Extraocular movements grossly intact. Moist buccal mucosa. Head is atraumatic, normocephalic. ABDOMEN: Soft. Nondistended. PREVENA wound management system intact. Positive bowel sounds. NEUROLOGIC: Alert and oriented. Cranial nerves II through XII grossly intact. ASSESSMENT: 1. Abdominal pain 2. Acute large bowel obstruction, secondary to right colonic mass PLAN: 1. Continue diet 2. Tylenol PRN for pain 3. Incentive spirometry 4. Activity as tolerated 5. Stable for discharge from a surgical standpoint 6. Abdominal binder for comfort 7. PREVENA DC. Optifoam placed. Continue optifoam for 4 days unless saturated 8. Mayer to be removed April [facility] at [facility] or at follow up appointment with Dr. Romo Nurse practitioner note has been reviewed by physician. Signing provider agrees with the documented findings, assessment, and plan of care. Objective - Vital Signs Vital signs: Vital Signs Temp 97.5 F L 04/12/19 05:00 Pulse 80 04/12/19 05:00 Resp 18 04/12/19 10:05 BP 102/63 04/12/19 05:00 Pulse Ox 97 04/12/19 05:00 Intake & Output 04/11/19 04/12/19 04/12/19 18:59 06:59 18:59 Intake Total 760 960 Balance 760 960 Weight 84.5 kg Intake: IV 100 Piperacillin-Tazobactam 3 100 .375 gm In Sodium Chloride 0.9% 100 ml @ 25 mls/hr IVPB Q8HR [facility] Rx# :[id number] Oral 660 960 Other: Voiding Method Toilet Toilet Toilet # Voids 3 2 - Labs CBC & Chem 7: 04/11/19 07:15 04/11/19 07:15 Labs: Abnormal Lab Results - Last 24 Hours (Table) 04/11/19 04/11/19 Range/Units 07:15 07:15 Iron 21 L (65-175) ug/dL Iron Saturation 8.75 L (15.00-50.00) Vitamin B12 1405.0 H (200.0-944.0) pg/mL RBC Folate 1,155 H (280 - 791) ng/mL
[2019-04-12 12:10] VITALS: BP 117/69; PULSE 91; RESP 17; TEMP 97.8
--- NOTE | 2019-04-12 15:26 | PN ---
PROGRESS NOTE DATE OF SERVICE: 04/12/2019 REASON FOR FOLLOWUP: Ischemic cecum with the component of peritonitis and right-sided colon tumor. INTERVAL HISTORY: The patient is currently afebrile. The patient has been breathing comfortably. Patient denies having any chest pain or any cough. No abdominal pain. No nausea, vomiting. Did have a bowel movement. PHYSICAL EXAMINATION: Blood pressure is 117/57 with a pulse of 91, temperature of 97.8. He is 95% on room air. General description is an elderly male, lying in bed in no distress. RESPIRATORY SYSTEM: Unlabored breathing, clear to auscultation anteriorly. HEART: S1, S2. Regular rate and rhythm. ABDOMEN: Soft, no tenderness. LABS: No CBC was done today. Chest x-ray completed yesterday with some right lower lobe consolidation.. DIAGNOSTIC IMPRESSION AND PLAN: Patient admitted to the hospital with abdominal pain. He did have a right-sided colon mass with ischemic distention of the cecum, status post right hemicolectomy. The patient did have overall improvement on Zosyn currently on Augmentin to continue for about 5-7 days to finish a course of therapy with close outpatient followup. Continue supportive care. MMODL / IJN: [id number] /
== END 2019-04-12 15:52 | DRG 853 ==
LOC: EC 09:47 → 3NMEDONC 13:39 → 2SICU 04-05 18:27 → 3NMEDONC 04-08 00:38
PROVIDERS: ADMIT Internal Medicine Geriatric Medicine; ATTEND Internal Medicine Geriatric Medicine
PROC: 0D9670Z Drainage of Stomach with Drainage Device, Via Natural or Artificial Opening (ICD-10-PCS; 2019-04-04)
PROC: 0DBU0ZZ Excision of Omentum, Open Approach (ICD-10-PCS; 2019-04-05)
PROC: 0DTF0ZZ Resection of Right Large Intestine, Open Approach (ICD-10-PCS; principal; 2019-04-05 08:35)
DX: A41.9 Sepsis, unspecified organism (principal); K65.0 Generalized (acute) peritonitis; K56.609 Unspecified intestinal obstruction, unspecified as to partial versus complete obstruction; C18.2 Malignant neoplasm of ascending colon; C91.11 Chronic lymphocytic leukemia of B-cell type in remission; C78.7 Secondary malignant neoplasm of liver and intrahepatic bile duct; D62 Acute posthemorrhagic anemia; E87.2 Acidosis; K55.9 Vascular disorder of intestine, unspecified; E87.8 Other disorders of electrolyte and fluid balance, not elsewhere classified; E87.6 Hypokalemia; I10 Essential (primary) hypertension; D50.9 Iron deficiency anemia, unspecified; N40.0 Benign prostatic hyperplasia without lower urinary tract symptoms; E78.5 Hyperlipidemia, unspecified; N50.89 Other specified disorders of the male genital organs; R60.1 Generalized edema; Z79.82 Long term (current) use of aspirin; Z79.899 Other long term (current) drug therapy; Z87.891 Personal history of nicotine dependence; Z86.010 Personal history of colon polyps; Z87.19 Personal history of other diseases of the digestive system; Z98.890 Other specified postprocedural states; Z98.52 Vasectomy status; Z88.0 Allergy status to penicillin; Z88.2 Allergy status to sulfonamides; Z91.048 Other nonmedicinal substance allergy status; Z80.3 Family history of malignant neoplasm of breast; Z82.49 Family history of ischemic heart disease and other diseases of the circulatory system; Z80.7 Family history of other malignant neoplasms of lymphoid, hematopoietic and related tissues
CPT/HCPCS: 36415; 71045; 71046; 74177; 80053; 81001; 82150; 82378; 82607; 82728; 82747; 83540; 83550; 83605; 83690; 83735; 84132; 85025; 85027; 85610; 86850; 86900; 86901; 87040; 88305; 88309; 93005; 96361; 96365; 96366; 96367; 96368; 99285

== ENCOUNTER 2019-07-17 08:29 | Inpatient (IN) | payer MEDICARE ==
[2019-07-17] MEDS ORDERED: SODIUM CHLORIDE 0.9% 500 ML 500 ML IV STA ×2 (08:50→08:54)
[2019-07-17] MEDS ORDERED: METOCLOPRAMIDE 5 MG/ML 2 ML VIAL IVP STA (08:50)
[2019-07-17] MEDS ORDERED: FAMOTIDINE 20 MG/2 ML VIAL IV STA (08:50)
--- NOTE | 2019-07-17 08:54 | ED ---
General Adult HPI - General Chief complaint: Nausea/Vomiting/Diarrhea Stated complaint: Vomiting Time Seen by Provider: 07/17/19 08:35 Source: patient, RN notes reviewed Mode of arrival: wheelchair Limitations: no limitations - History of Present Illness Initial comments: Patient is a pleasant 79-year-old male presenting to the emergency Department with complaints of nausea and vomiting. Onset of symptoms was yesterday. Patient is on oral chemotherapy for colon cancer however was unable to take his medication yesterday. Patient has vomited more than 7 or 8 times. Patient has continued nausea. Patient has had some hiccups as well. Patient feels like there is some phlegm in the back of his throat. No fevers. No abdominal pain. - Related Data Home Medications Medication Instructions Recorded Confirmed Calcium Carb/Magnesium Hydrox 1 tab PO DAILY PRN 07/17/19 07/17/19 [Rolaids Chewable Tablet] Capecitabine [Xeloda] 500 mg PO QID 07/17/19 07/17/19 Loperamide HCl [Imodium A-D] 2 mg PO DAILY PRN 07/17/19 07/17/19 Triamcinolone 0.1% Cream [Kenalog 1 applicatio TOPICAL TID PRN 07/17/19 07/17/19 0.1% Cream] Allergies Allergy/AdvReac Type Severity Reaction Status Date / Time Penicillins Allergy Swelling Verified 07/17/19 08:56 Sulfa (Sulfonamide Allergy Rash/Hives Verified 07/17/19 08:56 Antibiotics) Review of Systems ROS Statement: Those systems with pertinent positive or pertinent negative responses have been documented in the HPI. ROS Other: All systems not noted in ROS Statement are negative. Constitutional: Denies: fever Eyes: Denies: eye pain ENT: Denies: ear pain Respiratory: Denies: cough, dyspnea Cardiovascular: Denies: chest pain Endocrine: Denies: fatigue Gastrointestinal: Reports: nausea, vomiting. Denies: abdominal pain, diarrhea, constipation Genitourinary: Denies: dysuria Musculoskeletal: Denies: back pain Skin: Denies: rash Neurological: Denies: weakness Past Medical History Past Medical History: Cancer, Hyperlipidemia, Hypertension Additional Past Medical History / Comment(s): hx of CLL, DX 2000, follows up at [facility], seasonal allergies, hx polyps, hx hemorrhoids, colon cancer History of Any Multi-Drug Resistant Organisms: None Reported Past Surgical History: Hernia Repair, Tonsillectomy Additional Past Surgical History / Comment(s): colonoscopy, vasectomy, polypectomy Past Anesthesia/Blood Transfusion Reactions: No Reported Reaction Past Psychological History: No Psychological Hx Reported Smoking Status: Former smoker Past Alcohol Use History: None Reported Past Drug Use History: None Reported - Past Family History Mother Family Medical History: Cancer Additional Family Medical History / Comment(s): breast Son(s) Family Medical History: Cancer, Coronary Artery Disease (CAD), Myocardial Infarction (IA) Additional Family Medical History / Comment(s): non hodgkins lymphoma, General Exam Limitations: no limitations General appearance: alert, in no apparent distress Head exam: Present: normocephalic Eye exam: Present: normal appearance, PERRL ENT exam: Present: normal oropharynx Neck exam: Present: normal inspection Respiratory exam: Present: normal lung sounds bilaterally Cardiovascular Exam: Present: regular rate, normal rhythm GI/Abdominal exam: Present: soft. Absent: distended, tenderness, guarding, rebound Extremities exam: Present: normal inspection Neurological exam: Present: alert Psychiatric exam: Present: normal affect, normal mood Skin exam: Present: normal color Course Vital Signs 07/17/19 08:32 Temperature 97.3 F L Pulse Rate 119 H Respiratory 18 Rate Blood Pressure 113/70 O2 Sat by Pulse 99 Oximetry - Reevaluation(s) Reevaluation #1: 07/17/19 11:34 Patient reevaluated. Patient and family updated. Dr. cast has been paged for admission. Medical Decision Making - Lab Data Result diagrams: 07/17/19 09:05 07/17/19 09:05 Lab Results 07/17/19 07/17/19 Range/Units 09:05 09:05 WBC 9.5 (3.8-10.6) k/uL RBC 5.54 (4.30-5.90) m/uL Hgb 14.3 (13.0-17.5) gm/dL Hct 42.9 (39.0-53.0) % MCV 77.4 L (80.0-100.0) fL MCH 25.8 (25.0-35.0) pg MCHC 33.3 (31.0-37.0) g/dL RDW 24.3 H (11.5-15.5) % Plt Count 283 (150-450) k/uL Neutrophils % 75 % Lymphocytes % 16 % Monocytes % 7 % Eosinophils % 1 % Basophils % 0 % Neutrophils # 7.1 (1.3-7.7) k/uL Lymphocytes # 1.5 (1.0-4.8) k/uL Monocytes # 0.7 (0-1.0) k/uL Eosinophils # 0.1 (0-0.7) k/uL Basophils # 0.0 (0-0.2) k/uL Anisocytosis Marked Microcytosis Moderate Sodium 138 (137-145) mmol/L Potassium 3.6 (3.5-5.1) mmol/L Chloride 95 L (98-107) mmol/L Carbon Dioxide 34 H (22-30) mmol/L Anion Gap 9 mmol/L BUN 20 (9-20) mg/dL Creatinine 0.82 (0.66-1.25) mg/dL Est GFR (CKD-EPI)AfAm >90 (>60 ml/min/1.73 sqM) Est GFR (CKD-EPI)NonAf 84 (>60 ml/min/1.73 sqM) Glucose 136 H (74-99) mg/dL Calcium 9.5 (8.4-10.2) mg/dL Total Bilirubin 2.7 H (0.2-1.3) mg/dL AST 37 (17-59) U/L ALT 39 (21-72) U/L Alkaline Phosphatase 308 H (38-126) U/L Total Protein 5.5 L (6.3-8.2) g/dL Albumin 3.4 L (3.5-5.0) g/dL Amylase 103 (30-110) U/L Lipase 235 (23-300) U/L - Radiology Data Radiology results: report reviewed (Computed tomography scan of the abdomen pelvis shows high-grade small bowel obstruction secondary to mesenteric, likely metastatic or invasive colon carcinoma, mass possibly invading small bowel tethering the mesentery. Diffuse thickening of the gastric antrum and multifocal thickening of the small bowel. Mesenteric congestion and trace ascites. Hepatic masses.Studies masses. Metastatic abdominal and pelvic lymph nodes.), image reviewed (Abdominal x-ray shows findings concerning for ileus or obstruction.) Disposition Clinical Impression: Small bowel obstruction Disposition: ADMITTED IP TO THIS [facility] Condition: Serious Is patient prescribed a controlled substance at d/c from ED?: No Referrals: Jacob Cast MD [Primary Care Provider] - 1-2 days Decision Time: 11:34
--- NOTE | 2019-07-17 09:25 | XR ---
EXAMINATION TYPE: XR KUB DATE OF EXAM: 07/17/2019 9:19 AM CLINICAL HISTORY: Prior colonic mass. Current abdominal pain. TECHNIQUE: Single upright image of the abdomen is obtained. COMPARISON: CT dated 04/04/2019. FINDINGS: There are differential air-fluid levels in the left mid abdomen and paucity of bowel gas in the right mid abdomen. There appears to be sutures within the right abdomen overlying the renal shad ow. Lung bases are well aerated. No gross evidence of pneumoperitoneum. Osseous structures appear int act. IMPRESSION: Findings either related to small bowel ileus or obstruction. No pneumoperitoneum. Large r ight colonic mass was noted on the prior CT of 04/04/2019.
[2019-07-17 09:33] LABS: Anisocytosis Marked; Basophils % (A) 0 %; Eosinophils # (A) 0.1 k/uL (0-0.7); Eosinophils % (A) 1 %; HCT 42.9 % (39.0-53.0); HGB 14.3 gm/dL (13.0-17.5); Lymphocytes # (A) 1.5 k/uL (1.0-4.8); Lymphocytes % (A) 16 %; MCH 25.8 pg (25.0-35.0); MCHC 33.3 g/dL (31.0-37.0); MCV 77.4 fL (80.0-100.0); Mean Platelet Volume 7.8; Microcytosis Moderate; Monocytes # (A) 0.7 k/uL (0-1.0); Monocytes % (A) 7 %; Neutrophils # (A) 7.1 k/uL (1.3-7.7); Neutrophils % (A) 75 %; Platelet Count 283 k/uL (150-450); RBC 5.54 m/uL (4.30-5.90); RDW 24.3 % (11.5-15.5); WBC 9.5 k/uL (3.8-10.6)
[2019-07-17 09:45] LABS: ALT 39 U/L (21-72); AST 37 U/L (17-59); African American GFR (CKD) >90 (>60 ml/min/1.73 sqM); Albumin 3.4 g/dL (3.5-5.0); Alkaline Phosphatase 308 U/L (38-126); Amylase 103 U/L (30-110); Anion Gap 9 mmol/L; Blood Urea Nitrogen 20 mg/dL (9-20); Calcium 9.5 mg/dL (8.4-10.2); Carbon Dioxide 34 mmol/L (22-30); Chloride 95 mmol/L (98-107); Glucose 136 mg/dL (74-99); Potassium 3.6 mmol/L (3.5-5.1); Sodium 138 mmol/L (137-145); Total Bilirubin 2.7 mg/dL (0.2-1.3); Total Protein 5.5 g/dL (6.3-8.2)
--- NOTE | 2019-07-17 10:55 | CT ---
EXAMINATION TYPE: CT abdomen pelvis w con DATE OF EXAM: 07/17/2019 COMPARISON: CT dated 04/04/2019 HISTORY: Uncontrolled nausea, vomiting post chemo CT DLP: 798.7 mGycm Automated exposure control for dose reduction was used. TECHNIQUE: Helical acquisition of images was performed from the lung bases through the pelvis. CONTRAST: Performed without Oral Contrast and with IV Contrast, patient injected with 100 mL of Isovue 300. FINDINGS: LUNG BASES: Linear bandlike scarring at the right lung base and multifocal subsegmental atelectasis i s seen with questionable atelectasis versus early pulmonary nodule development in the right middle lo be on image 7 of the lung algorithm for which surveillance is recommended. Trace pleural effusions ar e also seen, new. LIVER/GB: Innumerable hypoattenuated hepatic lesions are seen again representing metastasis. The larg est lesion measures approximately 2.3 x 2.1 cm, slightly progressed from the prior of 04/04/2019 when this measured approximately 2.3 x 1.7 cm. This is seen within segment 8 and marked on image 21. Sple cesario varices are seen although the visualized portal venous system appears grossly patent at this time . Intrahepatic IVC is diminutive. PANCREAS: Ill-defined pancreatic head as described above with pancreatic body and tail atrophy. No di screte ductal dilatation at this time. SPLEEN: Enlarged measuring 14.4 cm in transverse dimension with splenic varices noted. ADRENALS: No discrete adrenal mass however periadrenal adenopathy is noted. KIDNEYS: No hydronephrosis of either kidney. FREE AIR: No pneumoperitoneum at this time. ADENOPATHY: Numerous retroperitoneal morphologically abnormal and enlarged lymph nodes are seen with the largest conglomeration in the periaortic space partially surrounding the aorta measuring approxi mately 1.8 x 3.1 cm on image 45. URINARY BLADDER: Incompletely distended with curvilinear high density along the right base that may relate to excreted contrast from a prior recent CT at an outside institution or more likely calcifica tions. OSSEOUS STRUCTURES: Multifocal degenerative disc disease with suspicious lesion at T12, new from the prior and degenerative disc disease most pronounced at L5-S1. T12 lesion measures approximately 2.0 cm with additional subcentimeter suspicious lesion of L3a. BOWEL: There is fluid in the distal esophagus and a small hiatal hernia with fluid throughout the di lated stomach. There is bowel wall thickening of the descending duodenum with adjacent ill-defined ma ss between the duodenum and head of the pancreas on image 42, possibly adenopathy given the abutting below peritoneal mass adjacent to the wall thickened right lateral aspect of the transverse portion o f the duodenum. This measures 4.0 x 3.7 cm. The downstream small bowel including the jejunum and prox imal ileum are dilated with surrounding mesenteric edema. Small bowel loops measure up to 4.5 cm and are fluid-filled with air-fluid levels seen. Small multiple bowel loops appear to converge at the per itoneal mass-possible small bowel mass that was measured above with transition point on image 50. Sma ll bowel loops distal to this are decompressed entirely. Surgical change of a right hemicolectomy. Sm all amount of ascites is seen in addition to the mesenteric congestion. The gastric antrum is thicke deandre and folds upon itself. Marked on image 36 and 38. OTHER: Abdominal aorta is of normal course and caliber with moderate atherosclerosis. IMPRESSION: 1. HIGH-GRADE SMALL BOWEL OBSTRUCTION SECONDARY TO WHAT APPEARS TO BE A MESENTERIC, LIKELY METASTATIC OR AN INVASIVE COMPONENT OF THE PRIMARY RESECTED COLON CARCINOMA, MASS POSSIBLY INVADING BUT AT LEAS T OBSTRUCTING THE SMALL BOWEL TETHERING THE MESENTERY. 2. DIFFUSE THICKENING OF THE GASTRIC ANTRUM AND MULTIFOCAL THICKENING OF THE SMALL BOWEL ALTHOUGH WOOD E OF THESE AREAS IS SMALL BOWEL WALL THICKENING ADJACENT TO THE MESENTERIC MASS ARE PRESUMED TO REPRE SENT INVASION OF THE MESENTERIC MASS. 3. MESENTERIC CONGESTION AND TRACE ASCITES. 4. INNUMERABLE HEPATIC METASTASIS, ENLARGED FROM THE PRIOR OF 04/04/2019 AND NEW OSSEOUS METASTASIS. 5. NUMEROUS PATHOLOGIC METASTATIC ABDOMINAL AND PELVIC LYMPH NODES.
[2019-07-17] MEDS ORDERED: NALOXONE 0.4 MG/ML 1 ML VIAL IV PRN (11:43)
[2019-07-17] MEDS ORDERED: MORPHINE SULFATE 4 MG/ML SYRINGE IV PRN (11:43)
[2019-07-17] MEDS: ONDANSETRON 4 MG/2 ML VIAL IVP PRN (14:39)
[2019-07-17] MEDS: SODIUM CHLORIDE 0.9% 1,000 ML IV SCH ×2 (14:43→23:38)
[2019-07-17] MEDS ORDERED: TRIAMCINOLONE 0.1% CREAM 80 GM TUBE TOPICAL PRN (16:27)
[2019-07-17] MEDS: CAPECITABINE 500 MG PO SCH ×2 (17:02→19:46)
[2019-07-17] MEDS: METOCLOPRAMIDE 5 MG TAB PO SCH (17:05)
[2019-07-17] MEDS ORDERED: MORPHINE SULFATE 4 MG/ML SYRINGE IVP PRN (17:24)
--- NOTE | 2019-07-17 17:24 | P.HPIM ---
History of Present Illness H&P Date: 07/17/19 79-year-old male patient of Dr. Welch , Dr. Watkins with past medical history of CLL, history of elevated blood pressure and BPH along with mild hyperlipidemia who has been doing well was moved to [facility] was diagnosed with large mass in the right side of the abdomen with metastasis looks like stage IV colon cancer. Review his last colonoscopy from 2015 was negative for any polyp colitis or finding at the time. He underwent right colectomy on April 05 right colectomy and partial omentectomy completed by Dr. Romo. He comes in today with nausea, vomiting started 2 days ago. Patient is on Xeloda and could not finish his last day of Xeloda on Wednesday due to ongoing nausea and vomiting. CT abdomen done today suggest high-grade small bowel obstruction secondary to medullary present trach likely metastatic or any invasive component of primary resected colon carcinoma. With concern of a mass invading or obstructing the small bowel teaching them is entry. Diffuse thickening of the gastric antrum and multifocal thickening of the small bowel adjacent to mesenteric mass there appears to be innumerable hepatic metastasis enlarged compared to what seen on 04/04 and few doses Robles stasis. Numerous pathology: Abdominal and pelvic lymph nodes were also noted. On blood work there is increase in bilirubin to 2.7 alkaline phosphatase is enlarged at 308 bilirubin is 3.4 LFTs are otherwise normal. Patient is to be kept nothing by mouth. Dr. Whaley and Dr. Watkins consulted for further recommendation Review of Systems Constitutional: Denies chills, Denies fever, Denies lethargy, Denies malaise, Denies poor appetite, Denies weakness, Denies weight loss Eyes: denies decreased vision, denies diplopia, denies discharge, denies pain Ears: deny: decreased hearing Ears, nose, mouth and throat: Denies dental pain, Denies headache, Denies nasal discharge, Denies nose pain Cardiovascular: Denies chest pain, Denies decreased exercise tolerance, Denies edema, Denies high blood pressure, Denies irregular heart beat, Denies palpitations, Denies paroxysmal nocturnal dyspnea, Denies rapid heart beat, Denies shortness of breath Respiratory: Denies congestion, Denies cough, Denies cough with sputum, Denies dyspnea, Denies home oxygen, Denies wheezing Gastrointestinal: Denies abdominal pain, Denies change in bowel habits, Denies coffee ground emesis, Denies early satiety, Denies excessive gas, Denies heartburn, Denies hematemesis, Denies hematochezia, Denies loss of appetite, endorses nausea and vomiting Genitourinary: Denies dysuria, Denies flank pain, Denies kidney stones, Denies menorrhagia, Denies urgency, Denies urinary frequency Musculoskeletal: Denies gait dysfunction, Denies limitation of motion, Denies morning stiffness, Denies muscle cramps Integumentary: Denies rash, Denies wounds, Denies brittle nails, Denies change in hair/nails, Denies darkening of skin Neurological: Denies balance difficulties, Denies change in speech, Denies double vision, Denies gait dysfunction, Denies loss of vision, Denies motor disturbance, Denies numbness, Denies paralysis, Denies paresthesias, Denies seizures Psychiatric: Denies anxiety, Denies depression Endocrine: Denies excessive sweating, Denies excessive thirst, Denies high blood sugars, Denies palpitations Hematologic/Lymphatic: Denies easy bruising, Denies lymphadenopathy Past Medical History Past Medical History: Cancer, Hyperlipidemia, Hypertension Additional Past Medical History / Comment(s): hx of CLL, DX 2000, treated in 2019 for reoccurring CLL, on capecitabine orally, seasonal allergies, hx polyps, hx hemorrhoids, colon cancer History of Any Multi-Drug Resistant Organisms: None Reported Past Surgical History: Hernia Repair, Tonsillectomy Additional Past Surgical History / Comment(s): colonoscopy, vasectomy, polypectomy Past Anesthesia/Blood Transfusion Reactions: No Reported Reaction Past Psychological History: No Psychological Hx Reported Smoking Status: Unknown if ever smoked Past Alcohol Use History: None Reported Additional Past Alcohol Use History / Comment(s): started smoking age 34, (1972) quit 1980, smoked a pipe in his early 20's for a few years never inhaled Past Drug Use History: None Reported - Past Family History Mother Family Medical History: Cancer Additional Family Medical History / Comment(s): breast Son(s) Family Medical History: Cancer, Coronary Artery Disease (CAD), Myocardial Infarction ([place]) Additional Family Medical History / Comment(s): non hodgkins lymphoma, Medications and Allergies Home Medications Medication Instructions Recorded Confirmed Type Calcium Carb/Magnesium Hydrox 1 tab PO DAILY PRN 07/17/19 07/17/19 History [Rolaids Chewable Tablet] Capecitabine [Xeloda] 500 mg PO QID 07/17/19 07/17/19 History Loperamide HCl [Imodium A-D] 2 mg PO DAILY PRN 07/17/19 07/17/19 History Triamcinolone 0.1% Cream [Kenalog 1 applicatio TOPICAL TID PRN 07/17/19 07/17/19 History 0.1% Cream] Allergies Allergy/AdvReac Type Severity Reaction Status Date / Time Penicillins Allergy Swelling Verified 07/17/19 08:56 Sulfa (Sulfonamide Allergy Rash/Hives Verified 07/17/19 08:56 Antibiotics) Physical Exam Vitals: Vital Signs Temp Pulse Pulse Resp BP BP Pulse Ox 07/17/19 15:00 15 07/17/19 14:28 98.1 F 91 18 113/64 98 07/17/19 13:54 98.3 F 84 18 119/77 95 07/17/19 08:32 97.3 F L 119 H 18 113/70 99 Intake and Output 07/17/19 07/17/19 07/17/19 06:59 14:59 22:59 Intake Total 330 Balance 330 Intake: Intake, IV Titration 330 Amount Sodium Chloride 0.9% 1, 330 000 ml @ 110 mls/hr IV . Q9H6M [facility] Rx#:[id number] Oral 0 Other: Voiding Method Toilet # Voids 1 Weight 65.317 kg - Constitutional General appearance: cooperative, no acute distress, thin-appearing- EENT Eyes: anicteric sclerae, PERRLA, normal appearance ENT: hearing grossly normal - Neck Neck: no lymphadenopathy, normal ROM, no other, no rigidity, no stridor, no thyromegaly - Respiratory Respiratory: bilateral: CTA, negative: diminished, dullness, rales, rhonchi - Cardiovascular Rhythm: regular Heart sounds: normal: S1, S2 Abnormal Heart Sounds: no systolic murmur, no diastolic murmur, no rub, no S3 Gallop, no S4 Gallop, no click, no other - Gastrointestinal General gastrointestinal: normal bowel sounds, soft - Integumentary Integumentary: no rash - Neurologic Neurologic: CNII-XII intact - Musculoskeletal Musculoskeletal: gait normal, strength equal bilaterally - Psychiatric Psychiatric: A&O x's 3, appropriate affect Results CBC & Chem 7: 07/17/19 09:05 07/17/19 09:05 Labs: Abnormal Lab Results - Last 24 Hours (Table) 07/17/19 07/17/19 Range/Units 09:05 09:05 MCV 77.4 L (80.0-100.0) fL RDW 24.3 H (11.5-15.5) % Chloride 95 L (98-107) mmol/L Carbon Dioxide 34 H (22-30) mmol/L Glucose 136 H (74-99) mg/dL Total Bilirubin 2.7 H (0.2-1.3) mg/dL Alkaline Phosphatase 308 H (38-126) U/L Total Protein 5.5 L (6.3-8.2) g/dL Albumin 3.4 L (3.5-5.0) g/dL Thrombosis Risk Factor Assmnt - DVT/VTE Prophylaxis DVT/VTE Prophylaxis: Pharmacologic Prophylaxis ordered - Choose All That Apply Any of the Below Risk Factors Present?: No Other Risk Factors: Yes Each Risk Factor Represents 2 Points: Malignancy Each Risk Factor Represents 3 Points: Age 75 years or older Other congenital or acquired thrombophilia - If yes, enter type in comment: No Thrombosis Risk Factor Assessment Total Risk Factor Score: 5 Thrombosis Risk Factor Assessment Level: High Risk Assessment and Plan Plan: 1 nausea and vomiting secondary to small bowel obstruction keep patient nothing by mouth, IV hydration, pain management general surgery consult placed 2 : Stage IV colon cancer status post colectomy and omentectomy with worsening of metastatic service on computed tomography scan. Completed second cycle of Xeloda on 07/16 3 hyperbilirubinemia secondary to hepatic metastases Dr. Watkins consulted 4 history of CLL: Has been in remission. 5 sinus tachycardia resolved 6 BPH: Watch for any urinary retention. 7 GI prophylaxis: Patient will be on pantoprazole 40 mg daily. 8 DVT prophylaxis: Patient will be Lovenox 40 subcu daily CODE STATUS: Full code. Admit patient to inpatient status for more than 2 nights.
[2019-07-18] MEDS ORDERED: ENOXAPARIN 40 MG/0.4 ML SYRINGE SQ SCH (09:00)
[2019-07-18 10:08] LABS: Anisocytosis Marked; Basophils % (A) 0 %; Eosinophils # (A) 0.1 k/uL (0-0.7); Eosinophils % (A) 2 %; HCT 36.7 % (39.0-53.0); HGB 11.9 gm/dL (13.0-17.5); Lymphocytes # (A) 1.4 k/uL (1.0-4.8); Lymphocytes % (A) 25 %; MCH 25.6 pg (25.0-35.0); MCHC 32.3 g/dL (31.0-37.0); MCV 79.4 fL (80.0-100.0); Macrocytosis Slight; Mean Platelet Volume 8.3; Microcytosis Moderate; Monocytes # (A) 0.4 k/uL (0-1.0); Monocytes % (A) 7 %; Neutrophils # (A) 3.7 k/uL (1.3-7.7); Neutrophils % (A) 65 %; Platelet Count 216 k/uL (150-450); RBC 4.63 m/uL (4.30-5.90); WBC 5.7 k/uL (3.8-10.6)
[2019-07-18 10:09] LABS: RDW 27.5 % (11.5-15.5)
[2019-07-18] MEDS: METOCLOPRAMIDE 5 MG TAB PO SCH ×3 (10:09→18:02)
[2019-07-18] MEDS: FAMOTIDINE 20 MG TAB PO SCH (10:09)
[2019-07-18] MEDS: PANTOPRAZOLE 40 MG/10 ML VIAL IV SCH (10:10)
[2019-07-18] MEDS: SODIUM CHLORIDE 0.9% 1,000 ML IV SCH ×2 (10:10→18:01)
[2019-07-18] MEDS: CAPECITABINE 500 MG PO SCH (10:11)
[2019-07-18 10:58] LABS: ALT 36 U/L (21-72); AST 35 U/L (17-59); African American GFR (CKD) >90 (>60 ml/min/1.73 sqM); Albumin 2.6 g/dL (3.5-5.0); Alkaline Phosphatase 214 U/L (38-126); Anion Gap 6 mmol/L; Blood Urea Nitrogen 21 mg/dL (9-20); Calcium 8.4 mg/dL (8.4-10.2); Carbon Dioxide 31 mmol/L (22-30); Chloride 103 mmol/L (98-107); Glucose 94 mg/dL (74-99); Potassium 3.7 mmol/L (3.5-5.1); Sodium 140 mmol/L (137-145); Total Bilirubin 1.5 mg/dL (0.2-1.3); Total Protein 4.3 g/dL (6.3-8.2)
--- NOTE | 2019-07-18 13:39 | P.GSCN ---
History of Present Illness Consult date: 07/18/19 Reason for Consult: Small bowel obstruction Requesting physician: Kevin Machado History of present illness: CHIEF COMPLAINT: Small bowel obstruction HISTORY OF PRESENT ILLNESS: 79 year old male with a history of colon cancer with metastasis to the liver. Patient underwent right colectomy 04/05/[address] Romo. He reports he has been seeing Dr. Watkins outpatient and is receiving Xeloda. He states he has been doing fairly well until Wednesday when he began having nausea and multiple episodes of emesis. Spouse at the bedside and reports he was unable to keep anything down, including water. He has not been able to take his Xeloda since Wednesday either due to nausea/vomiting. He currently denies abdominal pain. Denies nausea. He reports spitting up some pleghm occasionally, but no further episodes of emesis. He is passing flatus. He reports having BMs at home. He reports 20 pound weight loss over the past month. PAST MEDICAL HISTORY: See list. PAST SURGICAL HISTORY: See list. SOCIAL HISTORY: No illicit drug use. REVIEW OF SYSTEMS: CONSTITUTIONAL: Denies fever or chills. HEENT: Denies blurred vision, vision changes, or eye pain. Denies hemoptysis CARDIOVASCULAR: Denies chest pain or pressure. RESPIRATORY: No shortness of breath. GASTROINTESTINAL: Refer to HPI for pertinent findings HEMATOLOGIC: Denies bleeding disorders. GENITOURINARY: Denies any blood in urine. SKIN: Denies pruitis. Denies rash. PHYSICAL EXAM: VITAL SIGNS: Reviewed. GENERAL: Well-developed in no acute distress. Thin. HEENT: No sclera icterus. Extraocular movements grossly intact. Moist buccal mucosa. Head is atraumatic, normocephalic. ABDOMEN: Soft. Nondistended. Nontender. Positive bowel sounds. NEUROLOGIC: Alert and oriented. Cranial nerves II through XII grossly intact. LABORATORY DATA: Laboratory data upon admission reveals white count 9.5. Hemoglobin 14.3. Platelet count 283. Sodium 138. Potassium 3.6. BUN 20. Creatinine 0.82. Bilirubin 2.7. AST 37. ALT 39. Alkaline phosphatase 308. IMAGIN. KUB xray-small bowel ileus or obstruction 2. CT abdomen and pelvis: high grade small bowel obstruction secondary to what appears to be a mesenteric, likely metastatic or invasive component of the primary resected colon carcinoma, mass possibly invading but at least obstructing the small bowel tethering the mesentery. Diffuse thickening of the gastric antrum and multifocal thickening of the small bowel also some of the area of the small bowel wall thickening adjacent to the mesenteric mass are presumed to represent invasion of the mesenteric mass. Mesenteric congestion and trace ascites. Innumerable hepatic metastasis. Enlarged from prior CAT scan completed on 04/04/2019 and new osseous metastasis. Numerous pathological metastatic abdominal and pelvic lymph nodes ASSESSMENT: 1. Small bowel obstruction, secondary to metastatic disease 2. Colon cancer with metastasis to liver, worsening on repeat CT scan with new osseous metastatis PLAN: 1. Continue NPO. No NG tube unless patient begins vomiting 2. Oncology has been consulted to evaluate patient. CEA level pending. Await recommendations. 3. Overall, the patient is a poor surgical candidate secondary to metastatic disease with worsening liver mets and new osseous metastasis. However, patient is interested in surgical options. Case discussed with Dr. Romo. He will evaluate patient this evening and discuss options with patient. Patient is tentatively boarded for OR tomorrow in the event that patient wishes to proceed with surgery. Otherwise, patient may be more appropriate for palliative treatment/comfort measures. Nurse practitioner note has been reviewed by physician. Signing provider agrees with the documented findings, assessment, and plan of care. Past Medical History Past Medical History: Cancer, Hyperlipidemia, Hypertension Additional Past Medical History / Comment(s): hx of CLL, DX 2000, treated in 2019 for reoccurring CLL, on capecitabine orally, seasonal allergies, hx polyps, hx hemorrhoids, colon cancer History of Any Multi-Drug Resistant Organisms: None Reported Past Surgical History: Hernia Repair, Tonsillectomy Additional Past Surgical History / Comment(s): colonoscopy, vasectomy, polypectomy Past Anesthesia/Blood Transfusion Reactions: No Reported Reaction Past Psychological History: No Psychological Hx Reported Smoking Status: Unknown if ever smoked Past Alcohol Use History: None Reported Additional Past Alcohol Use History / Comment(s): started smoking age 34, (1972) quit 1980, smoked a pipe in his early 20's for a few years never inhaled Past Drug Use History: None Reported - Past Family History Mother Family Medical History: Cancer Additional Family Medical History / Comment(s): breast Son(s) Family Medical History: Cancer, Coronary Artery Disease (CAD), Myocardial Infarction ([place]) Additional Family Medical History / Comment(s): non hodgkins lymphoma, Medications and Allergies Home Medications Medication Instructions Recorded Confirmed Type Calcium Carb/Magnesium Hydrox 1 tab PO DAILY PRN 07/17/19 07/17/19 History [Rolaids Chewable Tablet] Capecitabine [Xeloda] 500 mg PO QID 07/17/19 07/17/19 History Loperamide HCl [Imodium A-D] 2 mg PO DAILY PRN 07/17/19 07/17/19 History Triamcinolone 0.1% Cream [Kenalog 1 applicatio TOPICAL TID PRN 07/17/19 07/17/19 History 0.1% Cream] Allergies Allergy/AdvReac Type Severity Reaction Status Date / Time Penicillins Allergy Swelling Verified 07/17/19 08:56 Sulfa (Sulfonamide Allergy Rash/Hives Verified 07/17/19 08:56 Antibiotics) Surgical - Exam Vital Signs Temp Pulse Resp BP Pulse Ox 97.3 F L 119 H 18 113/70 99 07/17/19 08:32 07/17/19 08:32 07/17/19 08:32 07/17/19 08:32 07/17/19 08:32 Results - Labs 07/18/19 09:19 07/18/19 09:19 Abnormal Lab Results - Last 24 Hours (Table) 07/18/19 07/18/19 Range/Units 09:19 09:19 Hgb 11.9 L (13.0-17.5) gm/dL Hct 36.7 L (39.0-53.0) % MCV 79.4 L (80.0-100.0) fL RDW 27.5 H (11.5-15.5) % Carbon Dioxide 31 H (22-30) mmol/L BUN 21 H (9-20) mg/dL Total Bilirubin 1.5 H (0.2-1.3) mg/dL Alkaline Phosphatase 214 H (38-126) U/L Total Protein 4.3 L (6.3-8.2) g/dL Albumin 2.6 L (3.5-5.0) g/dL Diabetes panel 07/18/19 Range/Units 09:19 Sodium 140 (137-145) mmol/L Potassium 3.7 (3.5-5.1) mmol/L Chloride 103 (98-107) mmol/L Carbon Dioxide 31 H (22-30) mmol/L BUN 21 H (9-20) mg/dL Creatinine 0.67 (0.66-1.25) mg/dL Glucose 94 (74-99) mg/dL Calcium 8.4 (8.4-10.2) mg/dL AST 35 (17-59) U/L ALT 36 (21-72) U/L Alkaline Phosphatase 214 H (38-126) U/L Total Protein 4.3 L (6.3-8.2) g/dL Albumin 2.6 L (3.5-5.0) g/dL Calcium panel 07/18/19 Range/Units 09:19 Calcium 8.4 (8.4-10.2) mg/dL Albumin 2.6 L (3.5-5.0) g/dL Pituitary panel 07/18/19 Range/Units 09:19 Sodium 140 (137-145) mmol/L Potassium 3.7 (3.5-5.1) mmol/L Chloride 103 (98-107) mmol/L Carbon Dioxide 31 H (22-30) mmol/L BUN 21 H (9-20) mg/dL Creatinine 0.67 (0.66-1.25) mg/dL Glucose 94 (74-99) mg/dL Calcium 8.4 (8.4-10.2) mg/dL Adrenal panel 07/18/19 Range/Units 09:19 Sodium 140 (137-145) mmol/L Potassium 3.7 (3.5-5.1) mmol/L Chloride 103 (98-107) mmol/L Carbon Dioxide 31 H (22-30) mmol/L BUN 21 H (9-20) mg/dL Creatinine 0.67 (0.66-1.25) mg/dL Glucose 94 (74-99) mg/dL Calcium 8.4 (8.4-10.2) mg/dL Total Bilirubin 1.5 H (0.2-1.3) mg/dL AST 35 (17-59) U/L ALT 36 (21-72) U/L Alkaline Phosphatase 214 H (38-126) U/L Total Protein 4.3 L (6.3-8.2) g/dL Albumin 2.6 L (3.5-5.0) g/dL
--- NOTE | 2019-07-18 14:27 | P.PN ---
Subjective Progress Note Date: 07/18/19 79-year-old male patient of Dr. Welch , Dr. Watkins with past medical history of CLL, history of elevated blood pressure and BPH along with mild hyperlipidemia who has been doing well was moved to [facility] was diagnosed with large mass in the right side of the abdomen with metastasis looks like stage IV colon cancer. Review his last colonoscopy from 2015 was negative for any polyp colitis or finding at the time. He underwent right colectomy on April 05 right colectomy and partial omentectomy completed by Dr. Romo. He comes in today with nausea, vomiting started 2 days ago. Patient is on Xeloda and could not finish his last day of Xeloda on Wednesday due to ongoing nausea and vomiting. CT abdomen done today suggest high-grade small bowel obstruction secondary to medullary present trach likely metastatic or any invasive component of primary resected colon carcinoma. With concern of a mass invading or obstructing the small bowel teaching them is entry. Diffuse thickening of the gastric antrum and multifocal thickening of the small bowel adjacent to mesenteric mass there appears to be innumerable hepatic metastasis enlarged compared to what seen on 04/04 and few doses Robles stasis. Numerous pathology: Abdominal and pelvic lymph nodes were also noted. On blood work there is increase in bilirubin to 2.7 alkaline phosphatase is enlarged at 308 bilirubin is 3.4 LFTs are otherwise normal. Patient is to be kept nothing by mouth. Dr. Whaley and Dr. Watkins consulted for further recommendation 07/18: Repeat lab work reveals white count 5.7, hemoglobin 11.9, platelet count 216. CO2 is 31, BUN 21 creatinine 0.67. Total bilirubin 1.5, AST 35, alkaline phosphatase 214, ALT 36, albumin 2.6. Patient has been afebrile, heart rate 77, blood pressure 113/79, pulse ox 97% on room air. Patient states that the nausea is better and he has not had any vomiting today. No NG tube in place. He is taking ice chips. He denies passing any gas. Discussed case with Dr. Watkins and CEA has been ordered and if this is improved, it would indicate the patient has had some improvement with chemotherapy. General surgery is on consult for small bowel obstruction secondary to metastatic disease. Patient does not seem to be a good surgical candidate. Objective - Vital Signs Vital signs: Vital Signs Temp 98.1 F 07/18/19 04:52 Pulse 77 07/18/19 04:52 Resp 16 07/18/19 04:52 BP 113/79 07/18/19 04:52 Pulse Ox 97 07/18/19 04:52 Intake & Output 07/17/19 07/18/19 07/18/19 18:59 06:59 18:59 Intake Total 330 1470 Balance 330 1470 Weight 65.317 kg Intake: Intake, IV Titration 330 880 Amount Sodium Chloride 0.9% 1, 330 880 000 ml @ 110 mls/hr IV . Q9H6M [facility] Rx#:[id number] Oral 0 590 Other: Voiding Method Toilet Toilet # Voids 1 1 - Exam Review of Systems Constitutional: Denies chills, Denies fever, Denies lethargy, Denies malaise, Denies poor appetite, Denies weakness, Denies weight loss Eyes: denies decreased vision, denies diplopia, denies discharge, denies pain Ears: deny: decreased hearing Ears, nose, mouth and throat: Denies dental pain, Denies headache, Denies nasal discharge, Denies nose pain Cardiovascular: Denies chest pain, Denies decreased exercise tolerance, Denies edema, Denies high blood pressure, Denies irregular heart beat, Denies palpitations, Denies paroxysmal nocturnal dyspnea, Denies rapid heart beat, Denies shortness of breath Respiratory: Denies congestion, Denies cough, Denies cough with sputum, Denies dyspnea, Denies home oxygen, Denies wheezing Gastrointestinal: Denies abdominal pain, Denies change in bowel habits, Denies coffee ground emesis, Denies early satiety, Denies excessive gas, Denies heartburn, Denies hematemesis, Denies hematochezia, Denies loss of appetite, endorses nausea denies vomiting, denies flatulence, denies bowel movement Genitourinary: Denies dysuria, Denies flank pain, Denies kidney stones, Denies menorrhagia, Denies urgency, Denies urinary frequency Musculoskeletal: Denies gait dysfunction, Denies limitation of motion, Denies morning stiffness, Denies muscle cramps Integumentary: Denies rash, Denies wounds, Denies brittle nails, Denies change in hair/nails, Denies darkening of skin Neurological: Denies balance difficulties, Denies change in speech, Denies double vision, Denies gait dysfunction, Denies loss of vision, Denies motor disturbance, Denies numbness, Denies paralysis, Denies paresthesias, Denies seizures Psychiatric: Denies anxiety, Denies depression Endocrine: Denies excessive sweating, Denies excessive thirst, Denies high blood sugars, Denies palpitations Hematologic/Lymphatic: Denies easy bruising, Denies lymphadenopathy - Constitutional General appearance: cooperative, no acute distress, thin-appearing, at bedside EENT Eyes: anicteric sclerae, PERRLA, normal appearance ENT: hearing grossly normal - Neck Neck: no lymphadenopathy, normal ROM, no other, no rigidity, no stridor, no thyromegaly - Respiratory Respiratory: bilateral: CTA, negative: diminished, dullness, rales, rhonchi - Cardiovascular Rhythm: regular Heart sounds: normal: S1, S2 Abnormal Heart Sounds: no systolic murmur, no diastolic murmur, no rub, no S3 Gallop, no S4 Gallop, no click, no other - Gastrointestinal General gastrointestinal: normal bowel sounds, soft - Integumentary Integumentary: no rash - Neurologic Neurologic: CNII-XII intact - Musculoskeletal Musculoskeletal: gait normal, strength equal bilaterally - Psychiatric Psychiatric: A&O x's 3, appropriate affect - Labs CBC & Chem 7: 07/18/19 09:19 07/18/19 09:19 Labs: Abnormal Lab Results - Last 24 Hours (Table) 07/17/19 07/17/19 Range/Units 09:05 09:05 MCV 77.4 L (80.0-100.0) fL RDW 24.3 H (11.5-15.5) % Chloride 95 L (98-107) mmol/L Carbon Dioxide 34 H (22-30) mmol/L Glucose 136 H (74-99) mg/dL Total Bilirubin 2.7 H (0.2-1.3) mg/dL Alkaline Phosphatase 308 H (38-126) U/L Total Protein 5.5 L (6.3-8.2) g/dL Albumin 3.4 L (3.5-5.0) g/dL Assessment and Plan Plan: 1. Nausea and vomiting secondary to small bowel obstruction. Patient is taking ice chips, IV hydration, pain management. Dr. Bhesania on consult. 2. Stage IV colon cancer status post colectomy and omentectomy with worsening of metastatic service on computed tomography scan. Completed second cycle of Xeloda on 07/16. Consult with Dr. Watkins appreciated. CEA ordered. 3. Hyperbilirubinemia secondary to hepatic metastases. Dr. Watkins consulted 4. History of CLL: Has been in remission. 5. Sinus tachycardia resolved 6. BPH: Watch for any urinary retention. 7. GI prophylaxis: Patient will be on pantoprazole 40 mg daily. 8. DVT prophylaxis: Patient will be Lovenox 40 subcu daily CODE STATUS: Full code. Discharge plan: Return home. Impression and plan of care have been directed as dictated by the signing physician. Dorina Ortega nurse practitioner acting as scribe for signing physician.
--- NOTE | 2019-07-18 23:14 | P.CONS ---
History of Present Illness - Reason for Consult Consult date: 07/18/19 SBO, metastatic colon cancer - History of Present Illness Mr Couch is an 79 yr old white male, initially seen in consult at [facility] on 04/05/19. The patient had been admitted with abdominal pain, abdominal distention nausea and vomiting progressing over the past week. CT of the abdomen and pelvis showed dilated bowel loops suggestive of obstruction at the sacral level, with soft tissue mass and significant dilation. At least 20 liver lesions were seen highly s/o metastasis with shotty periao rtic adenopathy. The patient was taken to surgery on 04/05/19 and underwent segmental excision of the right colon. This revealed moderately differentiated adenocarcinoma perforating the bowel wall involving and adjacent structures including the duodenal serosal surface. Duodenal surface was involved with malignancy. 0/4 lymph nodes were involved. At least 2 tumor deposits were noted in the mesocolic soft tissue. Tumor was 5.5 x 3.5 cm and grade 2. There was evidence of ischemic changes in the cecum with suppurative serositis and appendicitis with transmural extension. The patient was discharged to [facility] post surgery on 04/12/19. He was seen for his first office visit on 05/24/19. He also has a history of CLL, not requiring any treatment. he was started on Po Xeloda on 06/05/19, and is s/p 2 cycles. He is also s/p 3 infusions of vectibix. the patient was supposed to complete Last day of Xeloda dosing of cycle #2 on 07/15/19. However he was unable to take that as he developed nausea and vomiting. This was initially intermittent but became much more progressive to the point where he could not keep anything down. His family therefore called the answering service. I advised the patient to go into the ER. CT scan of the abdomen and pelvis in the ER showed evidence of small bowel obstruction due to mesenteric metastatic deposit. Other findings included pathologically enlarged lymph node and liver metastasis. The patient was therefore admitted for further management and consult placed. He reports no bowel movement since onset of his nausea and vomiting. He also does not recall passing any gas. Review of Systems Constitutional: Reports poor appetite, Reports weakness, Reports weight loss Eyes: denies blurred vision, denies pain Ears: deny: decreased hearing, ear discharge, earache, tinnitus Ears, nose, mouth and throat: Denies headache, Denies sore throat Cardiovascular: Reports dyspnea on exertion Respiratory: Denies cough Gastrointestinal: Reports constipation, Reports nausea, Reports vomiting Genitourinary: Reports as per HPI Musculoskeletal: Reports muscle weakness Integumentary: Denies pruritus, Denies rash Neurological: Reports weakness Psychiatric: Denies anxiety, Denies depression Endocrine: Reports fatigue, Reports weight change Hematologic/Lymphatic: Reports as per HPI Past Medical History Past Medical History: Cancer, Hyperlipidemia, Hypertension Additional Past Medical History / Comment(s): hx of CLL, DX 2000, treated in 2019 for reoccurring CLL, on capecitabine orally, seasonal allergies, hx polyps, hx hemorrhoids, colon cancer History of Any Multi-Drug Resistant Organisms: None Reported Past Surgical History: Hernia Repair, Tonsillectomy Additional Past Surgical History / Comment(s): colonoscopy, vasectomy, polypectomy Past Anesthesia/Blood Transfusion Reactions: No Reported Reaction Past Psychological History: No Psychological Hx Reported Smoking Status: Unknown if ever smoked Past Alcohol Use History: None Reported Additional Past Alcohol Use History / Comment(s): started smoking age 34, (1972) quit 1980, smoked a pipe in his early 20's for a few years never inhaled Past Drug Use History: None Reported - Past Family History Mother Family Medical History: Cancer Additional Family Medical History / Comment(s): breast Son(s) Family Medical History: Cancer, Coronary Artery Disease (CAD), Myocardial Infarction ([place]) Additional Family Medical History / Comment(s): non hodgkins lymphoma, Medications and Allergies Home Medications Medication Instructions Recorded Confirmed Type Calcium Carb/Magnesium Hydrox 1 tab PO DAILY PRN 07/17/19 07/17/19 History [Rolaids Chewable Tablet] Capecitabine [Xeloda] 500 mg PO QID 07/17/19 07/17/19 History Loperamide HCl [Imodium A-D] 2 mg PO DAILY PRN 07/17/19 07/17/19 History Triamcinolone 0.1% Cream [Kenalog 1 applicatio TOPICAL TID PRN 07/17/19 07/17/19 History 0.1% Cream] Allergies Allergy/AdvReac Type Severity Reaction Status Date / Time Penicillins Allergy Swelling Verified 07/17/19 08:56 Sulfa (Sulfonamide Allergy Rash/Hives Verified 07/17/19 08:56 Antibiotics) Physical Exam Vitals: Vital Signs Temp Pulse Pulse Resp BP Pulse Ox 07/18/19 21:10 18 07/18/19 21:07 97.6 F 76 18 109/57 96 07/18/19 15:02 16 07/18/19 12:12 98.2 F 71 17 96/56 95 07/18/19 07:55 16 07/18/19 04:52 98.1 F 77 16 113/79 97 Intake and Output 07/18/19 07/18/19 07/18/19 06:59 14:59 22:59 Intake Total 880 890 330 Balance 880 890 330 Intake: Intake, IV Titration 880 840 330 Amount Sodium Chloride 0.9% 1, 880 840 330 000 ml @ 110 mls/hr IV . Q9H6M [facility] Rx#:[id number] Oral 0 50 Other: Voiding Method Toilet Toilet Toilet # Voids 3 3 Weight 65.317 kg - Constitutional General appearance: no acute distress - EENT Eyes: EOMI, PERRLA ENT: hearing grossly normal, normal oropharynx - Neck Neck: no lymphadenopathy Thyroid: bilateral: normal size - Respiratory Respiratory: bilateral: CTA - Cardiovascular Rhythm: regular Heart sounds: normal: S1, S2 - Gastrointestinal General gastrointestinal: decreased bowel sounds, soft - Integumentary Integumentary: normal - Neurologic Neurologic: CNII-XII intact - Musculoskeletal Musculoskeletal: generalized weakness, strength equal bilaterally - Psychiatric Psychiatric: A&O x's 3, appropriate affect Results CBC & Chem 7: 07/18/19 09:19 07/18/19 09:19 Labs: Abnormal Lab Results - Last 24 Hours (Table) 07/17/19 07/18/19 07/18/19 Range/Units 09:05 09:19 09:19 Hgb 11.9 L (13.0-17.5) gm/dL Hct 36.7 L (39.0-53.0) % MCV 79.4 L (80.0-100.0) fL RDW 27.5 H (11.5-15.5) % Carbon Dioxide 31 H (22-30) mmol/L BUN 21 H (9-20) mg/dL Total Bilirubin 1.5 H (0.2-1.3) mg/dL Alkaline Phosphatase 214 H (38-126) U/L Total Protein 4.3 L (6.3-8.2) g/dL Albumin 2.6 L (3.5-5.0) g/dL Carcinoembryonic Ag 211.2 H (0.0-4.9) ng/mL Abdominal x-ray: report reviewed CT scan - abdomen: report reviewed CT scan - pelvis: report reviewed Assessment and Plan (1) Small bowel obstruction Narrative/Plan: This is a new finding. Based on the CAT scan this appears to be due to progression of disease. With stopping of by mouth intake nausea and vomiting have improved symptomatically. However the patient has not had a bowel movement and is still not passing gas. Case was discussed in detail with the patient, and subsequently the admitting service. Based on the CT appearance, it is less likely the patient will respond to conservative treatment. Ideally surgery would be considered, but the patient is a poor surgical candidate given the extent of disease, recent surgery and risk of significant adhesions. In addition recovery post his previous bowel surgery is quite prolonged. In the postsurgical phase he would not be able to have chemotherapy at least for some weeks during which time his malignancy but progressed further and causes her current issues. The patient is to be evaluated by surgery. I discussed him, and the admitting service that his likely to be a suboptimal candidate for the same. He will consider the situation further and also discussed options with the surgical service. If definitive surgery is not an option, and obstruction persists, then a palliative procedure such as NG tube placement for decompression may need to be considered. Current Visit: Yes Status: Acute Code(s): K56.609 - UNSP INTESTNL OBST, UNSP TO PARTIAL VERSUS COMPLETE OBST SNOMED Code(s): 562966087 (2) Colon adenocarcinoma Narrative/Plan: The patient had stage IV disease at presentation as noted.. He was started on Xeloda and EGFR monoclonal antibody. After cycle 1of Xeloda had to be decreased due to side effects for cycle 2. At this point there is a significant possibility that his cancer is progressing while on Xeloda. However as there was substantial Between the prior CT, and initiation of treatment, it is possible that the progression may have occurred in the interim between his prior CAT scan and institution of liver, and that his regimen is effective. I will therefore check a CEA level to try to define his disease situation better. His CEA level had declined to 174 from 27 after cycle 1. If there is CEA progression, than that in conjunction with the CT appearance would indicate progression on the current regimen, implying failure of the same. In that case, prognosis is quite guarded, given ongoing obstruction, and overall diminished performance status with intolerance of Xeloda, that would adversely impact the possibility of using a more aggressive regimen. Current Visit: No Status: Acute Priority: High Code(s): C18.9 - MALIGNANT NEOPLASM OF COLON, UNSPECIFIED SNOMED Code(s): 327830770 (3) CLL (chronic lymphocytic leukemia) Narrative/Plan: this is stable without evidence of progression. Current Visit: No Status: Chronic Priority: Low Code(s): C91.90 - LYMPHOID LEUKEMIA, UNSPECIFIED NOT HAVING ACHIEVED REMISSION SNOMED Code(s): 61069544 Plan: deferred to the admitting service And other consultants for management of his other medical problems
[2019-07-19] MEDS: ONDANSETRON 4 MG/2 ML VIAL IVP PRN ×2 (00:42→20:33)
[2019-07-19] MEDS: SODIUM CHLORIDE 0.9% 1,000 ML IV SCH ×4 (02:00→20:32)
[2019-07-19 07:43] LABS: Anisocytosis Marked; Basophils % (A) 0 %; Eosinophils % (A) 1 %; HCT 36.6 % (39.0-53.0); HGB 12.1 gm/dL (13.0-17.5); Lymphocytes # (A) 0.9 k/uL (1.0-4.8); Lymphocytes % (A) 25 %; MCH 26.6 pg (25.0-35.0); MCHC 32.9 g/dL (31.0-37.0); MCV 80.9 fL (80.0-100.0); Macrocytosis Slight; Mean Platelet Volume 7.2; Microcytosis Slight; Monocytes # (A) 0.3 k/uL (0-1.0); Monocytes % (A) 9 %; Neutrophils # (A) 2.2 k/uL (1.3-7.7); Neutrophils % (A) 63 %; Platelet Count 212 k/uL (150-450); RBC 4.53 m/uL (4.30-5.90); WBC 3.5 k/uL (3.8-10.6)
[2019-07-19 07:51] LABS: RDW 25.8 % (11.5-15.5)
[2019-07-19 07:59] LABS: ALT 31 U/L (21-72); AST 30 U/L (17-59); African American GFR (CKD) >90 (>60 ml/min/1.73 sqM); Albumin 2.5 g/dL (3.5-5.0); Alkaline Phosphatase 224 U/L (38-126); Anion Gap 7 mmol/L; Blood Urea Nitrogen 21 mg/dL (9-20); Calcium 7.7 mg/dL (8.4-10.2); Carbon Dioxide 27 mmol/L (22-30); Chloride 109 mmol/L (98-107); Glucose 82 mg/dL (74-99); Sodium 143 mmol/L (137-145); Total Bilirubin 1.5 mg/dL (0.2-1.3); Total Protein 4.2 g/dL (6.3-8.2)
[2019-07-19] MEDS: METOCLOPRAMIDE 5 MG TAB PO SCH ×3 (08:52→17:23)
[2019-07-19] MEDS: PANTOPRAZOLE 40 MG/10 ML VIAL IV SCH ×2 (08:53→09:44)
[2019-07-19] MEDS: FAMOTIDINE 20 MG TAB PO SCH (08:53)
[2019-07-19] MEDS: HEPARIN SODIUM,PORCINE 5,000 UNIT/ML 1 ML VIAL SQ SCH ×2 (09:10→20:32)
--- NOTE | 2019-07-19 15:11 | P.PN ---
Subjective Progress Note Date: 07/19/19 79-year-old male patient of Dr. Welch , Dr. Watkins with past medical history of CLL, history of elevated blood pressure and BPH along with mild hyperlipidemia who has been doing well was moved to [facility] was diagnosed with large mass in the right side of the abdomen with metastasis looks like stage IV colon cancer. Review his last colonoscopy from 2015 was negative for any polyp colitis or finding at the time. He underwent right colectomy on April 05 right colectomy and partial omentectomy completed by Dr. Romo. He comes in today with nausea, vomiting started 2 days ago. Patient is on Xeloda and could not finish his last day of Xeloda on Wednesday due to ongoing nausea and vomiting. CT abdomen done today suggest high-grade small bowel obstruction secondary to medullary present trach likely metastatic or any invasive component of primary resected colon carcinoma. With concern of a mass invading or obstructing the small bowel teaching them is entry. Diffuse thickening of the gastric antrum and multifocal thickening of the small bowel adjacent to mesenteric mass there appears to be innumerable hepatic metastasis enlarged compared to what seen on 04/04 and few doses Robles stasis. Numerous pathology: Abdominal and pelvic lymph nodes were also noted. On blood work there is increase in bilirubin to 2.7 alkaline phosphatase is enlarged at 308 bilirubin is 3.4 LFTs are otherwise normal. Patient is to be kept nothing by mouth. Dr. Whaley and Dr. Watkins consulted for further recommendation 07/18: Repeat lab work reveals white count 5.7, hemoglobin 11.9, platelet count 216. CO2 is 31, BUN 21 creatinine 0.67. Total bilirubin 1.5, AST 35, alkaline phosphatase 214, ALT 36, albumin 2.6. Patient has been afebrile, heart rate 77, blood pressure 113/79, pulse ox 97% on room air. Patient states that the nausea is better and he has not had any vomiting today. No NG tube in place. He is taking ice chips. He denies passing any gas. Discussed case with Dr. Watkins and CEA has been ordered and if this is improved, it would indicate the patient has had some improvement with chemotherapy. General surgery is on consult for small bowel obstruction secondary to metastatic disease. Patient does not seem to be a good surgical candidate. 07/19: Patient is scheduled by Dr. Romo with plan for exploratory laparotomy today, however, he is passing gas and having small bowel movements. Discussed case with Dr. Watkins and plan is to continue conservative management. Patient started on clear liquid diet. CEA 211.2, previous level 207.9 on May 24. Repeat lab work today reveals total bilirubin 1.5, alkaline phosphatase 224, albumin 2.5. BUN 21 creatinine 0.85. WBC 3.5, hemoglobin 12.1 and platelet count 212. He has been afebrile, heart rate 76, blood pressure 136/75, pulse ox 98% on room air. Objective - Vital Signs Vital signs: Vital Signs Temp 98.3 F 07/19/19 05:00 Pulse 85 07/19/19 05:00 Resp 16 07/19/19 05:00 BP 136/75 07/19/19 05:00 Pulse Ox 98 07/19/19 05:00 Intake & Output 07/18/19 07/19/19 07/19/19 18:59 06:59 18:59 Intake Total 890 330 Balance 890 330 Weight 65.317 kg Intake: Intake, IV Titration 840 330 Amount Sodium Chloride 0.9% 1, 840 330 000 ml @ 110 mls/hr IV . Q9H6M [facility] Rx#:[id number] Oral 50 Other: Voiding Method Toilet Toilet # Voids 3 2 # Bowel Movements 1 - Exam Review of Systems Constitutional: Denies chills, Denies fever, Denies lethargy, Denies malaise, Denies poor appetite, Denies weakness, Denies weight loss Eyes: denies decreased vision, denies diplopia, denies discharge, denies pain Ears: deny: decreased hearing Ears, nose, mouth and throat: Denies dental pain, Denies headache, Denies nasal discharge, Denies nose pain Cardiovascular: Denies chest pain, Denies decreased exercise tolerance, Denies edema, Denies high blood pressure, Denies irregular heart beat, Denies palpitations, Denies paroxysmal nocturnal dyspnea, Denies rapid heart beat, Denies shortness of breath Respiratory: Denies congestion, Denies cough, Denies cough with sputum, Denies dyspnea, Denies home oxygen, Denies wheezing Gastrointestinal: Denies abdominal pain, Denies change in bowel habits, Denies coffee ground emesis, Denies early satiety, Denies excessive gas, Denies heartburn, Denies hematemesis, Denies hematochezia, Denies loss of appetite, endorses nausea denies vomiting, denies flatulence, denies bowel movement Genitourinary: Denies dysuria, Denies flank pain, Denies kidney stones, Denies menorrhagia, Denies urgency, Denies urinary frequency Musculoskeletal: Denies gait dysfunction, Denies limitation of motion, Denies morning stiffness, Denies muscle cramps Integumentary: Denies rash, Denies wounds, Denies brittle nails, Denies change in hair/nails, Denies darkening of skin Neurological: Denies balance difficulties, Denies change in speech, Denies double vision, Denies gait dysfunction, Denies loss of vision, Denies motor disturbance, Denies numbness, Denies paralysis, Denies paresthesias, Denies seizures Psychiatric: Denies anxiety, Denies depression Endocrine: Denies excessive sweating, Denies excessive thirst, Denies high blood sugars, Denies palpitations Hematologic/Lymphatic: Denies easy bruising, Denies lymphadenopathy - Constitutional General appearance: cooperative, no acute distress, thin-appearing, patient is sitting in the chair, at bedside EENT Eyes: anicteric sclerae, PERRLA, normal appearance ENT: hearing grossly normal - Neck Neck: no lymphadenopathy, normal ROM, no other, no rigidity, no stridor, no thyromegaly - Respiratory Respiratory: bilateral: CTA, negative: diminished, dullness, rales, rhonchi - Cardiovascular Rhythm: regular Heart sounds: normal: S1, S2 Abnormal Heart Sounds: no systolic murmur, no diastolic murmur, no rub, no S3 Gallop, no S4 Gallop, no click, no other - Gastrointestinal General gastrointestinal: normal bowel sounds, soft - Integumentary Integumentary: no rash - Neurologic Neurologic: CNII-XII intact - Musculoskeletal Musculoskeletal: gait normal, strength equal bilaterally - Psychiatric Psychiatric: A&O x's 3, appropriate affect - Labs CBC & Chem 7: 07/19/19 07:02 07/19/19 07:02 Labs: Abnormal Lab Results - Last 24 Hours (Table) 07/17/19 07/18/19 07/18/19 Range/Units 09:05 09: 09:19 WBC (3.8-10.6) k/uL Hgb 11.9 L (13.0-17.5) gm/dL Hct 36.7 L (39.0-53.0) % MCV 79.4 L (80.0-100.0) fL RDW 27.5 H (11.5-15.5) % Lymphocytes # (1.0-4.8) k/uL Chloride (98-107) mmol/L Carbon Dioxide 31 H (22-30) mmol/L BUN 21 H (9-20) mg/dL Calcium (8.4-10.2) mg/dL Total Bilirubin 1.5 H (0.2-1.3) mg/dL Alkaline Phosphatase 214 H (38-126) U/L Total Protein 4.3 L (6.3-8.2) g/dL Albumin 2.6 L (3.5-5.0) g/dL Carcinoembryonic Ag 211.2 H (0.0-4.9) ng/mL 07/19/19 07/19/19 Range/Units 07:02 07:02 WBC 3.5 L (3.8-10.6) k/uL Hgb 12.1 L (13.0-17.5) gm/dL Hct 36.6 L (39.0-53.0) % MCV (80.0-100.0) fL RDW 25.8 H (11.5-15.5) % Lymphocytes # 0.9 L (1.0-4.8) k/uL Chloride 109 H (98-107) mmol/L Carbon Dioxide (22-30) mmol/L BUN 21 H (9-20) mg/dL Calcium 7.7 L (8.4-10.2) mg/dL Total Bilirubin 1.5 H (0.2-1.3) mg/dL Alkaline Phosphatase 224 H (38-126) U/L Total Protein 4.2 L (6.3-8.2) g/dL Albumin 2.5 L (3.5-5.0) g/dL Carcinoembryonic Ag (0.0-4.9) ng/mL Assessment and Plan Plan: 1. Nausea and vomiting secondary to small bowel obstruction about resolving with conservative management. Patient started on clear liquid diet, IV hydration, pain management. Dr. Romo on consult. 2. Stage IV colon cancer status post colectomy and omentectomy with worsening of metastatic service on computed tomography scan. Completed second cycle of Xeloda on 07/16. Consult with Dr. Watkins appreciated. CEA as above. 3. Hyperbilirubinemia secondary to hepatic metastases. Dr. Watkins consulted 4. History of CLL: Has been in remission. 5. Sinus tachycardia resolved 6. BPH: Watch for any urinary retention. 7. GI prophylaxis: Patient will be on pantoprazole 40 mg daily. 8. DVT prophylaxis: Patient will be Lovenox 40 subcu daily 9. Hemoglobin dropped by 2 g secondary to dilution. CODE STATUS: Full code. Discharge plan: Return home. Impression and plan of care have been directed as dictated by the signing physician. Dorina Ortega nurse practitioner acting as scribe for signing physician.
--- NOTE | 2019-07-19 16:15 | P.PN ---
Subjective Progress Note Date: 07/19/19 CHIEF COMPLAINT: Small bowel obstruction HISTORY OF PRESENT ILLNESS: Patient examined at the bedside. He reports passing flatus and having a bowel movement this morning. His abdomen remains distended. Denies nausea or vomiting. PHYSICAL EXAM: VITAL SIGNS: Reviewed. GENERAL: Well-developed in no acute distress. Thin. HEENT: No sclera icterus. Extraocular movements grossly intact. Moist buccal mucosa. Head is atraumatic, normocephalic. ABDOMEN: Soft. Distended. Nontender. Positive bowel sounds. NEUROLOGIC: Alert and oriented. Cranial nerves II through XII grossly intact. ASSESSMENT: 1. Small bowel obstruction, secondary to metastatic disease 2. Colon cancer with metastasis to liver, worsening on repeat CT scan with new osseous metastatis PLAN: Patient was scheduled for exploratory laparotomy today with Dr. Romo. However, this has since been cancelled. May begin clear liquid diet Continue with conservative measures Further management per internal medicine and oncology Nurse practitioner note has been reviewed by physician. Signing provider agrees with the documented findings, assessment, and plan of care. Objective - Vital Signs Vital signs: Vital Signs Temp 97.7 F 07/19/19 12:05 Pulse 64 07/19/19 12:05 Resp 16 07/19/19 12:05 BP 110/54 07/19/19 12:05 Pulse Ox 99 07/19/19 12:05 Intake & Output 07/18/19 07/19/19 07/19/19 18:59 06:59 18:59 Intake Total 986 228 4363 Balance 040 892 6977 Weight 65.317 kg Intake: Intake, IV Titration 652 336 6828 Amount Sodium Chloride 0.9% 1, 382 919 1365 000 ml @ 110 mls/hr IV . Q9H6M [facility] Rx#:[id number] Oral 50 940 Other: Voiding Method Toilet Toilet Toilet # Voids 3 2 3 # Bowel Movements 1 - Labs CBC & Chem 7: 07/19/19 07:02 07/19/19 07:02 Labs: Abnormal Lab Results - Last 24 Hours (Table) 07/17/19 07/19/19 07/19/19 Range/Units 09:05 07:02 07:02 WBC 3.5 L (3.8-10.6) k/uL Hgb 12.1 L (13.0-17.5) gm/dL Hct 36.6 L (39.0-53.0) % RDW 25.8 H (11.5-15.5) % Lymphocytes # 0.9 L (1.0-4.8) k/uL Chloride 109 H (98-107) mmol/L BUN 21 H (9-20) mg/dL Calcium 7.7 L (8.4-10.2) mg/dL Total Bilirubin 1.5 H (0.2-1.3) mg/dL Alkaline Phosphatase 224 H (38-126) U/L Total Protein 4.2 L (6.3-8.2) g/dL Albumin 2.5 L (3.5-5.0) g/dL Carcinoembryonic Ag 211.2 H (0.0-4.9) ng/mL
--- NOTE | 2019-07-19 23:26 | P.PN ---
Subjective Progress Note Date: 07/19/19 The patient has had about 2 mostly liquid bowel movements, and is also passing gas. He has not had recurrent nausea and vomiting. No fever/chills/obvious bleeding. Objective - Vital Signs Vital signs: Vital Signs Temp 97.8 F 07/19/19 19:55 Pulse 86 07/19/19 19:55 Resp 18 07/19/19 19:55 BP 115/61 07/19/19 19:55 Pulse Ox 99 07/19/19 12:05 Intake & Output 07/19/19 07/19/19 07/20/19 06:59 18:59 06:59 Intake Total 330 2280 385 Balance 330 2280 385 Intake: Intake, IV Titration 330 1100 385 Amount Sodium Chloride 0.9% 1, 330 1100 385 000 ml @ 110 mls/hr IV . Q9H6M [facility] Rx#:[id number] Oral 1180 Other: Voiding Method Toilet Toilet # Voids 2 3 1 # Bowel Movements 1 2 - Constitutional General appearance: Present: no acute distress - EENT Eyes: Present: EOMI ENT: Present: hearing grossly normal, normal oropharynx - Respiratory Respiratory: bilateral: CTA - Cardiovascular Rhythm: regular Heart sounds: normal: S1, S2 - Gastrointestinal General gastrointestinal: Present: decreased bowel sounds, soft - Integumentary Integumentary: Present: normal - Neurologic Neurologic: Present: CNII-XII intact - Musculoskeletal Musculoskeletal: Present: generalized weakness, strength equal bilaterally - Labs CBC & Chem 7: 07/19/19 07:02 07/19/19 07:02 Labs: Abnormal Lab Results - Last 24 Hours (Table) 07/19/19 07/19/19 Range/Units 07:02 07:02 WBC 3.5 L (3.8-10.6) k/uL Hgb 12.1 L (13.0-17.5) gm/dL Hct 36.6 L (39.0-53.0) % RDW 25.8 H (11.5-15.5) % Lymphocytes # 0.9 L (1.0-4.8) k/uL Chloride 109 H (98-107) mmol/L BUN 21 H (9-20) mg/dL Calcium 7.7 L (8.4-10.2) mg/dL Total Bilirubin 1.5 H (0.2-1.3) mg/dL Alkaline Phosphatase 224 H (38-126) U/L Total Protein 4.2 L (6.3-8.2) g/dL Albumin 2.5 L (3.5-5.0) g/dL Assessment and Plan (1) Small bowel obstruction Narrative/Plan: The patient has had some clinical improvement, with passage of stool and flatus. Abdomen is less distended. Bowel sounds are diminished, but positive. It was again discussed with the patient that he would be a very suboptimal surgical candidate. Even if his malignancy is not actually progressing, the proposed surgery could be technically quite difficult with a definite possibility of not being able to achieve its objective. In addition the major surgery would lead to stoppage of active treatment of his malignancy for at least some weeks, during which his malignancy could progress further. Therefore the best case scenario for him would be improvement in his presentation with conservative measures. Fortunately, this does appear to be occurring at this time. The patient and his family were advised that in this situation it is unlikely that active surgical intervention would proceed Case discussed in detail with the admitting service. Current Visit: Yes Status: Acute Code(s): K56.609 - UNSP INTESTNL OBST, UNSP TO PARTIAL VERSUS COMPLETE OBST SNOMED Code(s): 073532042 (2) Colon adenocarcinoma Narrative/Plan: Treatment is currently on hold. CEA level did show some increase, but the degree of change is quite mild and nonspecific for progression. Therefore at this time, if the current situation is adequately been ordered, the patient will resume the same regimen as an outpatient. Discussed in detail with the admitting service Current Visit: No Status: Acute Priority: High Code(s): C18.9 - MALIGNANT NEOPLASM OF COLON, UNSPECIFIED SNOMED Code(s): 120352298 (3) CLL (chronic lymphocytic leukemia) Current Visit: No Status: Chronic Priority: Low Code(s): C91.90 - LYMPHOID LEUKEMIA, UNSPECIFIED NOT HAVING ACHIEVED REMISSION SNOMED Code(s): 26916812
[2019-07-20] MEDS: ONDANSETRON 4 MG/2 ML VIAL IVP PRN (04:36)
[2019-07-20] MEDS: HEPARIN SODIUM,PORCINE 5,000 UNIT/ML 1 ML VIAL SQ SCH ×2 (07:55→20:15)
[2019-07-20] MEDS: FAMOTIDINE 20 MG TAB PO SCH (07:55)
[2019-07-20] MEDS: PANTOPRAZOLE 40 MG/10 ML VIAL IV SCH (07:55)
[2019-07-20] MEDS: METOCLOPRAMIDE 5 MG TAB PO SCH ×2 (07:55→12:52)
[2019-07-20] MEDS: SODIUM CHLORIDE 0.9% 1,000 ML IV SCH (12:48)
--- NOTE | 2019-07-20 13:05 | P.PN ---
Subjective Progress Note Date: 07/20/19 CHIEF COMPLAINT: Small bowel obstruction HISTORY OF PRESENT ILLNESS: Patient examined this morning. Spouse present. He is sitting in the chair. He reports two small episodes of bilious emesis throughout the night. Also reports two loose small bowel movements. Tolerating clear liquid diet during examination. PHYSICAL EXAM: VITAL SIGNS: Reviewed. GENERAL: Well-developed in no acute distress. Thin. HEENT: No sclera icterus. Extraocular movements grossly intact. Moist buccal mucosa. Head is atraumatic, normocephalic. ABDOMEN: Soft. Distended. Nontender. Positive bowel sounds. NEUROLOGIC: Alert and oriented. Cranial nerves II through XII grossly intact. ASSESSMENT: 1. Small bowel obstruction, secondary to metastatic disease 2. Colon cancer with metastasis to liver, worsening on repeat CT scan with new osseous metastatis PLAN: Continue clear liquid diet as tolerated Obtain 2V abdominal xray Dr. Romo discussed surgical intervention with patient and who are currently declining surgery. Continue with conservative measures Further management per internal medicine and oncology Nurse practitioner note has been reviewed by physician. Signing provider agrees with the documented findings, assessment, and plan of care. Objective - Vital Signs Vital signs: Vital Signs Temp 97.4 F L 07/20/19 12:14 Pulse 94 07/20/19 12:14 Resp 18 07/20/19 12:14 BP 112/75 07/20/19 12:14 Pulse Ox 94 L 07/20/19 12:14 Intake & Output 07/19/19 07/20/19 07/20/19 18:59 06:59 18:59 Intake Total 2280 385 Balance 2280 385 Intake: Intake, IV Titration 1100 385 Amount Sodium Chloride 0.9% 1, 1100 385 000 ml @ 110 mls/hr IV . Q9H6M [facility] Rx#:[id number] Oral 1180 Other: Voiding Method Toilet Toilet # Voids 3 2 # Bowel Movements 1 - Labs CBC & Chem 7: 07/19/19 07:02 07/19/19 07:02
--- NOTE | 2019-07-20 13:55 | P.PN ---
Subjective Progress Note Date: 07/20/19 79-year-old male patient of Dr. Welch , Dr. Watkins with past medical history of CLL, history of elevated blood pressure and BPH along with mild hyperlipidemia who has been doing well was moved to [facility] was diagnosed with large mass in the right side of the abdomen with metastasis looks like stage IV colon cancer. Review his last colonoscopy from 2015 was negative for any polyp colitis or finding at the time. He underwent right colectomy on April 05 right colectomy and partial omentectomy completed by Dr. Romo. He comes in today with nausea, vomiting started 2 days ago. Patient is on Xeloda and could not finish his last day of Xeloda on Wednesday due to ongoing nausea and vomiting. CT abdomen done today suggest high-grade small bowel obstruction secondary to medullary present trach likely metastatic or any invasive component of primary resected colon carcinoma. With concern of a mass invading or obstructing the small bowel teaching them is entry. Diffuse thickening of the gastric antrum and multifocal thickening of the small bowel adjacent to mesenteric mass there appears to be innumerable hepatic metastasis enlarged compared to what seen on 04/04 and few doses Robles stasis. Numerous pathology: Abdominal and pelvic lymph nodes were also noted. On blood work there is increase in bilirubin to 2.7 alkaline phosphatase is enlarged at 308 bilirubin is 3.4 LFTs are otherwise normal. Patient is to be kept nothing by mouth. Dr. Whaley and Dr. Watkins consulted for further recommendation 07/18: Repeat lab work reveals white count 5.7, hemoglobin 11.9, platelet count 216. CO2 is 31, BUN 21 creatinine 0.67. Total bilirubin 1.5, AST 35, alkaline phosphatase 214, ALT 36, albumin 2.6. Patient has been afebrile, heart rate 77, blood pressure 113/79, pulse ox 97% on room air. Patient states that the nausea is better and he has not had any vomiting today. No NG tube in place. He is taking ice chips. He denies passing any gas. Discussed case with Dr. Watkins and CEA has been ordered and if this is improved, it would indicate the patient has had some improvement with chemotherapy. General surgery is on consult for small bowel obstruction secondary to metastatic disease. Patient does not seem to be a good surgical candidate. 07/19: Patient is scheduled by Dr. Romo with plan for exploratory laparotomy today, however, he is passing gas and having small bowel movements. Discussed case with Dr. Watkins and plan is to continue conservative management. Patient started on clear liquid diet. CEA 211.2, previous level 207.9 on May 24. Repeat lab work today reveals total bilirubin 1.5, alkaline phosphatase 224, albumin 2.5. BUN 21 creatinine 0.85. WBC 3.5, hemoglobin 12.1 and platelet count 212. He has been afebrile, heart rate 76, blood pressure 136/75, pulse ox 98% on room air. 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 He is currently on clear liquid diet. He is on Reglan which will be increased to 10 mg 3 times daily. Abdominal x-ray has been ordered. Plan is to continue clear liquids and conservative management. Patient is afebrile, heart rate 100, blood pressure 119/72, pulse ox 97% on room air. Objective - Vital Signs Vital signs: Vital Signs Temp 98.2 F 07/20/19 05:00 Pulse 100 07/20/19 05:00 Resp 18 07/20/19 05:00 BP 119/72 07/20/19 05:00 Pulse Ox 97 07/20/19 05:00 Intake & Output 07/19/19 07/20/19 07/20/19 18:59 06:59 18:59 Intake Total 2280 385 Balance 2280 385 Intake: Intake, IV Titration 1100 385 Amount Sodium Chloride 0.9% 1, 1100 385 000 ml @ 110 mls/hr IV . Q9H6M [facility] Rx#:[id number] Oral 1180 Other: Voiding Method Toilet Toilet # Voids 3 2 # Bowel Movements 1 - Exam Review of Systems Constitutional: Denies chills, Denies fever, Denies lethargy, Denies malaise, Denies poor appetite, Denies weakness, Denies weight loss Eyes: denies decreased vision, denies diplopia, denies discharge, denies pain Ears: deny: decreased hearing Ears, nose, mouth and throat: Denies dental pain, Denies headache, Denies nasal discharge, Denies nose pain Cardiovascular: Denies chest pain, Denies decreased exercise tolerance, Denies edema, Denies high blood pressure, Denies irregular heart beat, Denies palpitations, Denies paroxysmal nocturnal dyspnea, Denies rapid heart beat, Denies shortness of breath Respiratory: Denies congestion, Denies cough, Denies cough with sputum, Denies dyspnea, Denies home oxygen, Denies wheezing Gastrointestinal: Denies abdominal pain, Denies change in bowel habits, Denies coffee ground emesis, Denies early satiety, Denies excessive gas, Denies heartburn, Denies hematemesis, Denies hematochezia, Denies loss of appetite, endorses nausea reports vomiting, denies flatulence, denies bowel movement Genitourinary: Denies dysuria, Denies flank pain, Denies kidney stones, Denies menorrhagia, Denies urgency, Denies urinary frequency Musculoskeletal: Denies gait dysfunction, Denies limitation of motion, Denies morning stiffness, Denies muscle cramps Integumentary: Denies rash, Denies wounds, Denies brittle nails, Denies change in hair/nails, Denies darkening of skin Neurological: Denies balance difficulties, Denies change in speech, Denies double vision, Denies gait dysfunction, Denies loss of vision, Denies motor disturbance, Denies numbness, Denies paralysis, Denies paresthesias, Denies seizures Psychiatric: Denies anxiety, Denies depression Endocrine: Denies excessive sweating, Denies excessive thirst, Denies high blood sugars, Denies palpitations Hematologic/Lymphatic: Denies easy bruising, Denies lymphadenopathy - Constitutional General appearance: cooperative, no acute distress, thin-appearing, patient is sitting in the chair, at bedside EENT Eyes: anicteric sclerae, PERRLA, normal appearance ENT: hearing grossly normal - Neck Neck: no lymphadenopathy, normal ROM, no other, no rigidity, no stridor, no thyromegaly - Respiratory Respiratory: bilateral: CTA, negative: diminished, dullness, rales, rhonchi - Cardiovascular Rhythm: regular Heart sounds: normal: S1, S2 Abnormal Heart Sounds: no systolic murmur, no diastolic murmur, no rub, no S3 Gallop, no S4 Gallop, no click, no other - Gastrointestinal General gastrointestinal: normal bowel sounds, soft, nontender - Integumentary Integumentary: no rash - Neurologic Neurologic: CNII-XII intact - Musculoskeletal Musculoskeletal: gait normal, strength equal bilaterally - Psychiatric Psychiatric: A&O x's 3, appropriate affect - Labs CBC & Chem 7: 07/19/19 07:02 07/19/19 07:02 Assessment and Plan Plan: 1. Nausea and vomiting secondary to small bowel obstruction about resolving with conservative management. Patient started on clear liquid diet, IV hydration, pain management. Dr. Romo on consult. Plan to continue conse rvative management. Reglan increased to 10 mg 3 times daily. 2. Stage IV colon cancer status post colectomy and omentectomy with worsening of metastatic service on computed tomography scan. Completed second cycle of Xeloda on 07/16. Consult with Dr. Watkins appreciated. CEA as above. 3. Hyperbilirubinemia secondary to hepatic metastases. Dr. Watkins consulted 4. History of CLL: Has been in remission. 5. Sinus tachycardia resolved 6. BPH: Watch for any urinary retention. 7. GI prophylaxis: Patient will be on pantoprazole 40 mg daily. 8. DVT prophylaxis: Patient will be Lovenox 40 subcu daily 9. Hemoglobin dropped by 2 g secondary to dilution. CODE STATUS: Full code. Discharge plan: Return home. Impression and plan of care have been directed as dictated by the signing physician. Dorina Ortega nurse practitioner acting as scribe for signing physician.
--- NOTE | 2019-07-20 14:37 | XR ---
EXAMINATION TYPE: XR abdomen 2V DATE OF EXAM: 07/20/2019 2:23 PM CLINICAL HISTORY: Follow-up on small bowel obstruction with nausea and vomiting TECHNIQUE: Supine and upright abdominal radiographs were obtained. COMPARISON: 07/17/2019. FINDINGS: There are dilated centralized loops of small bowel measuring up to 4.0 cm with differential air-fluid levels, progressed from the study of 07/17/2019. Colonic bowel gas is seen on the supine vie w. Surgical sutures are seen within the right lower quadrant. No gross evidence of pneumoperitoneum. Lung bases are well aerated. Osseous structures appear intact with mild to moderate degenerative coreas ge. IMPRESSION: Slightly increased caliber of the dilated loops small bowel that are centralized air-flui d levels indicative of small bowel obstruction.
[2019-07-20] MEDS: METOCLOPRAMIDE 10 MG TAB PO SCH (18:00)
[2019-07-20 21:49] VITALS: RESP 16
[2019-07-21] MEDS: SODIUM CHLORIDE 0.9% 1,000 ML IV SCH ×2 (00:45→09:31)
[2019-07-21 08:10] LABS: ALT 34 U/L (21-72); AST 34 U/L (17-59); African American GFR (CKD) >90 (>60 ml/min/1.73 sqM); Albumin 2.8 g/dL (3.5-5.0); Alkaline Phosphatase 256 U/L (38-126); Anion Gap 10 mmol/L; Blood Urea Nitrogen 21 mg/dL (9-20); Carbon Dioxide 22 mmol/L (22-30); Chloride 110 mmol/L (98-107); Glucose 108 mg/dL (74-99); Potassium 3.7 mmol/L (3.5-5.1); Sodium 142 mmol/L (137-145); Total Bilirubin 1.5 mg/dL (0.2-1.3); Total Protein 4.6 g/dL (6.3-8.2)
[2019-07-21] MEDS: METOCLOPRAMIDE 10 MG TAB PO SCH ×2 (09:30→14:24)
[2019-07-21] MEDS: ONDANSETRON 4 MG/2 ML VIAL IVP PRN (09:30)
[2019-07-21] MEDS: PANTOPRAZOLE 40 MG/10 ML VIAL IV SCH (09:31)
[2019-07-21] MEDS: HEPARIN SODIUM,PORCINE 5,000 UNIT/ML 1 ML VIAL SQ SCH (09:31)
--- NOTE | 2019-07-21 11:45 | P.DS ---
Providers Date of admission: 07/17/19 11:43 Expected date of discharge: 07/21/19 Attending physician: Harshal Matias MD Consults: 07/17/19 11:44 Consult Physician Urgent Consulting Provider: Arsen Romo Consult Reason/Comments: Small bowel obstruction, colon cancer Do you want consulting provider notified?: Yes Consult Physician Urgent Consulting Provider: Beto Watkins Consult Reason/Comments: Oncological care: Small bowel obstruction with colon cancer Do you want consulting provider notified?: Yes Primary care physician: [facility] Course: 79-year-old male patient of Dr. Welch , Dr. Watkins with past medical history of CLL, history of elevated blood pressure and BPH along with mild hyperlipidemia who has been doing well was moved to [facility] was diagnosed with large mass in the right side of the abdomen with metastasis looks like stage IV colon cancer. Review his last colonoscopy from 2015 was negative for any polyp colitis or finding at the time. He underwent right colectomy on April 05 right colectomy and partial omentectomy completed by Dr. Romo. He comes in today with nausea, vomiting started 2 days ago. Patient is on Xeloda and could not finish his last day of Xeloda on Wednesday due to ongoing nausea and vomiting. CT abdomen done today suggest high-grade small bowel obstruction secondary to medullary present trach likely metastatic or any invasive component of primary resected colon carcinoma. With concern of a mass invading or obstructing the small bowel teaching them is entry. Diffuse thickening of the gastric antrum and multifocal thickening of the small bowel adjacent to mesenteric mass there appears to be innumerable hepatic metastasis enlarged compared to what seen on 04/04 and few doses Robles stasis. Numerous pathology: Abdominal and pelvic lymph nodes were also noted. On blood work there is increase in bilirubin to 2.7 alkaline phosphatase is enlarged at 308 bilirubin is 3.4 LFTs are otherwise normal. Patient is to be kept nothing by mouth. Dr. Whaley and Dr. Watkins consulted for further recommendation 07/18: Repeat lab work reveals white count 5.7, hemoglobin 11.9, platelet count 216. CO2 is 31, BUN 21 creatinine 0.67. Total bilirubin 1.5, AST 35, alkaline phosphatase 214, ALT 36, albumin 2.6. Patient has been afebrile, heart rate 77, blood pressure 113/79, pulse ox 97% on room air. Patient states that the nausea is better and he has not had any vomiting today. No NG tube in place. He is taking ice chips. He denies passing any gas. Discussed case with Dr. Watkins and CEA has been ordered and if this is improved, it would indicate the patient has had some improvement with chemotherapy. General surgery is on consult for small bowel obstruction secondary to metastatic disease. Patient does not seem to be a good surgical candidate. 07/19: Patient is scheduled by Dr. Romo with plan for exploratory laparotomy today, however, he is passing gas and having small bowel movements. Discussed case with Dr. Watkins and plan is to continue conservative management. Patient started on clear liquid diet. CEA 211.2, previous level 207.9 on May 24. Repeat lab work today reveals total bilirubin 1.5, alkaline phosphatase 224, albumin 2.5. BUN 21 creatinine 0.85. WBC 3.5, hemoglobin 12.1 and platelet count 212. He has been afebrile, heart rate 76, blood pressure 136/75, pulse ox 98% on room air. 07/20: Patient's states that he had vomiting small amount 2 times during the fast food shift lead. He is currently on clear liquid diet. He is on Reglan which will be increased to 10 mg 3 times daily. Abdominal x-ray has been ordered. Plan is to continue clear liquids and conservative management. Patient is afebrile, heart rate 100, blood pressure 119/72, pulse ox 97% on room air. 07/21: The patient had a new episode of vomiting this morning around 645. He vomited a small amount. He states he is having little bit of gas and a little bit of bowel movement. He denies any abdominal pain. Small bowel obstruction has not resolved at this point and patient and his are agreeable for discharge with hospice. Medications will be addressed. [facility] will meet with the patient today. Discharge diagnoses: 1. Nausea and vomiting secondary to small bowel obstruction secondary to underlying colon cancer. 2. Stage IV colon cancer status post colectomy and omentectomy with worsening of metastatic service on computed tomography scan. 3. Hyperbilirubinemia secondary to hepatic metastases. 4. History of CLL: Has been in remission. 5. Sinus tachycardia resolved 6. BPH 7. Hemoglobin dropped by 2 g secondary to dilution. Discharge plan: Return home with [facility]. Impression and plan of care have been directed as dictated by the signing physician. Dorina Ortega nurse practitioner acting as scribe for signing physician. Patient Condition at Discharge: Stable Plan - Discharge Summary Discharge Rx Participant: Yes New Discharge Prescriptions: New LORazepam ORAL CONC [Ativan Intensol] 2 mg PO Q4HR PRN #30 ml PRN Reason: Anxiety Atropine Ophth Soln 1% 5Ml [Isopto Atropine 1% 5Ml] 2 drops PO Q4HR PRN #1 bottle PRN Reason: Secretions MORPHINE ORAL MARIBELL CONC 20mg/mL [Roxanol Oral Soln Conc 20MG/ML] 5 mg PO Q4H PRN #30 ml PRN Reason: Pain Metoclopramide [Reglan] 10 mg PO AC-TID #30 tab Simethicone 80 mg PO Q6H #30 tab.chew Ondansetron [Zofran] 4 mg PO Q8HR PRN #60 tab PRN Reason: Nausea Continue Triamcinolone 0.1% Cream [Kenalog 0.1% Cream] 1 applicatio TOPICAL TID PRN PRN Reason: RASH ON FACE Loperamide HCl [Imodium A-D] 2 mg PO DAILY PRN PRN Reason: Diarrhea Calcium Carb/Magnesium Hydrox [Rolaids Chewable Tablet] 1 tab PO DAILY PRN PRN Reason: Heartburn Discontinued Capecitabine [Xeloda] 500 mg PO QID Discharge Medication List Calcium Carb/Magnesium Hydrox [Rolaids Chewable Tablet] 1 tab PO DAILY PRN 07/17/19 [History] Loperamide HCl [Imodium A-D] 2 mg PO DAILY PRN 07/17/19 [History] Triamcinolone 0.1% Cream [Kenalog 0.1% Cream] 1 applicatio TOPICAL TID PRN 07/17/19 [History] Atropine Ophth Soln 1% 5Ml [Isopto Atropine 1% 5Ml] 2 drops PO Q4HR PRN #1 bottle 07/21/19 [Rx] LORazepam ORAL CONC [Ativan Intensol] 2 mg PO Q4HR PRN #30 ml 07/21/19 [Rx] MORPHINE ORAL MARIBELL CONC 20mg/mL [Roxanol Oral Soln Conc 20MG/ML] 5 mg PO Q4H PRN #30 ml 07/21/19 [Rx] Metoclopramide [Reglan] 10 mg PO AC-TID #30 tab 07/21/19 [Rx] Ondansetron [Zofran] 4 mg PO Q8HR PRN #60 tab 07/21/19 [Rx] Simethicone 80 mg PO Q6H #30 tab.chew 07/21/19 [Rx] Follow up Appointment(s)/Referral(s): Jacob Welch MD [Primary Care Provider] - As Needed Patient Instructions/Handouts: Metoclopramide (By mouth), Lorazepam (By mouth), Simethicone (By mouth), Atropine (Into the eye), Ondansetron (By mouth), Morphine, Slow Release (By mouth), Bowel Obstruction (DC) Discharge Disposition: HOME WITH HOSPICE
[2019-07-21 11:57] VITALS: BP 123/67; PULSE 95; TEMP 97.6
--- NOTE | 2019-07-21 14:59 | P.PN ---
Subjective Progress Note Date: 07/21/19 CHIEF COMPLAINT: Small bowel obstruction HISTORY OF PRESENT ILLNESS: Patient examined this morning. Spouse present. He is sitting in the chair. He reports an episode of bilious emesis overnight. Reports loose bowel movements overnight. He is drinking clear liquid diet during examination. Patient had episode of bilious emesis during examination. Abdominal x-ray completed yesterday reveals slightly increased caliber of dilated loops of small bowel indicative of small bowel obstruction. NG tube decompression was recommended. Patient states he does not want NG tube placed at this time. PHYSICAL EXAM: VITAL SIGNS: Reviewed. GENERAL: Well-developed in no acute distress. Thin. HEENT: No sclera icterus. Extraocular movements grossly intact. Moist buccal mucosa. Head is atraumatic, normocephalic. ABDOMEN: Soft. Distended. Nontender. Positive bowel sounds. NEUROLOGIC: Alert and oriented. Cranial nerves II through XII grossly intact. ASSESSMENT: 1. Small bowel obstruction, secondary to metastatic disease 2. Colon cancer with metastasis to liver, worsening on repeat CT scan with new osseous metastatis PLAN: Patient has decided to go home today with hospice Surgical team agreeable to discharge plan Nurse practitioner note has been reviewed by physician. Signing provider agrees with the documented findings, assessment, and plan of care. Objective - Vital Signs Vital signs: Vital Signs Temp 97.6 F 07/21/19 11:32 Pulse 95 07/21/19 11:32 Resp 16 07/21/19 11:32 BP 123/67 07/21/19 11:32 Pulse Ox 98 07/21/19 11:32 Intake & Output 07/20/19 07/21/19 07/21/19 18:59 06:59 18:59 Intake Total 1520 1570 Balance 1520 1570 Weight 65.317 kg Intake: Intake, IV Titration 440 1210 Amount Sodium Chloride 0.9% 1, 440 1210 000 ml @ 110 mls/hr IV . Q9H6M BHAVIN Rx#:[id number] Oral 1080 360 Other: Voiding Method Toilet Toilet Toilet # Voids 5 2 - Labs CBC & Chem 7: 07/19/19 07:02 07/21/19 07:28 Labs: Abnormal Lab Results - Last 24 Hours (Table) 07/21/19 Range/Units 07:28 Chloride 110 H (98-107) mmol/L BUN 21 H (9-20) mg/dL Glucose 108 H (74-99) mg/dL Calcium 8.0 L (8.4-10.2) mg/dL Total Bilirubin 1.5 H (0.2-1.3) mg/dL Alkaline Phosphatase 256 H (38-126) U/L Total Protein 4.6 L (6.3-8.2) g/dL Albumin 2.8 L (3.5-5.0) g/dL
== END 2019-07-21 16:00 | disposition hospice, home (50) | DRG 375 ==
LOC: EC 08:29 → 3NMEDONC 11:43 → OBSVTOIN 11:43 → 3NMEDONC 13:18
PROVIDERS: ADMIT Internal Medicine; ATTEND Internal Medicine
DX: C78.6 Secondary malignant neoplasm of retroperitoneum and peritoneum (principal); C77.9 Secondary and unspecified malignant neoplasm of lymph node, unspecified; C18.9 Malignant neoplasm of colon, unspecified; C78.7 Secondary malignant neoplasm of liver and intrahepatic bile duct; C91.11 Chronic lymphocytic leukemia of B-cell type in remission; R18.8 Other ascites; E78.5 Hyperlipidemia, unspecified; I10 Essential (primary) hypertension; N40.0 Benign prostatic hyperplasia without lower urinary tract symptoms; Z80.7 Family history of other malignant neoplasms of lymphoid, hematopoietic and related tissues; Z82.49 Family history of ischemic heart disease and other diseases of the circulatory system; Z87.891 Personal history of nicotine dependence; Z90.49 Acquired absence of other specified parts of digestive tract; Z80.3 Family history of malignant neoplasm of breast; Z51.5 Encounter for palliative care; Z66 Do not resuscitate; Z88.0 Allergy status to penicillin; Z88.2 Allergy status to sulfonamides; Z86.010 Personal history of colon polyps; Z79.899 Other long term (current) drug therapy
CPT/HCPCS: 36415; 74018; 74019; 74177; 80053; 82150; 82378; 83690; 85025; 96361; 96374; 96375; 99285